=== PATIENT | male | born 1970 | race Caucasian/White ===

== ENCOUNTER 2019-09-26 14:00 | Emergency (ER) | payer SELFPAY ==
[2019-09-26] MEDS ORDERED: TORAdol 30 mg Injection IM ONE (14:16)
[2019-09-26 14:18] VITALS: O2SAT 96
--- NOTE | 2019-09-26 14:19 | ERPHSYRPT ---
- History of Present Illness Time Seen by Provider: 09/26/19 14:10 Source: patient Exam Limitations: no limitations Patient Subjective Stated Complaint: pt reports right elbow pain for 1 1/2 months. pt denies any type of injury or accident. 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 Triage Nursing Assessment: pt is aox3, pupils perrl, afebrile, resps easy and non labored, cap refill < 3 seconds, radial pulses strong an equal, ROM, sensation intact. skin is intact, no obvious injury or defomity. Physician History: Patient has had painful right posterior elbow pain for the past 6 weeks. 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 Occurred: other (6 weeks ago) Method of Injury: unknown Quality: constant Severity of Pain-Max: severe Severity of Pain-Current: severe Extremities Pain Location: elbow: right (posterior), forearm: right (proximal posterior) Modifying Factors: Worsens With: movement (particularly lifting) Associated Symptoms: No back pain, No chills, No chest discomfort, No chest pain , No dyspnea, No fever, No jaw pain, No nausea, No neck pain, No sweating, No short of breath, No vomiting Allergies/Adverse Reactions: No Known Drug Allergies Allergy (Verified 09/26/19 14:18) Hx Tetanus, Diphtheria Vaccination/Date Given: (unk) Hx Influenza Vaccination/Date Given: Yes Hx Pneumococcal Vaccination/Date Given: No Immunizations Up to Date: Yes - Review of Systems Constitutional: No Fever, No Chills Eyes: No Symptoms, No Eye Pain Ears, Nose, & Throat: No Symptoms, No Mouth Swelling, No Painful Swallowing Respiratory: No Cough, No Dyspnea Cardiac: No Chest Pain, No Edema, No Syncope Abdominal/Gastrointestinal: No Abdominal Pain, No Nausea, No Vomiting, No Diarrhea Genitourinary Symptoms: No Dysuria, No Hematuria Musculoskeletal: No Arthralgias, No Back Pain, No Neck Pain, No Fall, No Joint Redness, No Joint Pain Skin: No Rash Neurological: No Dizziness, No Focal Weakness, No Sensory Changes Psychological: No Symptoms Endocrine: No Symptoms, No Polyuria Hematologic/Lymphatic: No Easy Bleeding, No Easy Bruising All Other Systems: Reviewed and Negative - Past Medical History Pertinent Past Medical History: No Endocrine Medical History: Diabetes Type II Other Medical History: hx of kidney stones - Past Surgical History Past Surgical History: Yes Neuro Surgical History: No Pertinent History Cardiac: No Pertinent History Respiratory: No Pertinent History Gastrointestinal: No Pertinent History Genitourinary: No Pertinent History Musculoskeletal: Orthopedic Surgery Male Surgical History: No Pertinent History Other Surgical History: LEFT ELBOW SURGERYx3. neck surgery - Social History Smoking Status: Never smoker Exposure to second hand smoke: No Drug Use: none Patient Lives Alone: Yes - Nursing Vital Signs Nursing Vital Signs: Initial Vital Signs Temperature 98.0 F 09/26/19 14:06 Pulse Rate 95 H 09/26/19 14:06 Respiratory Rate 20 09/26/19 14:06 Blood Pressure 108/81 09/26/19 14:06 O2 Sat by Pulse Oximetry 96 09/26/19 14:06 Pain Scale Pain Intensity 2 - Physical Exam General Appearance: no apparent distress, alert Eyes, Ears, Nose, Throat Exam: moist mucous membranes, No pharynx normal Neck Exam: non-tender, supple, No limited range of motion, No lymphadenopathy (R ), No lymphadenopathy (L), No tenderness midline Cardiovascular/Respiratory Exam: chest non-tender, normal breath sounds, regular rate/rhythm, heart sounds normal, no JVD, no respiratory distress, normal peripheral pulses Abdominal Exam: non-tender, soft, No guarding Back Exam: normal inspection, No CVA tenderness, No vertebral tenderness Shoulder Exam: normal inspection, non-tender, no evidence of injury, normal ROM , No limited ROM Elbow/Forearm Exam: normal inspection, no evidence of injury, normal ROM, bone tenderness (posterior proximal olecranon), pain (posterior aspect of the olecranon only; no pain at the elbow joint, or insertion of the extensor tendons), No asymmetry, No deformity, No ecchymosis, No limited ROM, No soft tissue tenderness, No swelling Wrist Exam: normal inspection, non-tender, no evidence of injury, normal ROM, No ecchymosis Hand Exam: normal inspection, non-tender, no evidence of injury, normal ROM, No deformity DTR - Upper Extremity Exam: bicep (R): 2+, bicep (L): 2+, tricep (R): 2+, tricep (L): 2+ Neuro/Tendon Exam: normal sensation, normal motor functions, normal tendon functions Mental Status Exam: alert, oriented x 3, cooperative Skin Exam: normal color, warm, dry, No rash, No petechiae, No jaundice, No abrasion, No cyanosis, No diaphoresis, No ecchymosis SpO2 Interpretation: normal SpO2: 96 O2 Delivery: Room Air - Course Nursing assessment & vital signs reviewed: Yes - Radiology Exams Right Elbow X-ray Interpretation: Interpreted by me, Reviewed by me, No Fracture, Nml Alignment, Nml Soft Tissues Ordered Tests: Active Orders 24 hr Category Date Time Status ELBOW (MINIMUM 3 VIEWS) Stat Exams 09/26/19 14:17 Taken Medication Summary Discontinued Medications Generic Name Dose Route Start Last Admin Trade Name Juma PRN Reason Stop Dose Admin Ketorolac Tromethamine 60 mg 09/26/19 14:16 09/26/19 14:34 Toradol 30 Mg Injection IM 09/26/19 14:17 60 mg STAT ONE Administration Ketorolac Tromethamine Confirm 09/26/19 14:33 Toradol 30 Mg Injection Administered 09/26/19 14:34 Dose 60 mg .ROUTE .[employer] ONE - Progress Progress: improved Progress Note: 09/26/19 15:00 Pain improving. No neurologic or vascular deficits distal to the area of pain. 09/26/19 15:06 the patient has had right posterior elbow pain for the past 6 weeks. 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 Patient had negative x-rays at today's examination and had no appreciable neurovascular deficits or any signs or symptoms consistent with tennis or golfer's elbow at this examination of the tendon insertions in the elbow. My concern is that the pain was do to repetitive pressure to the area from his position on how he drives to location and about any other known mechanism of injury hernia the repetitive strain injury to the right elbow joint. Patient was treated with Toradol which help with some of his discomfort. Patient will be given instructions on how to ice the area and followup with either his primary care provider or orthopedic clinic in 2 days to determine the need for further evaluation such as MRI, it infrastructure specialist referral, or referral to physical therapy/occupational therapy. I reviewed with patient in detail with signs and symptoms to come back to emergency room as patient does not require any media production support manager evaluation or referral to any other tertiary care center or inpatient evaluation today. Counseled pt/family regarding: diagnosis, need for follow-up, rad results - Departure Departure Disposition: Home Clinical Impression: Right elbow pain Condition: Good Critical Care Time: No Referrals: BERNA PARRISH [Primary Care Provider] - [facility]-Ortho M-F [id number] Instructions: Contusion (DC), Elbow Sprain (DC), Overuse Injuries Additional Instructions: Your x-rays were interpreted as negative for any fractures or dislocations at this time explaining her pain. Follow up with your primary care provider or the orthopedic walk-in clinic in 2 days to continue evaluation of her pain. Do your best to try to take the stress off of that area of your elbow including watching how your shifting away when you or driving. Return immediately back return if any worsening discoloration to her hand, weakness her hand, loss of sensation to her forearm or hand, worsening pain, or any other concerning signs or symptoms that were not present at today's emergency room visit for immediate reevaluation in the emergency department. Prescriptions: Etodolac 400 mg [Lodine 400 mg] 400 mg PO BID PRN PRN #20 tablet PRN Reason: Pain
[2019-09-26] MEDS ORDERED: TORAdol 30 mg Injection ONE (14:33)
[2019-09-26 14:55] VITALS: BP 118/82; PULSE 96
--- NOTE | 2019-09-26 20:56 | XRAY ---
Indication: Posterior elbow pain 6 months. Comparison: None 3 views of the right elbow obtained. No bony, articular, or soft tissue abnormalities.
== END 2019-09-26 15:11 | disposition home or self-care (01) ==
LOC: ED 14:00
DX: M25.521 Pain in right elbow (principal); E11.9 Type 2 diabetes mellitus without complications
CPT/HCPCS: 73080; 96372; 99284; J1885

== ENCOUNTER 2024-04-17 23:02 | Emergency (ER) | payer OTHER ==
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
[2024-04-17 23:40] VITALS: TEMP 97.6
[2024-04-18 00:10] LABS: Absolute Neutrophil Ct (ANC) 5.45 x10^3/uL (1.78-5.38); BASOPHIL % 0.7 % (0.2-1.2); Basophil (Absolute #) 0.05 x10^3/uL (0.01-0.08); Eosinophil % 0.7 % (0.8-7.0); Eosinophil (Absolute #) 0.05 x10^3/uL (0.04-0.54); Hematocrit 43.8 % (40.1-51.0); Hemoglobin 15.3 g/dL (13.7-17.5); IMMATURE GRAN # 0.03 x10^3u/L (0.001-0.031); IMMATURE GRAN % 0.4 % (0.001-0.429); Lymphocyte (Absolute #) 1.09 x10^3/uL (1.32-3.57); Lymphocytes % 15.1 % (21.8-53.1); Mean Cell Volume 84.1 fL (79.0-92.2); Mean Corpuscular Hemoglobin 29.4 pg (25.7-32.2); Mean Corpuscular Hgb Concent. 34.9 g/dL (32.3-36.5); Mean Platelet Volume 11.3 fL (9.4-12.4); Monocyte (Absolute #) 0.53 x10^3/uL (0.30-0.82); Monocytes % 7.4 % (5.3-12.2); Neutrophil % 75.7 % (34.0-67.9); Platelet Count 149 x10^3/uL (163-337); Red Blood Count 5.21 x10^6/uL (4.63-6.08); Red Cell Distribution Width 12.5 % (11.6-14.4); White Blood Count 7.2 x10^3/uL (4.23-9.07)
[2024-04-18 00:23] LABS: ANION GAP 18.3 MEQ/L (5-15); Calcium 9.8 mg/dL (8.4-10.2); Creatinine 1 0.74 mg/dL (0.66-1.25); EST GLOMERULAR FILTRATION RATE 108.3 ML/MIN; Potassium 4.3 mmol/L (3.5-5.1)
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
[2024-04-18 02:05] VITALS: BP 108/81; PULSE 78; RESP 17; O2SAT 97
[2024-04-18] MEDS ORDERED: PERCOCET TABLET 5/325MG ONE (02:06)
[2024-04-18] MEDS: PERCOCET TABLET 5/325MG PO STA ×2 (02:07→02:09)
== END 2024-04-18 02:19 | disposition home or self-care (01) ==
LOC: ED 23:02
DX: Z04.1 Encounter for examination and observation following transport accident (principal); S22.42XA Multiple fractures of ribs, left side, initial encounter for closed fracture; S32.030A Wedge compression fracture of third lumbar vertebra, initial encounter for closed fracture; S32.018A Other fracture of first lumbar vertebra, initial encounter for closed fracture; S32.028A Other fracture of second lumbar vertebra, initial encounter for closed fracture; S32.038A Other fracture of third lumbar vertebra, initial encounter for closed fracture; S02.2XXA Fracture of nasal bones, initial encounter for closed fracture; S02.401A Maxillary fracture, unspecified side, initial encounter for closed fracture; V89.2XXA Person injured in unspecified motor-vehicle accident, traffic, initial encounter; M54.2 Cervicalgia; E11.9 Type 2 diabetes mellitus without complications; E78.5 Hyperlipidemia, unspecified; Z79.4 Long term (current) use of insulin; Z79.891 Long term (current) use of opiate analgesic; Z79.899 Other long term (current) drug therapy
CPT/HCPCS: 36415; 70450; 71250; 72125; 74176; 76376; 80048; 84484; 85025; 93005; 99285; A9270-GY

== ENCOUNTER 2025-06-05 10:39 | Inpatient (IN) | payer OTHER ==
[2025-06-05] MEDS ORDERED: PIPERACILLIN/TAZOBACTAM IV ONE ×3 (11:11→23:35)
--- NOTE | 2025-06-05 11:14 | ERPHSYRPT ---
- History of Present Illness Time Seen by Provider: 06/05/25 10:44 Source: patient Exam Limitations: no limitations Patient Subjective Stated Complaint: pt has severe blisters on his left and right toes and left ankle for 3 days Triage Nursing Assessment: Pt brought to the ER by his girlfriend, marcela finch, rates pain as 2/10 at this time, pulses normal, skin n/w/d, left foot has blisters covering the top surface of every toe except for the large toe which has a blister about the 1/3 of a size of the surface and also has a blister on the lateral ankle, the top of the foot is red and swollen, the right foot has a blister on the medial side of the large toe covering the entire side, does not have any other blisters on him, pt is a diabetic, denies any injuries, doesn't appear to be in any distress Physician History: 55-year-old male presents to the emergency room with bilateral lower extremity blistering for the past 3 days patient reports he is insulin-dependent diabetic denies any fevers or chills denies any sick contacts patient is ambulatory denies any recent known exposure to lakes or areas of water denies any medications patient is now in ED for further eval Occurred: days ago (3) Quality: constant Severity of Pain-Max: moderate Severity of Pain-Current: moderate Lower Extremities Pain: 1st toe: bilateral, 2nd toe: left, 3rd toe: left, 4th toe: left Modifying Factors: Improves With: nothing Allergies/Adverse Reactions: No Known Drug Allergies Allergy (Verified 06/05/25 10:57) Home Medications: Insulin Glargine [Lantus Insulin] 20 unit SQ DAILY 06/05/25 [History] Insulin Lispro [Humalog] 0 unit SQ .SLIDING SCALE 06/05/25 [History] Hx Tetanus, Diphtheria Vaccination/Date Given: (unk) Hx Influenza Vaccination/Date Given: Yes Hx Pneumococcal Vaccination/Date Given: No Travel Risk - International Travel Have you traveled outside of the country in past 3 weeks: No - Emerging Infectious Disease Are you exhibiting symptoms associated with any current EIDs: No - Review of Systems Constitutional: No Fever, No Chills Eyes: No Symptoms Ears, Nose, & Throat: No Symptoms Respiratory: No Cough, No Dyspnea Cardiac: No Chest Pain, No Edema, No Syncope Abdominal/Gastrointestinal: No Abdominal Pain, No Nausea, No Vomiting, No Diarrhea Genitourinary Symptoms: No Dysuria Musculoskeletal: Joint Redness, Joint Swelling, No Back Pain, No Neck Pain Skin: Cellulitis, Induration, No Rash Neurological: No Dizziness, No Focal Weakness, No Sensory Changes Psychological: No Symptoms Endocrine: No Symptoms All Other Systems: Reviewed and Negative - Past Medical History Pertinent Past Medical History: No Neurological History: No Pertinent History ENT History: No Pertinent History Respiratory History: No Pertinent History Endocrine Medical History: Diabetes Type II Musculoskeletal History: No Pertinent History GI Medical History: No Pertinent History History: No Pertinent History Psycho-Social History: No Pertinent History Male Reproductive Disorders: No Pertinent History Other Medical History: hx of kidney stones - Past Surgical History Past Surgical History: Yes Neuro Surgical History: No Pertinent History Cardiac: No Pertinent History Respiratory: No Pertinent History Gastrointestinal: No Pertinent History Genitourinary: No Pertinent History Musculoskeletal: Orthopedic Surgery Male Surgical History: No Pertinent History Other Surgical History: LEFT ELBOW SURGERYx3. neck surgery - Social History Smoking Status: Never smoker Exposure to second hand smoke: Yes Drug Use: none - Social Determinants of Health Will the patient participate in the screening: Yes Do you worry about a steady place to live?: No Do you have any problems with any of the following?: No known problems In the past 12 months,have you had to go without utilities?: No Transportation Issues: No Has anyone in your support network made you feel unsafe?: No Have you or anyone in your house had to go w/o enough food: No - Nursing Vital Signs Nursing Vital Signs: Initial Vital Signs Temperature 97.1 F 06/05/25 10:48 Pulse Rate 88 06/05/25 10:48 Blood Pressure 132/74 06/05/25 10:48 O2 Sat by Pulse Oximetry 97 06/05/25 10:48 Pain Scale Pain Intensity 2 - Physical Exam General Appearance: alert Eyes, Ears, Nose, Throat Exam: moist mucous membranes Neck Exam: non-tender, supple Cardiovascular/Respiratory Exam: chest non-tender, normal breath sounds, regular rate/rhythm, no respiratory distress Gastrointestinal/Abdominal Exam: non-tender, guarding Back Exam: normal inspection, No vertebral tenderness Foot Exam: left foot: pain, soft tissue tenderness, swelling, bilateral foot: other (Patient has a diabetic foot ulcer with some gangrenous changes to the left foot patient does have palpable pulses) Neuro/Tendon Exam: normal sensation, normal motor functions Mental Status Exam: alert, oriented x 3, cooperative Skin Exam: normal color, warm, dry SpO2: 98 Ordered Tests: Active Orders 24 hr Category Date Time Status Bedrest ROUTINE Activity 06/05/25 14:38 Ordered Admit as Inpatient ROUTINE Care 06/05/25 14:35 Ordered Call Admit Doctor for Orders ON ADMISSION Care 06/05/25 14:35 Ordered Fryer Line Helper ROUTINE Care 06/05/25 14:38 Ordered Fryer Line Helper STAT Care 06/05/25 10:51 Active Fryer Line Helper STAT Care 06/05/25 10:52 Active Code Status Order ROUTINE Care 06/05/25 14:35 Ordered IV Insertion STAT Care 06/05/25 10:51 Active POCT Glucose Check ONCE Care 06/05/25 14:35 Ordered POCT Glucose Check STAT Care 06/05/25 12:24 Active Pulse Oximetry (ED) STAT Care 06/05/25 10:51 Active Telemetry q6h Care 06/05/25 14:35 Ordered Telemetry q6h Care 06/05/25 14:38 Ordered NPO Diet 06/05/25 14:38 Ordered LOWER EXTREMITY WO CONTRAST [CT] Stat Exams 06/05/25 10:57 Completed LOWER EXTREMITY WO CONTRAST [CT] Stat Exams 06/05/25 10:58 Completed BLOOD CULTURE Stat Lab 06/05/25 11:10 Received BLOOD CULTURE Stat Lab 06/05/25 11:29 Received CBC W DIFF Stat Lab 06/05/25 11:29 Completed CMP Stat Lab 06/05/25 11:29 Completed CULTURE,URINE Stat Lab 06/05/25 11:26 Received CULTURE,WOUND Stat Lab 06/05/25 11:10 Received CULTURE,WOUND Stat Lab 06/05/25 11:26 Received Glucose,Critical Care Stat Lab 06/05/25 10:51 Completed Lactic Acid Stat Lab 06/05/25 10:51 Completed MAGNESIUM Stat Lab 06/05/25 12:24 Completed POCT GLUCOSE Stat Lab 06/05/25 13:54 Completed PROCALCITONIN Stat Lab 06/05/25 11:29 Completed PROTIME WITH INR Stat Lab 06/05/25 11:00 Completed PTT Stat Lab 06/05/25 11:00 Completed SED RATE [Erythrocyte Sedimentation Rate] Stat Lab 06/05/25 11:00 Completed UA W/RFX UR CULTURE Stat Lab 06/05/25 11:26 Completed Pulse Oximetry CONTINUOUS RT 06/05/25 14:38 Ordered Medication Summary Generic Name Dose Route Start Last Admin Trade Name Juma PRN Reason Stop Dose Admin Vancomycin HCl 1.25 gm in 250 mls @ 150 mls/hr 06/05/25 11:15 06/05/25 14:01 Vancomycin 1.25 Gm/250 Ml Bag IV 06/08/25 11:14 Infused Q12H OFELIA Infusion Discontinued Medications Generic Name Dose Route Start Last Admin Trade Name uJma PRN Reason Stop Dose Admin Sodium Chloride 1,000 mls @ 999 mls/hr 06/05/25 10:51 06/05/25 12:10 Sodium Chloride 0.9% 1000 Ml IV 06/05/25 11:51 Infused .Q1H1M STA Infusion Sodium Chloride Confirm 06/05/25 11:06 Sodium Chloride 0.9% 1000 Ml Administered 06/05/25 11:07 Dose 1,000 mls @ ud .ROUTE .STK-MED ONE Piperacillin Sod/Tazobactam 100 mls @ 200 mls/hr 06/05/25 11:08 06/05/25 11:53 Sod 4.5 gm/ Sodium Chloride IV 06/05/25 11:37 Infused STAT STA Infusion Sodium Chloride Confirm 06/05/25 11:11 Sodium Chloride 0.9% Administered 06/05/25 11:12 Dose 100 mls @ ud .ROUTE .STK-MED ONE Sodium Chloride 1,000 mls @ 999 mls/hr 06/05/25 12:24 06/05/25 13:43 Sodium Chloride 0.9% 1000 Ml IV 06/05/25 13:24 Infused .Q1H1M STA Infusion Sodium Chloride Confirm 06/05/25 12:27 Sodium Chloride 0.9% 1000 Ml Administered 06/05/25 12:28 Dose 1,000 mls @ ud .ROUTE .STK-MED ONE Piperacillin Sod/Tazobactam Sod Confirm 06/05/25 11:11 Piperacillin/Tazobactam Sodium 4.5 Gm Vial Administered 06/05/25 11:12 Dose 4.5 gm IV .STK-MED ONE Lab/Rad Data: Laboratory Result Diagrams 06/05/25 11:29 06/05/25 11:29 Laboratory Results 06/05/25 06/05/25 06/05/25 Range/Units 13:54 12:24 11:29 WBC (4.23-9.07) x10^3/uL RBC (4.63-6.08) x10^6/uL Hgb (13.7-17.5) g/dL Hct (40.1-51.0) % MCV (79.0-92.2) fL MCH (25.7-32.2) pg MCHC (32.3-36.5) g/dL RDW (11.6-14.4) % Plt Count (163-337) x10^3/uL MPV (9.4-12.4) fL Gran % (34.0-67.9) % Immature Gran % (Auto) (0.001-0.429) % Nucleat RBC Rel Count (0.00-0.2) % Eos # (Auto) (0.04-0.54) x10^3/uL Immature Gran # (Auto) (0.001-0.031) x10^3u/L Absolute Lymphs (auto) (1.32-3.57) x10^3/uL Absolute Monos (auto) (0.30-0.82) x10^3/uL Absolute Nucleated RBC (0.00-0.012) x10^3u/L Lymphocytes % (21.8-53.1) % Monocytes % (5.3-12.2) % Eosinophils % (0.8-7.0) % Basophils % (0.2-1.2) % Absolute Granulocytes (1.78-5.38) x10^3/uL Basophils # (0.01-0.08) x10^3/uL ESR (0-15) mm/hr PT (9.4-12.5) SECONDS INR (0.8-3.0) APTT (25.1-36.5) SECONDS Glucose (70-110) Sodium (135-145) mmol/L Potassium (3.5-5.1) mmol/L Chloride (98-107) mmol/L Carbon Dioxide (22-30) mmol/L Anion Gap (5-15) MEQ/L BUN (9-20) mg/dL Creatinine (0.66-1.25) mg/dL Estimated GFR ML/MIN POC Glucometer 378 H (74 to 106) mg/dL Lactic Acid (0.4-2.0) Calcium (8.4-10.2) mg/dL Magnesium 2.0 (1.6-2.3) mg/dL Total Bilirubin (0.2-1.3) mg/dL AST (17-59) U/L ALT (0-50) U/L Alkaline Phosphatase (38-126) U/L Serum Total Protein (6.3-8.2) g/dL Albumin (3.5-5.0) g/dL Procalcitonin (0.030-0.080) ng/mL Urine Color (Yellow) Urine Appearance (Clear) Urine pH (4.6-8.0) Ur Specific [place] (1.005-1.030) Urine Protein (Negative) Urine Glucose (UA) (Negative) mg/dL Urine Ketones (Negative) Urine Blood (Negative) Urine Nitrite (Negative) Urine Bilirubin (Negative) Urine Urobilinogen (0.2) mg/dL Ur Leukocyte Esterase (Negative) U Hyaline Cast (Auto) (0-2) /LPF Urine Microscopic RBC (0-5) /HPF Urine Microscopic WBC (0-5) /HPF Ur Epithelial Cells (None Seen) /HPF Urine Bacteria (None Seen) /HPF Urine Culture Reflexed (NO) ABO Group A Rh Factor NEGATIVE Antibody Screen NEGATIVE (NEGATIVE) 06/05/25 06/05/25 06/05/25 Range/Units 11:29 11:29 11:29 WBC 7.0 (4.23-9.07) x10^3/uL RBC 4.61 L (4.63-6.08) x10^6/uL Hgb 12.8 L (13.7-17.5) g/dL Hct 40.9 (40.1-51.0) % MCV 88.7 (79.0-92.2) fL MCH 27.8 (25.7-32.2) pg MCHC 31.3 L (32.3-36.5) g/dL RDW 13.1 (11.6-14.4) % Plt Count 126 L (163-337) x10^3/uL MPV 11.1 (9.4-12.4) fL Gran % 72.6 H (34.0-67.9) % Immature Gran % (Auto) 0.6 H (0.001-0.429) % Nucleat RBC Rel Count 0.0 (0.00-0.2) % Eos # (Auto) 0.14 (0.04-0.54) x10^3/uL Immature Gran # (Auto) 0.04 H (0.001-0.031) x10^3u/L Absolute Lymphs (auto) 1.03 L (1.32-3.57) x10^3/uL Absolute Monos (auto) 0.63 (0.30-0.82) x10^3/uL Absolute Nucleated RBC 0.00 (0.00-0.012) x10^3u/L Lymphocytes % 14.8 L (21.8-53.1) % Monocytes % 9.1 (5.3-12.2) % Eosinophils % 2.0 (0.8-7.0) % Basophils % 0.9 (0.2-1.2) % Absolute Granulocytes 5.06 (1.78-5.38) x10^3/uL Basophils # 0.06 (0.01-0.08) x10^3/uL ESR (0-15) mm/hr PT (9.4-12.5) SECONDS INR (0.8-3.0) APTT (25.1-36.5) SECONDS Glucose 728 H* (70-110) Sodium 128 L (135-145) mmol/L Potassium 4.3 (3.5-5.1) mmol/L Chloride 94 L (98-107) mmol/L Carbon Dioxide 24 (22-30) mmol/L Anion Gap 14.2 (5-15) MEQ/L BUN 16 (9-20) mg/dL Creatinine 0.64 L (0.66-1.25) mg/dL Estimated GFR 111.8 ML/MIN POC Glucometer (74 to 106) mg/dL Lactic Acid (0.4-2.0) Calcium 8.8 (8.4-10.2) mg/dL Magnesium (1.6-2.3) mg/dL Total Bilirubin 1.10 (0.2-1.3) mg/dL AST 24 (17-59) U/L ALT 24 (0-50) U/L Alkaline Phosphatase 166 H (38-126) U/L Serum Total Protein 7.8 (6.3-8.2) g/dL Albumin 3.9 (3.5-5.0) g/dL Procalcitonin 0.183 H (0.030-0.080) ng/mL Urine Color (Yellow) Urine Appearance (Clear) Urine pH (4.6-8.0) Ur Specific [place] (1.005-1.030) Urine Protein (Negative) Urine Glucose (UA) (Negative) mg/dL Urine Ketones (Negative) Urine Blood (Negative) Urine Nitrite (Negative) Urine Bilirubin (Negative) Urine Urobilinogen (0.2) mg/dL Ur Leukocyte Esterase (Negative) U Hyaline Cast (Auto) (0-2) /LPF Urine Microscopic RBC (0-5) /HPF Urine Microscopic WBC (0-5) /HPF Ur Epithelial Cells (None Seen) /HPF Urine Bacteria (None Seen) /HPF Urine Culture Reflexed (NO) ABO Group Rh Factor Antibody Screen (NEGATIVE) 06/05/25 06/05/25 06/05/25 Range/Units 11:26 11:00 11:00 WBC (4.23-9.07) x10^3/uL RBC (4.63-6.08) x10^6/uL Hgb (13.7-17.5) g/dL Hct (40.1-51.0) % MCV (79.0-92.2) fL MCH (25.7-32.2) pg MCHC (32.3-36.5) g/dL RDW (11.6-14.4) % Plt Count (163-337) x10^3/uL MPV (9.4-12.4) fL Gran % (34.0-67.9) % Immature Gran % (Auto) (0.001-0.429) % Nucleat RBC Rel Count (0.00-0.2) % Eos # (Auto) (0.04-0.54) x10^3/uL Immature Gran # (Auto) (0.001-0.031) x10^3u/L Absolute Lymphs (auto) (1.32-3.57) x10^3/uL Absolute Monos (auto) (0.30-0.82) x10^3/uL Absolute Nucleated RBC (0.00-0.012) x10^3u/L Lymphocytes % (21.8-53.1) % Monocytes % (5.3-12.2) % Eosinophils % (0.8-7.0) % Basophils % (0.2-1.2) % Absolute Granulocytes (1.78-5.38) x10^3/uL Basophils # (0.01-0.08) x10^3/uL ESR 75 H (0-15) mm/hr PT 10.6 (9.4-12.5) SECONDS INR 0.94 (0.8-3.0) APTT 25.8 (25.1-36.5) SECONDS Glucose (70-110) Sodium (135-145) mmol/L Potassium (3.5-5.1) mmol/L Chloride (98-107) mmol/L Carbon Dioxide (22-30) mmol/L Anion Gap (5-15) MEQ/L BUN (9-20) mg/dL Creatinine (0.66-1.25) mg/dL Estimated GFR ML/MIN POC Glucometer (74 to 106) mg/dL Lactic Acid (0.4-2.0) Calcium (8.4-10.2) mg/dL Magnesium (1.6-2.3) mg/dL Total Bilirubin (0.2-1.3) mg/dL AST (17-59) U/L ALT (0-50) U/L Alkaline Phosphatase (38-126) U/L Serum Total Protein (6.3-8.2) g/dL Albumin (3.5-5.0) g/dL Procalcitonin (0.030-0.080) ng/mL Urine Color Yellow (Yellow) Urine Appearance Clear (Clear) Urine pH 6.0 (4.6-8.0) Ur Specific [place] >=1.030 A (1.005-1.030) Urine Protein Negative (Negative) Urine Glucose (UA) >=1000 A (Negative) mg/dL Urine Ketones Trace A (Negative) Urine Blood Negative (Negative) Urine Nitrite Negative (Negative) Urine Bilirubin Negative (Negative) Urine Urobilinogen 1.0 A (0.2) mg/dL Ur Leukocyte Esterase Trace A (Negative) U Hyaline Cast (Auto) NONE SEEN (0-2) /LPF Urine Microscopic RBC 0-2 (0-5) /HPF Urine Microscopic WBC 21-50 A (0-5) /HPF Ur Epithelial Cells None Seen (None Seen) /HPF Urine Bacteria Many A (None Seen) /HPF Urine Culture Reflexed YES (NO) ABO Group Rh Factor Antibody Screen (NEGATIVE) 06/05/25 Range/Units 10:51 WBC (4.23-9.07) x10^3/uL RBC (4.63-6.08) x10^6/uL Hgb (13.7-17.5) g/dL Hct (40.1-51.0) % MCV (79.0-92.2) fL MCH (25.7-32.2) pg MCHC (32.3-36.5) g/dL RDW (11.6-14.4) % Plt Count (163-337) x10^3/uL MPV (9.4-12.4) fL Gran % (34.0-67.9) % Immature Gran % (Auto) (0.001-0.429) % Nucleat RBC Rel Count (0.00-0.2) % Eos # (Auto) (0.04-0.54) x10^3/uL Immature Gran # (Auto) (0.001-0.031) x10^3u/L Absolute Lymphs (auto) (1.32-3.57) x10^3/uL Absolute Monos (auto) (0.30-0.82) x10^3/uL Absolute Nucleated RBC (0.00-0.012) x10^3u/L Lymphocytes % (21.8-53.1) % Monocytes % (5.3-12.2) % Eosinophils % (0.8-7.0) % Basophils % (0.2-1.2) % Absolute Granulocytes (1.78-5.38) x10^3/uL Basophils # (0.01-0.08) x10^3/uL ESR (0-15) mm/hr PT (9.4-12.5) SECONDS INR (0.8-3.0) APTT (25.1-36.5) SECONDS Glucose 685 H* (70-110) Sodium (135-145) mmol/L Potassium (3.5-5.1) mmol/L Chloride (98-107) mmol/L Carbon Dioxide (22-30) mmol/L Anion Gap (5-15) MEQ/L BUN (9-20) mg/dL Creatinine (0.66-1.25) mg/dL Estimated GFR ML/MIN POC Glucometer (74 to 106) mg/dL Lactic Acid 1.8 (0.4-2.0) Calcium (8.4-10.2) mg/dL Magnesium (1.6-2.3) mg/dL Total Bilirubin (0.2-1.3) mg/dL AST (17-59) U/L ALT (0-50) U/L Alkaline Phosphatase (38-126) U/L Serum Total Protein (6.3-8.2) g/dL Albumin (3.5-5.0) g/dL Procalcitonin (0.030-0.080) ng/mL Urine Color (Yellow) Urine Appearance (Clear) Urine pH (4.6-8.0) Ur Specific [place] (1.005-1.030) Urine Protein (Negative) Urine Glucose (UA) (Negative) mg/dL Urine Ketones (Negative) Urine Blood (Negative) Urine Nitrite (Negative) Urine Bilirubin (Negative) Urine Urobilinogen (0.2) mg/dL Ur Leukocyte Esterase (Negative) U Hyaline Cast (Auto) (0-2) /LPF Urine Microscopic RBC (0-5) /HPF Urine Microscopic WBC (0-5) /HPF Ur Epithelial Cells (None Seen) /HPF Urine Bacteria (None Seen) /HPF Urine Culture Reflexed (NO) ABO Group Rh Factor Antibody Screen (NEGATIVE) - Progress Progress Note: 06/05/25 11:13 Discussed the case with Dr. Haynes the [employer] sales consultant who recommends IV antibiotics and admission for potential washout we will obtain CT imaging patient does have an elevated blood sugar however her pH is within normal limits unlikely DKA but hyperglycemia due to infection patient has diabetic foot ulcer with gangrenous changes started on IV Vanco and Zosyn with fluids will need admission awaiting lab results and admission to the hospital 06/05/25 14:23 Ligaments and Tendons: Unremarkable major foot ligaments and tendons, including the Achilles tendon, plantar fascia, and other tendons around the foot. IMPRESSION: 1. Degenerative changes. Calcaneal spur noted. 2. No lytic or sclerotic lesions. 3. Subcutaneous edema seen around the foot. 4. Soft tissue swelling around the right fifth metatarsophalangeal joint. 5. MRI study is advised to rule out bone marrow edema. 06/05/25 14:23 None. TECHNIQUE: Contiguous axial CT images of the left foot were obtained without intravenous contrast. Sagittal and coronal multiplanar reformats were acquired. One of the following dose reduction techniques was utilized for this exam: Automated exposure control, adjustment of the mA and/or kV according to patient size, and use of iterative reconstruction. FINDINGS: Bones: Normal alignment of the tarsal, metatarsal, and phalangeal bones. No fractures or dislocations. No lytic or sclerotic lesions. calcaneal spur. Distal Achilles tendon calcifications. Joints: Normal appearance of the ankle, subtalar, midtarsal, and metatarsophalangeal joints. No joint effusions or significant degenerative changes. Normal articular surfaces without erosions or osteophyte formation. Soft Tissues: Subcutaneous edema seen around the foot. Soft tissue swelling around the left metatarsophalangeal joint, with joint effusion. No evidence of tendinopathy or ligamentous injury. Muscles: Normal appearance of the surrounding musculature. No muscle atrophy or abnormal density changes. Ligaments and Tendons: Intact and normal appearance of the major foot ligaments and tendons, including the Achilles tendon, plantar fascia, and other tendons around the foot. IMPRESSION: 1. Degenerative changes. Calcaneal spur noted. 2. No lytic or sclerotic lesions. 3. Subcutaneous edema seen around the foot. 4. Soft tissue swelling around the left metatarsophalangeal joint, with joint effusion. 5. MRI study is advised to rule out bone marrow edema. 06/05/25 14:38 Discussed case with podiatry Dr. Haynes who would be happy to consult for potential washout patient was started on IV Vanco and Zosyn patient will be admitted to the hospitalist service discussed with Dr. Reyna. Admited to medicine service - Departure Departure Disposition: In-patient Admission Clinical Impression: Hyperglycemia, Hyperosmolar hyperglycemic state (HHS), Pseudohyponatremia Diabetic foot ulcer Qualifiers: Diabetic foot ulcer location: unspecified part of foot Diabetes mellitus type: other specified (including JUANCHO) Laterality: unspecified laterality Non-pressure ulcer stage: unspecified non-pressure ulcer stage Qualified Code(s): E13.621 - Other specified diabetes mellitus with foot ulcer UTI (urinary tract infection) Qualifiers: Urinary tract infection type: site unspecified Hematuria presence: without hematuria Qualified Code(s): N39.0 - Urinary tract infection, site not specified Condition: Serious Critical Care Time: No Referrals: CAREN GARZA NP [Primary Care Provider, [facility]] - Follow up/PCP as directed
[2025-06-05 11:15] LABS: Glucose,Critical Care 685.0 (70-110)
[2025-06-05 11:45] LABS: BASOPHIL % 0.9 % (0.2-1.2); Basophil (Absolute #) 0.06 x10^3/uL (0.01-0.08); Eosinophil (Absolute #) 0.14 x10^3/uL (0.04-0.54); Hematocrit 40.9 % (40.1-51.0); Hemoglobin 12.8 g/dL (13.7-17.5); IMMATURE GRAN # 0.04 x10^3u/L (0.001-0.031); IMMATURE GRAN % 0.6 % (0.001-0.429); Lymphocyte (Absolute #) 1.03 x10^3/uL (1.32-3.57); Mean Corpuscular Hemoglobin 27.8 pg (25.7-32.2); Mean Corpuscular Hgb Concent. 31.3 g/dL (32.3-36.5); Monocyte (Absolute #) 0.63 x10^3/uL (0.30-0.82); NUCLEATED RBC # 0.00 x10^3u/L (0.00-0.012); NUCLEATED RBC % 0.0 % (0.00-0.2); Platelet Count 126 x10^3/uL (163-337); Red Blood Count 4.61 x10^6/uL (4.63-6.08); White Blood Count 7.0 x10^3/uL (4.23-9.07)
[2025-06-05 12:05] LABS: Calcium 8.8 mg/dL (8.4-10.2); Carbon Dioxide 24.0 mmol/L (22-30); Creatinine 1 0.64 mg/dL (0.66-1.25); EST GLOMERULAR FILTRATION RATE 111.8 ML/MIN; Potassium 4.3 mmol/L (3.5-5.1); SGOT/AST 24.0 U/L (17-59); SGPT/ALT 24.0 U/L (0-50); Total Protein 7.8 g/dL (6.3-8.2)
[2025-06-05] MEDS: VANCOMYCIN 1.25 GM/250 ML BAG 1.25 GM/250 ML PIGGYBACK IV SCH (12:05)
[2025-06-05 12:07] LABS: INR 0.94 (0.8-3.0); PROTIME 10.6 SECONDS (9.4-12.5); PTT 25.8 SECONDS (25.1-36.5)
[2025-06-05 12:20] LABS: Glucose 728.0 mg/dL (74-106)
[2025-06-05 12:25] LABS: Glucose, Urine >=1000 mg/dL (Negative); Protein,Urine Dip Negative (Negative); RBC 0-2 /HPF (0-5); WBC 21-50 /HPF (0-5)
[2025-06-05 13:57] LABS: ABO TYPING A; RH TYPING NEGATIVE
--- NOTE | 2025-06-05 13:59 | XRAY ---
CLINICAL HISTORY: infection r/o osteo COMPARISON: None. TECHNIQUE: Contiguous axial CT images of the right foot were obtained without intravenous contrast. Sagittal and coronal multiplanar reformats were acquired. One of the following dose reduction techniques were utilized for this exam: Automated exposure control, adjustment of the mA and/or kV according to patient size, use of iterative reconstruction. DLP: 1997 mGy-cm, CTDI: 62 mGy FINDINGS: Movement artifacts degrade image quality. Bones: Normal alignment of the tarsal, metatarsal, and phalangeal bones. No fractures or dislocations. No lytic or sclerotic lesions. Calcaneal spur noted. Achillis tendon enthesophyte. Distal tibial osteophytes. Joints: Soft tissue swelling around the right fifth metatarsophalangeal joint. Normal appearance of the ankle, subtalar, midtarsal, and other metatarsophalangeal joints. No joint effusions. Mild degenerative changes. Soft Tissues: Vascular calcifications. Subcutaneous edema seen around the foot. No evidence of tendinopathy or ligamentous injury. Muscles: Normal appearance of the surrounding musculature. No muscle atrophy or abnormal density changes. Ligaments and Tendons: Unremarkable major foot ligaments and tendons, including the Achilles tendon, plantar fascia, and other tendons around the foot. IMPRESSION: 1. Degenerative changes. Calcaneal spur noted. 2. No lytic or sclerotic lesions. 3. Subcutaneous edema seen around the foot. 4. Soft tissue swelling around the right fifth metatarsophalangeal joint. 5. MRI study is advised to rule out bone marrow edema. Electronically Signed by: Luis Manuel Guadalupe MD. (06/05/2025 13:57:33 EST)
--- NOTE | 2025-06-05 14:01 | XRAY ---
CLINICAL HISTORY: imnfection r/o osteomyelitis COMPARISON: None. TECHNIQUE: Contiguous axial CT images of the left foot were obtained without intravenous contrast. Sagittal and coronal multiplanar reformats were acquired. One of the following dose reduction techniques was utilized for this exam: Automated exposure control, adjustment of the mA and/or kV according to patient size, and use of iterative reconstruction. FINDINGS: Bones: Normal alignment of the tarsal, metatarsal, and phalangeal bones. No fractures or dislocations. No lytic or sclerotic lesions. calcaneal spur. Distal Achilles tendon calcifications. Joints: Normal appearance of the ankle, subtalar, midtarsal, and metatarsophalangeal joints. No joint effusions or significant degenerative changes. Normal articular surfaces without erosions or osteophyte formation. Soft Tissues: Subcutaneous edema seen around the foot. Soft tissue swelling around the left metatarsophalangeal joint, with joint effusion. No evidence of tendinopathy or ligamentous injury. Muscles: Normal appearance of the surrounding musculature. No muscle atrophy or abnormal density changes. Ligaments and Tendons: Intact and normal appearance of the major foot ligaments and tendons, including the Achilles tendon, plantar fascia, and other tendons around the foot. IMPRESSION: 1. Degenerative changes. Calcaneal spur noted. 2. No lytic or sclerotic lesions. 3. Subcutaneous edema seen around the foot. 4. Soft tissue swelling around the left metatarsophalangeal joint, with joint effusion. 5. MRI study is advised to rule out bone marrow edema. Electronically Signed by: Luis Manuel Guadalupe MD. (06/05/2025 14:01:17 EST)
--- NOTE | 2025-06-05 15:40 | PCM.HP ---
<DIDI TROTTER - Last Filed: 06/05/25 15:35> History of Present Illness - Chief Complaint Chief Complaint: Diabetic foot ulcer with gangrenous changes Date: 06/05/25 History of Present Illness: Mr.SOWDERS ARORA is a 55 year old male with a pmhx of insulin-dependent type 2 diabetes and hyperlipidemia who presented on 06-05-25 for evaluation of rapidly progressive bilateral foot blistering and erythema. He reports waking up with severe blister formation involving all toes of the left foot, accompanied by erythema extending to the midfoot and an additional blister at the left ankle. He notes a smaller blister on the right great toe along the medial aspect. He denies any recent trauma, new footwear, chemical exposures, mora, or systemic symptoms such as fever or chills. Pain is described as a constant sharp sensation, minimal at rest but escalating to severe intensity with weight- bearing. He reports no numbness or new sensory deficit. Examination demonstrated intact distal pulses, normal strength, and preserved sensation bilaterally, with left-sided erythema more prominent than the right. Denies fever,cough, sob, cp, abdominal pain, DIAZ, dizziness, N/V/D. Vital signs were stable on arrival. Lab findings remarkable for normocytic anemia with hemoglobin 12.8, marked hyperglycemia with glucose 728 improving to 378 following fluids, and pseudohyponatremia with sodium 128 in the setting of severe hyperglycemia. No acidosis was present; carbon dioxide, anion gap, and lactic acid were all within normal limits. Inflammatory markers were notable for elevated ESR 75 and procalcitonin 0.183. Alk phos was elevated at 166. Urinalysis demonstrated heavy glucosuria greater than 1000, trace leukocyte esterase, 2150 WBCs, and bacteria on microscopy. CT imaging of the right lower extremity showed degenerative changes with a calcaneal spur, soft tissue edema around the foot, and swelling involving the right fifth metatarsophalangeal joint without lytic or sclerotic lesions. CT of the left lower extremity demonstrated similar degenerative changes and calcaneal spur, with more significant soft tissue edema, swelling involving the left metatarsophalangeal joint, and associated joint effusion. Findings raised concern for deep soft-tissue infection; MRI was recommended but is unavailable at this facility over the weekend. Dr. Haynes (Podiatry) reviewed the case and is evaluating for possible operative washout . Empiric treatment with vancomycin and piperacillin-tazobactam has been initiated. - Review of Systems Constitutional: No Symptoms Eyes: No Symptoms Ears, Nose, & Throat: No Symptoms Respiratory: No Symptoms Cardiac: No Symptoms Abdominal/Gastrointestinal: No Symptoms Genitourinary Symptoms: No Symptoms Musculoskeletal: No Symptoms Skin: Skin Lesions, Other Neurological: No Symptoms Psychological: No Symptoms Endocrine: No Symptoms Hematologic/Lymphatic: No Symptoms Immunological/Allergic: No Symptoms Medications & Allergies Home Medications: Home Medication List Insulin Glargine [Lantus Insulin] 25 unit SQ BID 06/05/25 [History Confirmed 06/05/25] Insulin Lispro [Humalog] 0 unit SQ .SLIDING SCALE 06/05/25 [History Confirmed 06/05/25] Allergies/Adverse Reactions: Allergies Allergy/AdvReac Type Severity Reaction Status Date / Time No Known Drug Allergies Allergy Verified 06/05/25 10:57 - Past Medical History Past Medical History: No Neurological History: No Pertinent History ENT History: No Pertinent History Cardiac History: High Cholesterol Respiratory History: No Pertinent History Endocrine Medical History: Diabetes Type II Musculoskelatal History: No Pertinent History GI Medical History: No Pertinent History History: Other Pyscho-Social History: No Pertinent History Male Reproductive Disorders: No Pertinent History Comment: hx of kidney stones - Past Surgical History Past Surgical History: Yes Neuro Surgical History: No Pertinent History Cardiac History: No Pertinent History Respiratory Surgery: No Pertinent History GI Surgical History: No Pertinent History Genitourinary Surgical Hx: No Pertinent History Musculskeletal Surgical Hx: Orthopedic Surgery Male Surgical History: No Pertinent History Other Surgical History: LEFT ELBOW SURGERYx3. neck surgery Significant Family History: heart disease, diabetes - Social History Smoking Status: Never smoker Exposure to second hand smoke: Yes Alcohol: Rarely Drug Use: none - Social Determinants of Health Will the patient participate in the screening: Yes Do you worry about a steady place to live?: No Do you have any problems with any of the following?: No known problems In the past 12 months,have you had to go without utilities?: No Have you or anyone in your house had to go without enough: No Transportation Issues: No Has anyone in your support network made you feel unsafe?: No - Physical Exam Vital Signs: Vital Signs - 24 hr Temp Pulse Resp BP BP Pulse Ox 06/05/25 14:57 97 F 70 17 124/79 95 06/05/25 14:39 98 06/05/25 14:00 113/65 98 06/05/25 13:54 97 06/05/25 13:40 95 06/05/25 13:33 96 06/05/25 13:01 117/86 95 06/05/25 12:01 82 14 96/61 95 06/05/25 11:31 83 27 H 111/63 96 06/05/25 11:01 98 06/05/25 11:00 94 H 14 128/82 95 06/05/25 10:48 97.1 F 88 132/74 97 General Appearance: no apparent distress Neurologic Exam: alert, oriented x 3, cooperative Eye Exam: PERRL/EOMI Ears, Nose, Throat Exam: normal ENT inspection Neck Exam: normal inspection Respiratory Exam: normal breath sounds, lungs clear Cardiovascular Exam: regular rate/rhythm, normal heart sounds, normal peripheral pulses (Peripheral pulses intact bilaterally, including DP/PT pulses in both fe et.) Gastrointestinal/Abdomen Exam: soft, normal bowel sounds Rectal Exam: deferred Back Exam: normal inspection Extremity Exam: normal inspection, normal range of motion, inflammation Skin Exam: other (Left foot: Multiplebullae involving all toes; erythema extending to midfoot. Additional blister at the left ankle. Warm to touch. No crepitus. Intact sensation and 5/5 motor strength. Cap refill brisk.Right foot: Isolated blister on the medial right great toe Mild erythema surrounding area.) Results - Labs Lab/Micro Results: Lab Results-Last 24 Hours 06/05/25 06/05/25 06/05/25 Range/Units 10:51 11:00 11:00 WBC (4.23-9.07) x10^3/uL RBC (4.63-6.08) x10^6/uL Hgb (13.7-17.5) g/dL Hct (40.1-51.0) % MCV (79.0-92.2) fL MCH (25.7-32.2) pg MCHC (32.3-36.5) g/dL RDW (11.6-14.4) % Plt Count (163-337) x10^3/uL MPV (9.4-12.4) fL Gran % (34.0-67.9) % Immature Gran % (Auto) (0.001-0.429) % Nucleat RBC Rel Count (0.00-0.2) % Eos # (Auto) (0.04-0.54) x10^3/uL Immature Gran # (Auto) (0.001-0.031) x10^3u/L Absolute Lymphs (auto) (1.32-3.57) x10^3/uL Absolute Monos (auto) (0.30-0.82) x10^3/uL Absolute Nucleated RBC (0.00-0.012) x10^3u/L Lymphocytes % (21.8-53.1) % Monocytes % (5.3-12.2) % Eosinophils % (0.8-7.0) % Basophils % (0.2-1.2) % Absolute Granulocytes (1.78-5.38) x10^3/uL Basophils # (0.01-0.08) x10^3/uL ESR 75 H (0-15) mm/hr PT 10.6 (9.4-12.5) SECONDS INR 0.94 (0.8-3.0) APTT 25.8 (25.1-36.5) SECONDS Glucose 685 H* (70-110) Sodium (135-145) mmol/L Potassium (3.5-5.1) mmol/L Chloride (98-107) mmol/L Carbon Dioxide (22-30) mmol/L Anion Gap (5-15) MEQ/L BUN (9-20) mg/dL Creatinine (0.66-1.25) mg/dL Estimated GFR ML/MIN POC Glucometer (74 to 106) mg/dL Lactic Acid 1.8 (0.4-2.0) Calcium (8.4-10.2) mg/dL Magnesium (1.6-2.3) mg/dL Total Bilirubin (0.2-1.3) mg/dL AST (17-59) U/L ALT (0-50) U/L Alkaline Phosphatase (38-126) U/L Serum Total Protein (6.3-8.2) g/dL Albumin (3.5-5.0) g/dL Procalcitonin (0.030-0.080) ng/mL Urine Color (Yellow) Urine Appearance (Clear) Urine pH (4.6-8.0) Ur Specific Benton (1.005-1.030) Urine Protein (Negative) Urine Glucose (UA) (Negative) mg/dL Urine Ketones (Negative) Urine Blood (Negative) Urine Nitrite (Negative) Urine Bilirubin (Negative) Urine Urobilinogen (0.2) mg/dL Ur Leukocyte Esterase (Negative) U Hyaline Cast (Auto) (0-2) /LPF Urine Microscopic RBC (0-5) /HPF Urine Microscopic WBC (0-5) /HPF Ur Epithelial Cells (None Seen) /HPF Urine Bacteria (None Seen) /HPF Urine Culture Reflexed (NO) ABO Group Rh Factor Antibody Screen (NEGATIVE) 06/05/25 06/05/25 06/05/25 Range/Units 11:26 11:29 11:29 WBC 7.0 (4.23-9.07) x10^3/uL RBC 4.61 L (4.63-6.08) x10^6/uL Hgb 12.8 L (13.7-17.5) g/dL Hct 40.9 (40.1-51.0) % MCV 88.7 (79.0-92.2) fL MCH 27.8 (25.7-32.2) pg MCHC 31.3 L (32.3-36.5) g/dL RDW 13.1 (11.6-14.4) % Plt Count 126 L (163-337) x10^3/uL MPV 11.1 (9.4-12.4) fL Gran % 72.6 H (34.0-67.9) % Immature Gran % (Auto) 0.6 H (0.001-0.429) % Nucleat RBC Rel Count 0.0 (0.00-0.2) % Eos # (Auto) 0.14 (0.04-0.54) x10^3/uL Immature Gran # (Auto) 0.04 H (0.001-0.031) x10^3u/L Absolute Lymphs (auto) 1.03 L (1.32-3.57) x10^3/uL Absolute Monos (auto) 0.63 (0.30-0.82) x10^3/uL Absolute Nucleated RBC 0.00 (0.00-0.012) x10^3u/L Lymphocytes % 14.8 L (21.8-53.1) % Monocytes % 9.1 (5.3-12.2) % Eosinophils % 2.0 (0.8-7.0) % Basophils % 0.9 (0.2-1.2) % Absolute Granulocytes 5.06 (1.78-5.38) x10^3/uL Basophils # 0.06 (0.01-0.08) x10^3/uL ESR (0-15) mm/hr PT (9.4-12.5) SECONDS INR (0.8-3.0) APTT (25.1-36.5) SECONDS Glucose 728 H* (70-110) Sodium 128 L (135-145) mmol/L Potassium 4.3 (3.5-5.1) mmol/L Chloride 94 L (98-107) mmol/L Carbon Dioxide 24 (22-30) mmol/L Anion Gap 14.2 (5-15) MEQ/L BUN 16 (9-20) mg/dL Creatinine 0.64 L (0.66-1.25) mg/dL Estimated GFR 111.8 ML/MIN POC Glucometer (74 to 106) mg/dL Lactic Acid (0.4-2.0) Calcium 8.8 (8.4-10.2) mg/dL Magnesium (1.6-2.3) mg/dL Total Bilirubin 1.10 (0.2-1.3) mg/dL AST 24 (17-59) U/L ALT 24 (0-50) U/L Alkaline Phosphatase 166 H (38-126) U/L Serum Total Protein 7.8 (6.3-8.2) g/dL Albumin 3.9 (3.5-5.0) g/dL Procalcitonin (0.030-0.080) ng/mL Urine Color Yellow (Yellow) Urine Appearance Clear (Clear) Urine pH 6.0 (4.6-8.0) Ur Specific Benton >=1.030 A (1.005-1.030) Urine Protein Negative (Negative) Urine Glucose (UA) >=1000 A (Negative) mg/dL Urine Ketones Trace A (Negative) Urine Blood Negative (Negative) Urine Nitrite Negative (Negative) Urine Bilirubin Negative (Negative) Urine Urobilinogen 1.0 A (0.2) mg/dL Ur Leukocyte Esterase Trace A (Negative) U Hyaline Cast (Auto) NONE SEEN (0-2) /LPF Urine Microscopic RBC 0-2 (0-5) /HPF Urine Microscopic WBC 21-50 A (0-5) /HPF Ur Epithelial Cells None Seen (None Seen) /HPF Urine Bacteria Many A (None Seen) /HPF Urine Culture Reflexed YES (NO) ABO Group Rh Factor Antibody Screen (NEGATIVE) 06/05/25 06/05/25 06/05/25 Range/Units 11:29 11:29 12:24 WBC (4.23-9.07) x10^3/uL RBC (4.63-6.08) x10^6/uL Hgb (13.7-17.5) g/dL Hct (40.1-51.0) % MCV (79.0-92.2) fL MCH (25.7-32.2) pg MCHC (32.3-36.5) g/dL RDW (11.6-14.4) % Plt Count (163-337) x10^3/uL MPV (9.4-12.4) fL Gran % (34.0-67.9) % Immature Gran % (Auto) (0.001-0.429) % Nucleat RBC Rel Count (0.00-0.2) % Eos # (Auto) (0.04-0.54) x10^3/uL Immature Gran # (Auto) (0.001-0.031) x10^3u/L Absolute Lymphs (auto) (1.32-3.57) x10^3/uL Absolute Monos (auto) (0.30-0.82) x10^3/uL Absolute Nucleated RBC (0.00-0.012) x10^3u/L Lymphocytes % (21.8-53.1) % Monocytes % (5.3-12.2) % Eosinophils % (0.8-7.0) % Basophils % (0.2-1.2) % Absolute Granulocytes (1.78-5.38) x10^3/uL Basophils # (0.01-0.08) x10^3/uL ESR (0-15) mm/hr PT (9.4-12.5) SECONDS INR (0.8-3.0) APTT (25.1-36.5) SECONDS Glucose (70-110) Sodium (135-145) mmol/L Potassium (3.5-5.1) mmol/L Chloride (98-107) mmol/L Carbon Dioxide (22-30) mmol/L Anion Gap (5-15) MEQ/L BUN (9-20) mg/dL Creatinine (0.66-1.25) mg/dL Estimated GFR ML/MIN POC Glucometer (74 to 106) mg/dL Lactic Acid (0.4-2.0) Calcium (8.4-10.2) mg/dL Magnesium 2.0 (1.6-2.3) mg/dL Total Bilirubin (0.2-1.3) mg/dL AST (17-59) U/L ALT (0-50) U/L Alkaline Phosphatase (38-126) U/L Serum Total Protein (6.3-8.2) g/dL Albumin (3.5-5.0) g/dL Procalcitonin 0.183 H (0.030-0.080) ng/mL Urine Color (Yellow) Urine Appearance (Clear) Urine pH (4.6-8.0) Ur Specific Benton (1.005-1.030) Urine Protein (Negative) Urine Glucose (UA) (Negative) mg/dL Urine Ketones (Negative) Urine Blood (Negative) Urine Nitrite (Negative) Urine Bilirubin (Negative) Urine Urobilinogen (0.2) mg/dL Ur Leukocyte Esterase (Negative) U Hyaline Cast (Auto) (0-2) /LPF Urine Microscopic RBC (0-5) /HPF Urine Microscopic WBC (0-5) /HPF Ur Epithelial Cells (None Seen) /HPF Urine Bacteria (None Seen) /HPF Urine Culture Reflexed (NO) ABO Group A Rh Factor NEGATIVE Antibody Screen NEGATIVE (NEGATIVE) 06/05/25 Range/Units 13:54 WBC (4.23-9.07) x10^3/uL RBC (4.63-6.08) x10^6/uL Hgb (13.7-17.5) g/dL Hct (40.1-51.0) % MCV (79.0-92.2) fL MCH (25.7-32.2) pg MCHC (32.3-36.5) g/dL RDW (11.6-14.4) % Plt Count (163-337) x10^3/uL MPV (9.4-12.4) fL Gran % (34.0-67.9) % Immature Gran % (Auto) (0.001-0.429) % Nucleat RBC Rel Count (0.00-0.2) % Eos # (Auto) (0.04-0.54) x10^3/uL Immature Gran # (Auto) (0.001-0.031) x10^3u/L Absolute Lymphs (auto) (1.32-3.57) x10^3/uL Absolute Monos (auto) (0.30-0.82) x10^3/uL Absolute Nucleated RBC (0.00-0.012) x10^3u/L Lymphocytes % (21.8-53.1) % Monocytes % (5.3-12.2) % Eosinophils % (0.8-7.0) % Basophils % (0.2-1.2) % Absolute Granulocytes (1.78-5.38) x10^3/uL Basophils # (0.01-0.08) x10^3/uL ESR (0-15) mm/hr PT (9.4-12.5) SECONDS INR (0.8-3.0) APTT (25.1-36.5) SECONDS Glucose (70-110) Sodium (135-145) mmol/L Potassium (3.5-5.1) mmol/L Chloride (98-107) mmol/L Carbon Dioxide (22-30) mmol/L Anion Gap (5-15) MEQ/L BUN (9-20) mg/dL Creatinine (0.66-1.25) mg/dL Estimated GFR ML/MIN POC Glucometer 378 H (74 to 106) mg/dL Lactic Acid (0.4-2.0) Calcium (8.4-10.2) mg/dL Magnesium (1.6-2.3) mg/dL Total Bilirubin (0.2-1.3) mg/dL AST (17-59) U/L ALT (0-50) U/L Alkaline Phosphatase (38-126) U/L Serum Total Protein (6.3-8.2) g/dL Albumin (3.5-5.0) g/dL Procalcitonin (0.030-0.080) ng/mL Urine Color (Yellow) Urine Appearance (Clear) Urine pH (4.6-8.0) Ur Specific Benton (1.005-1.030) Urine Protein (Negative) Urine Glucose (UA) (Negative) mg/dL Urine Ketones (Negative) Urine Blood (Negative) Urine Nitrite (Negative) Urine Bilirubin (Negative) Urine Urobilinogen (0.2) mg/dL Ur Leukocyte Esterase (Negative) U Hyaline Cast (Auto) (0-2) /LPF Urine Microscopic RBC (0-5) /HPF Urine Microscopic WBC (0-5) /HPF Ur Epithelial Cells (None Seen) /HPF Urine Bacteria (None Seen) /HPF Urine Culture Reflexed (NO) ABO Group Rh Factor Antibody Screen (NEGATIVE) - Radiology Impressions Radiology Exams & Impressions: Radiology Procedures Category Date Time Status LOWER EXTREMITY WO CONTRAST [CT] Stat Exams 06/05/25 10:57 Completed LOWER EXTREMITY WO CONTRAST [CT] Stat Exams 06/05/25 10:58 Completed Assessment/Plan (1) Diabetic foot ulcer Current Visit: Yes Status: Acute Qualifiers: Diabetic foot ulcer location: unspecified part of foot Diabetes mellitus type: other specified (including JUANCHO) Laterality: unspecified laterality Non-pressure ulcer stage: unspecified non-pressure ulcer stage Qualified Code(s): E13.621 - Other specified diabetes mellitus with foot ulcer; L97.509 - Non-pressure chronic ulcer of other part of unspecified foot with unspecified severity Assessment & Plan: -Rapid onset blistering involving all left toes with erythema to midfoot and additional ankle blister; right great toe blister medially. -CT bilateral LEs demonstrating subcutaneous edema; left with MTP joint effusion suggesting deeper involvement. -Elevated ESR and procalcitonin ; WBC WNL -vancomycin + Zosyn started in ED, continue -Podiatry consulted; surgical washout under consideration. -Strict [id number]-mbkegsc on the left, limited weight-bearing right as tolerated pending podiatry eval -obtain MRI when available and venous/arterial US -Monitor for compartment syndrome, necrotizing infection, or progression of erythema. -Wound, blood cultures pending -Stefan borders of erythema and monitor progression. -Pain control Code(s): E11.621 - TYPE 2 DIABETES MELLITUS WITH FOOT ULCER; L97.509 - NON- PRESSURE CHRONIC ULCER OTH PRT UNSP FOOT W UNSP SEVERITY (2) UTI (urinary tract infection) Current Visit: Yes Status: Acute Assessment & Plan: -UA suspicious for UTI, culture pending - will follow - continue vanc/zosyn as above Code(s): N39.0 - URINARY TRACT INFECTION, SITE NOT SPECIFIED (3) HLD (hyperlipidemia) Current Visit: Yes Status: Acute Assessment & Plan: -Per patient no longer on statin therapy Code(s): E78.5 - HYPERLIPIDEMIA, UNSPECIFIED (4) Normocytic anemia Current Visit: Yes Status: Acute Assessment & Plan: -Hgb stable at 12.8- add iron studies-trend Code(s): D64.9 - ANEMIA, UNSPECIFIED (5) Pseudohyponatremia Current Visit: Yes Status: Acute Assessment & Plan: -Sodium level 128 in the setting of hyperglycemia -Corrects toward normal as glucose treated. -Continue IV fluids -Treat underlying hyperglycemia as primary driver material handler. -Repeat BMP after glucose < 250 to reassess true sodium level. Code(s): R79.89 - OTHER SPECIFIED ABNORMAL FINDINGS OF BLOOD CHEMISTRY (6) Diabetes mellitus with hyperglycemia Current Visit: Yes Status: Acute Assessment & Plan: -ADA diet - On arrival glucose 728, improved to 378 with fluids. -No acidosis; normal AG, lactate, and CO2. -Contributing to pseudohyponatremia and increased skin-infection risk. -Continue IVF -Start basal-bolus insulin regimen with correction scale. -Last A1c 9.98 in December -Obtain A1c- counseled on good glycemic control for wound healing VTE: SCD for now due to surgical intervention PPI: Protonix Dispo: 2-3 days Code status: Full code Plan of care time spent > 45 mins Code(s): E11.65 - TYPE 2 DIABETES MELLITUS WITH HYPERGLYCEMIA Telemedicine Encounter - Telemedicine Encounter Telemedicine Encounter: "The entirety of this encounter was performed via Telemedicine" This visit was performed using real-time audio and video connection between my location and thepatients locationwith the assistance of a surrogateat the patients location. Written or verbal consent was obtained from the patient/guardian to perform this [facility]. Any patient questions regarding the telemedicine interaction were answered. <ALLEN WEBER - Last Filed: 06/06/25 08:47> History of Present Illness - Chief Complaint History of Present Illness: Mr.SOWDERS ARORA is a 55 year old male. - Physical Exam Vital Signs: Vital Signs - 24 hr Temp Pulse Resp BP BP Pulse Ox 06/06/25 07:00 97.8 F 75 18 85/50 97 06/06/25 03:00 98.1 F 78 18 100/58 95 06/05/25 23:00 97.3 F 71 18 107/67 98 06/05/25 19:00 97.3 F 78 20 116/70 98 06/05/25 15:54 97 F 70 16 124/79 95 06/05/25 14:57 97 F 70 17 124/79 95 06/05/25 14:39 98 06/05/25 14:00 113/65 98 06/05/25 13:54 97 06/05/25 13:40 95 06/05/25 13:33 96 06/05/25 13:01 117/86 95 06/05/25 12:01 82 14 96/61 95 06/05/25 11:31 83 27 H 111/63 96 06/05/25 11:01 98 06/05/25 11:00 94 H 14 128/82 95 06/05/25 10:48 97.1 F 88 132/74 97 Wound Assessment: Skin/Wound Assessment Wound/Incision Assessment Start: 06/05/25 16:30 Text: Status: Active Freq: Q6H Protocol: Document 06/06/25 02:00 MP (Rec: 06/06/25 02:09 MP [id number]) Wound/Incision Assessment Left Foot Wound Assessment Shift Assessment Primary Dressing mepilex Secondary Dressing Gauze Roll/Wrap Comment unable to assess due to dressing in place. Dressing C/ D/I Wound Photo Photo Taken No Results - Labs Lab/Micro Results: Lab Results-Last 24 Hours 06/05/25 06/05/25 06/05/25 Range/Units 10:51 11:00 11:00 WBC (4.23-9.07) x10^3/uL RBC (4.63-6.08) x10^6/uL Hgb (13.7-17.5) g/dL Hct (40.1-51.0) % MCV (79.0-92.2) fL MCH (25.7-32.2) pg MCHC (32.3-36.5) g/dL RDW (11.6-14.4) % Plt Count (163-337) x10^3/uL MPV (9.4-12.4) fL Gran % (34.0-67.9) % Immature Gran % (Auto) (0.001-0.429) % Nucleat RBC Rel Count (0.00-0.2) % Eos # (Auto) (0.04-0.54) x10^3/uL Immature Gran # (Auto) (0.001-0.031) x10^3u/L Absolute Lymphs (auto) (1.32-3.57) x10^3/uL Absolute Monos (auto) (0.30-0.82) x10^3/uL Absolute Nucleated RBC (0.00-0.012) x10^3u/L Lymphocytes % (21.8-53.1) % Monocytes % (5.3-12.2) % Eosinophils % (0.8-7.0) % Basophils % (0.2-1.2) % Absolute Granulocytes (1.78-5.38) x10^3/uL Basophils # (0.01-0.08) x10^3/uL ESR 75 H (0-15) mm/hr PT 10.6 (9.4-12.5) SECONDS INR 0.94 (0.8-3.0) APTT 25.8 (25.1-36.5) SECONDS Glucose 685 H* (70-110) Sodium (135-145) mmol/L Potassium (3.5-5.1) mmol/L Chloride (98-107) mmol/L Carbon Dioxide (22-30) mmol/L Anion Gap (5-15) MEQ/L BUN (9-20) mg/dL Creatinine (0.66-1.25) mg/dL Estimated GFR ML/MIN POC Glucometer (74 to 106) mg/dL Hemoglobin A1c (4.5-6.0) % Lactic Acid 1.8 (0.4-2.0) Calcium (8.4-10.2) mg/dL Magnesium (1.6-2.3) mg/dL Iron (49-181) ug/dL TIBC (261-497) ug/dL Iron Saturation (20-39) % Ferritin (17.9-464) ng/mL Total Bilirubin (0.2-1.3) mg/dL AST (17-59) U/L ALT (0-50) U/L Alkaline Phosphatase (38-126) U/L Serum Total Protein (6.3-8.2) g/dL Albumin (3.5-5.0) g/dL Prealbumin (17.6-36.0) mg/dL Vitamin B12 (239-931) pg/mL Folic Acid (2.76 - >20) ng/mL Procalcitonin (0.030-0.080) ng/mL Urine Color (Yellow) Urine Appearance (Clear) Urine pH (4.6-8.0) Ur Specific Benton (1.005-1.030) Urine Protein (Negative) Urine Glucose (UA) (Negative) mg/dL Urine Ketones (Negative) Urine Blood (Negative) Urine Nitrite (Negative) Urine Bilirubin (Negative) Urine Urobilinogen (0.2) mg/dL Ur Leukocyte Esterase (Negative) U Hyaline Cast (Auto) (0-2) /LPF Urine Microscopic RBC (0-5) /HPF Urine Microscopic WBC (0-5) /HPF Ur Epithelial Cells (None Seen) /HPF Urine Bacteria (None Seen) /HPF Urine Culture Reflexed (NO) Slides for Path Review ABO Group Rh Factor Antibody Screen (NEGATIVE) 06/05/25 06/05/25 06/05/25 Range/Units 11:26 11:29 11:29 WBC 7.0 (4.23-9.07) x10^3/uL RBC 4.61 L (4.63-6.08) x10^6/uL Hgb 12.8 L (13.7-17.5) g/dL Hct 40.9 (40.1-51.0) % MCV 88.7 (79.0-92.2) fL MCH 27.8 (25.7-32.2) pg MCHC 31.3 L (32.3-36.5) g/dL RDW 13.1 (11.6-14.4) % Plt Count 126 L (163-337) x10^3/uL MPV 11.1 (9.4-12.4) fL Gran % 72.6 H (34.0-67.9) % Immature Gran % (Auto) 0.6 H (0.001-0.429) % Nucleat RBC Rel Count 0.0 (0.00-0.2) % Eos # (Auto) 0.14 (0.04-0.54) x10^3/uL Immature Gran # (Auto) 0.04 H (0.001-0.031) x10^3u/L Absolute Lymphs (auto) 1.03 L (1.32-3.57) x10^3/uL Absolute Monos (auto) 0.63 (0.30-0.82) x10^3/uL Absolute Nucleated RBC 0.00 (0.00-0.012) x10^3u/L Lymphocytes % 14.8 L (21.8-53.1) % Monocytes % 9.1 (5.3-12.2) % Eosinophils % 2.0 (0.8-7.0) % Basophils % 0.9 (0.2-1.2) % Absolute Granulocytes 5.06 (1.78-5.38) x10^3/uL Basophils # 0.06 (0.01-0.08) x10^3/uL ESR (0-15) mm/hr PT (9.4-12.5) SECONDS INR (0.8-3.0) APTT (25.1-36.5) SECONDS Glucose 728 H* (70-110) Sodium 128 L (135-145) mmol/L Potassium 4.3 (3.5-5.1) mmol/L Chloride 94 L (98-107) mmol/L Carbon Dioxide 24 (22-30) mmol/L Anion Gap 14.2 (5-15) MEQ/L BUN 16 (9-20) mg/dL Creatinine 0.64 L (0.66-1.25) mg/dL Estimated GFR 111.8 ML/MIN POC Glucometer (74 to 106) mg/dL Hemoglobin A1c (4.5-6.0) % Lactic Acid (0.4-2.0) Calcium 8.8 (8.4-10.2) mg/dL Magnesium (1.6-2.3) mg/dL Iron (49-181) ug/dL TIBC (261-497) ug/dL Iron Saturation (20-39) % Ferritin (17.9-464) ng/mL Total Bilirubin 1.10 (0.2-1.3) mg/dL AST 24 (17-59) U/L ALT 24 (0-50) U/L Alkaline Phosphatase 166 H (38-126) U/L Serum Total Protein 7.8 (6.3-8.2) g/dL Albumin 3.9 (3.5-5.0) g/dL Prealbumin (17.6-36.0) mg/dL Vitamin B12 (239-931) pg/mL Folic Acid (2.76 - >20) ng/mL Procalcitonin (0.030-0.080) ng/mL Urine Color Yellow (Yellow) Urine Appearance Clear (Clear) Urine pH 6.0 (4.6-8.0) Ur Specific [place] >=1.030 A (1.005-1.030) Urine Protein Negative (Negative) Urine Glucose (UA) >=1000 A (Negative) mg/dL Urine Ketones Trace A (Negative) Urine Blood Negative (Negative) Urine Nitrite Negative (Negative) Urine Bilirubin Negative (Negative) Urine Urobilinogen 1.0 A (0.2) mg/dL Ur Leukocyte Esterase Trace A (Negative) U Hyaline Cast (Auto) NONE SEEN (0-2) /LPF Urine Microscopic RBC 0-2 (0-5) /HPF Urine Microscopic WBC 21-50 A (0-5) /HPF Ur Epithelial Cells None Seen (None Seen) /HPF Urine Bacteria Many A (None Seen) /HPF Urine Culture Reflexed YES (NO) Slides for Path Review YES ABO Group Rh Factor Antibody Screen (NEGATIVE) 06/05/25 06/05/25 06/05/25 Range/Units 11:29 11:29 11:29 WBC (4.23-9.07) x10^3/uL RBC (4.63-6.08) x10^6/uL Hgb (13.7-17.5) g/dL Hct (40.1-51.0) % MCV (79.0-92.2) fL MCH (25.7-32.2) pg MCHC (32.3-36.5) g/dL RDW (11.6-14.4) % Plt Count (163-337) x10^3/uL MPV (9.4-12.4) fL Gran % (34.0-67.9) % Immature Gran % (Auto) (0.001-0.429) % Nucleat RBC Rel Count (0.00-0.2) % Eos # (Auto) (0.04-0.54) x10^3/uL Immature Gran # (Auto) (0.001-0.031) x10^3u/L Absolute Lymphs (auto) (1.32-3.57) x10^3/uL Absolute Monos (auto) (0.30-0.82) x10^3/uL Absolute Nucleated RBC (0.00-0.012) x10^3u/L Lymphocytes % (21.8-53.1) % Monocytes % (5.3-12.2) % Eosinophils % (0.8-7.0) % Basophils % (0.2-1.2) % Absolute Granulocytes (1.78-5.38) x10^3/uL Basophils # (0.01-0.08) x10^3/uL ESR (0-15) mm/hr PT (9.4-12.5) SECONDS INR (0.8-3.0) APTT (25.1-36.5) SECONDS Glucose (70-110) Sodium (135-145) mmol/L Potassium (3.5-5.1) mmol/L Chloride (98-107) mmol/L Carbon Dioxide (22-30) mmol/L Anion Gap (5-15) MEQ/L BUN (9-20) mg/dL Creatinine (0.66-1.25) mg/dL Estimated GFR ML/MIN POC Glucometer (74 to 106) mg/dL Hemoglobin A1c (4.5-6.0) % Lactic Acid (0.4-2.0) Calcium (8.4-10.2) mg/dL Magnesium (1.6-2.3) mg/dL Iron (49-181) ug/dL TIBC (261-497) ug/dL Iron Saturation (20-39) % Ferritin 657 H (17.9-464) ng/mL Total Bilirubin (0.2-1.3) mg/dL AST (17-59) U/L ALT (0-50) U/L Alkaline Phosphatase (38-126) U/L Serum Total Protein (6.3-8.2) g/dL Albumin (3.5-5.0) g/dL Prealbumin (17.6-36.0) mg/dL Vitamin B12 778 (239-931) pg/mL Folic Acid 9.25 (2.76 - >20) ng/mL Procalcitonin 0.183 H (0.030-0.080) ng/mL Urine Color (Yellow) Urine Appearance (Clear) Urine pH (4.6-8.0) Ur Specific Benton (1.005-1.030) Urine Protein (Negative) Urine Glucose (UA) (Negative) mg/dL Urine Ketones (Negative) Urine Blood (Negative) Urine Nitrite (Negative) Urine Bilirubin (Negative) Urine Urobilinogen (0.2) mg/dL Ur Leukocyte Esterase (Negative) U Hyaline Cast (Auto) (0-2) /LPF Urine Microscopic RBC (0-5) /HPF Urine Microscopic WBC (0-5) /HPF Ur Epithelial Cells (None Seen) /HPF Urine Bacteria (None Seen) /HPF Urine Culture Reflexed (NO) Slides for Path Review ABO Group A Rh Factor NEGATIVE Antibody Screen NEGATIVE (NEGATIVE) 06/05/25 06/05/25 06/05/25 Range/Units 11:29 11:29 12:24 WBC (4.23-9.07) x10^3/uL RBC (4.63-6.08) x10^6/uL Hgb (13.7-17.5) g/dL Hct (40.1-51.0) % MCV (79.0-92.2) fL MCH (25.7-32.2) pg MCHC (32.3-36.5) g/dL RDW (11.6-14.4) % Plt Count (163-337) x10^3/uL MPV (9.4-12.4) fL Gran % (34.0-67.9) % Immature Gran % (Auto) (0.001-0.429) % Nucleat RBC Rel Count (0.00-0.2) % Eos # (Auto) (0.04-0.54) x10^3/uL Immature Gran # (Auto) (0.001-0.031) x10^3u/L Absolute Lymphs (auto) (1.32-3.57) x10^3/uL Absolute Monos (auto) (0.30-0.82) x10^3/uL Absolute Nucleated RBC (0.00-0.012) x10^3u/L Lymphocytes % (21.8-53.1) % Monocytes % (5.3-12.2) % Eosinophils % (0.8-7.0) % Basophils % (0.2-1.2) % Absolute Granulocytes (1.78-5.38) x10^3/uL Basophils # (0.01-0.08) x10^3/uL ESR (0-15) mm/hr PT (9.4-12.5) SECONDS INR (0.8-3.0) APTT (25.1-36.5) SECONDS Glucose (70-110) Sodium (135-145) mmol/L Potassium (3.5-5.1) mmol/L Chloride (98-107) mmol/L Carbon Dioxide (22-30) mmol/L Anion Gap (5-15) MEQ/L BUN (9-20) mg/dL Creatinine (0.66-1.25) mg/dL Estimated GFR ML/MIN POC Glucometer (74 to 106) mg/dL Hemoglobin A1c 12.39 H (4.5-6.0) % Lactic Acid (0.4-2.0) Calcium (8.4-10.2) mg/dL Magnesium 2.0 (1.6-2.3) mg/dL Iron 56 (49-181) ug/dL TIBC 212 L (261-497) ug/dL Iron Saturation 26 (20-39) % Ferritin (17.9-464) ng/mL Total Bilirubin (0.2-1.3) mg/dL AST (17-59) U/L ALT (0-50) U/L Alkaline Phosphatase (38-126) U/L Serum Total Protein (6.3-8.2) g/dL Albumin (3.5-5.0) g/dL Prealbumin (17.6-36.0) mg/dL Vitamin B12 (239-931) pg/mL Folic Acid (2.76 - >20) ng/mL Procalcitonin (0.030-0.080) ng/mL Urine Color (Yellow) Urine Appearance (Clear) Urine pH (4.6-8.0) Ur Specific Benton (1.005-1.030) Urine Protein (Negative) Urine Glucose (UA) (Negative) mg/dL Urine Ketones (Negative) Urine Blood (Negative) Urine Nitrite (Negative) Urine Bilirubin (Negative) Urine Urobilinogen (0.2) mg/dL Ur Leukocyte Esterase (Negative) U Hyaline Cast (Auto) (0-2) /LPF Urine Microscopic RBC (0-5) /HPF Urine Microscopic WBC (0-5) /HPF Ur Epithelial Cells (None Seen) /HPF Urine Bacteria (None Seen) /HPF Urine Culture Reflexed (NO) Slides for Path Review ABO Group Rh Factor Antibody Screen (NEGATIVE) 06/05/25 06/05/25 06/05/25 Range/Units 13:54 16:30 16:50 WBC (4.23-9.07) x10^3/uL RBC (4.63-6.08) x10^6/uL Hgb (13.7-17.5) g/dL Hct (40.1-51.0) % MCV (79.0-92.2) fL MCH (25.7-32.2) pg MCHC (32.3-36.5) g/dL RDW (11.6-14.4) % Plt Count (163-337) x10^3/uL MPV (9.4-12.4) fL Gran % (34.0-67.9) % Immature Gran % (Auto) (0.001-0.429) % Nucleat RBC Rel Count (0.00-0.2) % Eos # (Auto) (0.04-0.54) x10^3/uL Immature Gran # (Auto) (0.001-0.031) x10^3u/L Absolute Lymphs (auto) (1.32-3.57) x10^3/uL Absolute Monos (auto) (0.30-0.82) x10^3/uL Absolute Nucleated RBC (0.00-0.012) x10^3u/L Lymphocytes % (21.8-53.1) % Monocytes % (5.3-12.2) % Eosinophils % (0.8-7.0) % Basophils % (0.2-1.2) % Absolute Granulocytes (1.78-5.38) x10^3/uL Basophils # (0.01-0.08) x10^3/uL ESR (0-15) mm/hr PT (9.4-12.5) SECONDS INR (0.8-3.0) APTT (25.1-36.5) SECONDS Glucose (70-110) Sodium (135-145) mmol/L Potassium (3.5-5.1) mmol/L Chloride (98-107) mmol/L Carbon Dioxide (22-30) mmol/L Anion Gap (5-15) MEQ/L BUN (9-20) mg/dL Creatinine (0.66-1.25) mg/dL Estimated GFR ML/MIN POC Glucometer 378 H 348 H (74 to 106) mg/dL Hemoglobin A1c (4.5-6.0) % Lactic Acid (0.4-2.0) Calcium (8.4-10.2) mg/dL Magnesium (1.6-2.3) mg/dL Iron (49-181) ug/dL TIBC (261-497) ug/dL Iron Saturation (20-39) % Ferritin (17.9-464) ng/mL Total Bilirubin (0.2-1.3) mg/dL AST (17-59) U/L ALT (0-50) U/L Alkaline Phosphatase (38-126) U/L Serum Total Protein (6.3-8.2) g/dL Albumin (3.5-5.0) g/dL Prealbumin 10.30 L (17.6-36.0) mg/dL Vitamin B12 (239-931) pg/mL Folic Acid (2.76 - >20) ng/mL Procalcitonin (0.030-0.080) ng/mL Urine Color (Yellow) Urine Appearance (Clear) Urine pH (4.6-8.0) Ur Specific Benton (1.005-1.030) Urine Protein (Negative) Urine Glucose (UA) (Negative) mg/dL Urine Ketones (Negative) Urine Blood (Negative) Urine Nitrite (Negative) Urine Bilirubin (Negative) Urine Urobilinogen (0.2) mg/dL Ur Leukocyte Esterase (Negative) U Hyaline Cast (Auto) (0-2) /LPF Urine Microscopic RBC (0-5) /HPF Urine Microscopic WBC (0-5) /HPF Ur Epithelial Cells (None Seen) /HPF Urine Bacteria (None Seen) /HPF Urine Culture Reflexed (NO) Slides for Path Review ABO Group Rh Factor Antibody Screen (NEGATIVE) 06/05/25 06/06/25 06/06/25 Range/Units 21:20 05:25 05:25 WBC 6.9 (4.23-9.07) x10^3/uL RBC 4.02 L (4.63-6.08) x10^6/uL Hgb 11.5 L (13.7-17.5) g/dL Hct 34.6 L (40.1-51.0) % MCV 86.1 (79.0-92.2) fL MCH 28.6 (25.7-32.2) pg MCHC 33.2 (32.3-36.5) g/dL RDW 13.0 (11.6-14.4) % Plt Count 146 L (163-337) x10^3/uL MPV 10.5 (9.4-12.4) fL Gran % 64.5 (34.0-67.9) % Immature Gran % (Auto) 0.6 H (0.001-0.429) % Nucleat RBC Rel Count 0.0 (0.00-0.2) % Eos # (Auto) 0.26 (0.04-0.54) x10^3/uL Immature Gran # (Auto) 0.04 H (0.001-0.031) x10^3u/L Absolute Lymphs (auto) 1.51 (1.32-3.57) x10^3/uL Absolute Monos (auto) 0.57 (0.30-0.82) x10^3/uL Absolute Nucleated RBC 0.00 (0.00-0.012) x10^3u/L Lymphocytes % 21.9 (21.8-53.1) % Monocytes % 8.3 (5.3-12.2) % Eosinophils % 3.8 (0.8-7.0) % Basophils % 0.9 (0.2-1.2) % Absolute Granulocytes 4.46 (1.78-5.38) x10^3/uL Basophils # 0.06 (0.01-0.08) x10^3/uL ESR (0-15) mm/hr PT (9.4-12.5) SECONDS INR (0.8-3.0) APTT (25.1-36.5) SECONDS Glucose 240 H (70-110) Sodium 133 L (135-145) mmol/L Potassium 3.7 (3.5-5.1) mmol/L Chloride 103 (98-107) mmol/L Carbon Dioxide 25 (22-30) mmol/L Anion Gap 8.0 (5-15) MEQ/L BUN 13 (9-20) mg/dL Creatinine 0.63 L (0.66-1.25) mg/dL Estimated GFR 112.3 ML/MIN POC Glucometer 197 H (74 to 106) mg/dL Hemoglobin A1c (4.5-6.0) % Lactic Acid (0.4-2.0) Calcium 8.0 L (8.4-10.2) mg/dL Magnesium (1.6-2.3) mg/dL Iron (49-181) ug/dL TIBC (261-497) ug/dL Iron Saturation (20-39) % Ferritin (17.9-464) ng/mL Total Bilirubin 0.50 (0.2-1.3) mg/dL AST 23 (17-59) U/L ALT 17 (0-50) U/L Alkaline Phosphatase 116 (38-126) U/L Serum Total Protein 6.6 (6.3-8.2) g/dL Albumin 3.1 L (3.5-5.0) g/dL Prealbumin (17.6-36.0) mg/dL Vitamin B12 (239-931) pg/mL Folic Acid (2.76 - >20) ng/mL Procalcitonin (0.030-0.080) ng/mL Urine Color (Yellow) Urine Appearance (Clear) Urine pH (4.6-8.0) Ur Specific B[place] (1.005-1.030) Urine Protein (Negative) Urine Glucose (UA) (Negative) mg/dL Urine Ketones (Negative) Urine Blood (Negative) Urine Nitrite (Negative) Urine Bilirubin (Negative) Urine Urobilinogen (0.2) mg/dL Ur Leukocyte Esterase (Negative) U Hyaline Cast (Auto) (0-2) /LPF Urine Microscopic RBC (0-5) /HPF Urine Microscopic WBC (0-5) /HPF Ur Epithelial Cells (None Seen) /HPF Urine Bacteria (None Seen) /HPF Urine Culture Reflexed (NO) Slides for Path Review ABO Group Rh Factor Antibody Screen (NEGATIVE) 06/06/25 Range/Units 07:04 WBC (4.23-9.07) x10^3/uL RBC (4.63-6.08) x10^6/uL Hgb (13.7-17.5) g/dL Hct (40.1-51.0) % MCV (79.0-92.2) fL MCH (25.7-32.2) pg MCHC (32.3-36.5) g/dL RDW (11.6-14.4) % Plt Count (163-337) x10^3/uL MPV (9.4-12.4) fL Gran % (34.0-67.9) % Immature Gran % (Auto) (0.001-0.429) % Nucleat RBC Rel Count (0.00-0.2) % Eos # (Auto) (0.04-0.54) x10^3/uL Immature Gran # (Auto) (0.001-0.031) x10^3u/L Absolute Lymphs (auto) (1.32-3.57) x10^3/uL Absolute Monos (auto) (0.30-0.82) x10^3/uL Absolute Nucleated RBC (0.00-0.012) x10^3u/L Lymphocytes % (21.8-53.1) % Monocytes % (5.3-12.2) % Eosinophils % (0.8-7.0) % Basophils % (0.2-1.2) % Absolute Granulocytes (1.78-5.38) x10^3/uL Basophils # (0.01-0.08) x10^3/uL ESR (0-15) mm/hr PT (9.4-12.5) SECONDS INR (0.8-3.0) APTT (25.1-36.5) SECONDS Glucose (70-110) Sodium (135-145) mmol/L Potassium (3.5-5.1) mmol/L Chloride (98-107) mmol/L Carbon Dioxide (22-30) mmol/L Anion Gap (5-15) MEQ/L BUN (9-20) mg/dL Creatinine (0.66-1.25) mg/dL Estimated GFR ML/MIN POC Glucometer 270 H (74 to 106) mg/dL Hemoglobin A1c (4.5-6.0) % Lactic Acid (0.4-2.0) Calcium (8.4-10.2) mg/dL Magnesium (1.6-2.3) mg/dL Iron (49-181) ug/dL TIBC (261-497) ug/dL Iron Saturation (20-39) % Ferritin (17.9-464) ng/mL Total Bilirubin (0.2-1.3) mg/dL AST (17-59) U/L ALT (0-50) U/L Alkaline Phosphatase (38-126) U/L Serum Total Protein (6.3-8.2) g/dL Albumin (3.5-5.0) g/dL Prealbumin (17.6-36.0) mg/dL Vitamin B12 (239-931) pg/mL Folic Acid (2.76 - >20) ng/mL Procalcitonin (0.030-0.080) ng/mL Urine Color (Yellow) Urine Appearance (Clear) Urine pH (4.6-8.0) Ur Specific [place] (1.005-1.030) Urine Protein (Negative) Urine Glucose (UA) (Negative) mg/dL Urine Ketones (Negative) Urine Blood (Negative) Urine Nitrite (Negative) Urine Bilirubin (Negative) Urine Urobilinogen (0.2) mg/dL Ur Leukocyte Esterase (Negative) U Hyaline Cast (Auto) (0-2) /LPF Urine Microscopic RBC (0-5) /HPF Urine Microscopic WBC (0-5) /HPF Ur Epithelial Cells (None Seen) /HPF Urine Bacteria (None Seen) /HPF Urine Culture Reflexed (NO) Slides for Path Review ABO Group Rh Factor Antibody Screen (NEGATIVE) Accuchecks Date 06/06/25 Date 06/05/25 Time 17:20 - Radiology Impressions Radiology Exams & Impressions: Radiology Procedures Category Date Time Status LOWER EXTREMITY WO CONTRAST [CT] Stat Exams 06/05/25 10:57 Completed LOWER EXTREMITY WO CONTRAST [CT] Stat Exams 06/05/25 10:58 Completed Telemedicine Encounter - Telemedicine Encounter Telemedicine Encounter: "The entirety of this encounter was performed via Telemedicine" This visit was performed using real-time audio and video connection between my location and thepatients locationwith the assistance of a surrogateat the patients location. Written or verbal consent was obtained from the patient/guardian to perform this visit using[employer] technology. Any patient questions regarding the telemedicine interaction were answered. DENAE Encounter - EDNAE Encounter Attestation DENAE Encounter Attestation: "IhManuel ARORA,[address] on 06/05/2025 andhavediscussed pertinent aspects of their care with Didi Leslie agree with the history, physical exam (any modifications based on my personal exam will be noted below), assessment, and plan as outlined in original note. Please see immediately below for my summary of findings and additional assessment and plan along with any meaningful corrections/explanations to the Subjective/Objec tive portions of the DENAE note will be noted." My portion of the encounter took place via telemedicine. -Patient with history of poorly controlled diabetes on insulin, presenting with acute onset bilateral lower extremity blisters. He denies any triggers such as trauma, topical agents etc. 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 Appreciate podiatry's assistance in management. Continue broad spectrum antibiotics until cultures result and osteomyelitis is ruled out by MRI.
[2025-06-05] MEDS ORDERED: TYLENOL 325 MG PO PRN (15:58)
[2025-06-05] MEDS ORDERED: NORCO 5/325 MG PO PRN (15:58)
[2025-06-05] MEDS ORDERED: Zofran 4 MG/2 ML VIAL IV PRN (15:58)
[2025-06-05] MEDS ORDERED: Hydromorphone 1 mg/ml Injection IV PRN (15:58)
[2025-06-05] MEDS ORDERED: PHARMACY DOSING REQUIRED: VANCOMYCIN IV SCH (16:00)
[2025-06-05 16:38] LABS: Iron 56 ug/dL (49-181); TIBC 212 ug/dL (261-497)
[2025-06-05] MEDS: Lantus Insulin SQ ONE (16:56)
[2025-06-05] MEDS: HUMALOG SQ PRN (17:16)
[2025-06-05 17:26] LABS: Slide Review 1 YES
[2025-06-05 17:36] LABS: Ferritin 657.0 ng/mL (17.9-464)
--- NOTE | 2025-06-05 20:38 | PCM.CONS ---
Podiatry HPI - Consult Date of Consultation Date: 06/05/25 Reason for Consult: diabetic foot ulcers to bilateral feet. Acute. Consulting Provider: JEANE ANDRES DPM - [facility] History of Present Illness: Mr. Shahzad Jackson, 55-year-old male with insulin-dependent type 2 diabetes and hyperlipidemia, presented with sudden-onset, rapidly progressive blistering and erythema of both feet noted on the morning of 06/02/25. The left foot shows extensive blistering across all toes with erythema tracking to the midfoot and an additional blister at the left ankle. A smaller blister is present on the medial right hallux. No trauma, new footwear, chemical exposure, or mora. No fever, chills, or systemic complaints. Pain is sharp, constant, mild at rest, but severe with weight-bearing. No new numbness or sensory loss. Exam shows int act pulses, normal strength, preserved sensation, and more pronounced erythema on the left. Labs notable for severe hyperglycemia (728 ? 378 after fluids), pseudohyponatremia (Na 128), ESR 75, procalcitonin 0.183, alk phos 166, and glucosuria with WBCs and bacteria. CT of both lower extremities shows degenerative changes, soft-tissue edema, left MTP joint effusion, and concern for deep soft-tissue infection. MRI recommended but unavailable until after the weekend. Medications & Allergies Home Medications: Home Medication List Insulin Glargine [Lantus Insulin] 25 unit SQ BID 06/05/25 [History Confirmed 06/05/25] Insulin Lispro [Humalog] 0 unit SQ .SLIDING SCALE 06/05/25 [History Confirmed 06/05/25] Allergies/Adverse Reactions: Allergies Allergy/AdvReac Type Severity Reaction Status Date / Time No Known Drug Allergies Allergy Verified 06/05/25 10:57 - Past Medical History Past Medical History: No Neurological History: No Pertinent History ENT History: No Pertinent History Cardiac History: High Cholesterol Respiratory History: No Pertinent History Endocrine Medical History: Diabetes Type II Musculoskelatal History: No Pertinent History GI Medical History: No Pertinent History History: Other Pyscho-Social History: No Pertinent History Male Reproductive Disorders: No Pertinent History Comment: hx of kidney stones - Past Surgical History Past Surgical History: Yes Neuro Surgical History: No Pertinent History Cardiac History: No Pertinent History Respiratory Surgery: No Pertinent History GI Surgical History: No Pertinent History Genitourinary Surgical Hx: No Pertinent History Musculskeletal Surgical Hx: Orthopedic Surgery Male Surgical History: No Pertinent History Other Surgical History: LEFT ELBOW SURGERYx3. neck surgery Significant Family History: heart disease, diabetes - Social History Smoking Status: Never smoker Exposure to second hand smoke: Yes Alcohol: Rarely Drug Use: none - Social Determinants of Health Will the patient participate in the screening: Yes Do you worry about a steady place to live?: No Do you have any problems with any of the following?: No known problems In the past 12 months,have you had to go without utilities?: No Have you or anyone in your house had to go without enough: No Transportation Issues: No Has anyone in your support network made you feel unsafe?: No Does the patient want assistance with any of the above?: No Physical Exam - Narrative Narrative Physical Exam: Podiatry Physical Exam Results - Labs Lab/Micro Results: Lab Results-Last 24 Hours 06/05/25 06/05/25 06/05/25 Range/Units 10:51 11:00 11:00 WBC (4.23-9.07) x10^3/uL RBC (4.63-6.08) x10^6/uL Hgb (13.7-17.5) g/dL Hct (40.1-51.0) % MCV (79.0-92.2) fL MCH (25.7-32.2) pg MCHC (32.3-36.5) g/dL RDW (11.6-14.4) % Plt Count (163-337) x10^3/uL MPV (9.4-12.4) fL Gran % (34.0-67.9) % Immature Gran % (Auto) (0.001-0.429) % Nucleat RBC Rel Count (0.00-0.2) % Eos # (Auto) (0.04-0.54) x10^3/uL Immature Gran # (Auto) (0.001-0.031) x10^3u/L Absolute Lymphs (auto) (1.32-3.57) x10^3/uL Absolute Monos (auto) (0.30-0.82) x10^3/uL Absolute Nucleated RBC (0.00-0.012) x10^3u/L Lymphocytes % (21.8-53.1) % Monocytes % (5.3-12.2) % Eosinophils % (0.8-7.0) % Basophils % (0.2-1.2) % Absolute Granulocytes (1.78-5.38) x10^3/uL Basophils # (0.01-0.08) x10^3/uL ESR 75 H (0-15) mm/hr PT 10.6 (9.4-12.5) SECONDS INR 0.94 (0.8-3.0) APTT 25.8 (25.1-36.5) SECONDS Glucose 685 H* (70-110) Sodium (135-145) mmol/L Potassium (3.5-5.1) mmol/L Chloride (98-107) mmol/L Carbon Dioxide (22-30) mmol/L Anion Gap (5-15) MEQ/L BUN (9-20) mg/dL Creatinine (0.66-1.25) mg/dL Estimated GFR ML/MIN POC Glucometer (74 to 106) mg/dL Hemoglobin A1c (4.5-6.0) % Lactic Acid 1.8 (0.4-2.0) Calcium (8.4-10.2) mg/dL Magnesium (1.6-2.3) mg/dL Iron (49-181) ug/dL TIBC (261-497) ug/dL Iron Saturation (20-39) % Ferritin (17.9-464) ng/mL Total Bilirubin (0.2-1.3) mg/dL AST (17-59) U/L ALT (0-50) U/L Alkaline Phosphatase (38-126) U/L Serum Total Protein (6.3-8.2) g/dL Albumin (3.5-5.0) g/dL Prealbumin (17.6-36.0) mg/dL Vitamin B12 (239-931) pg/mL Folic Acid (2.76 - >20) ng/mL Procalcitonin (0.030-0.080) ng/mL Urine Color (Yellow) Urine Appearance (Clear) Urine pH (4.6-8.0) Ur Specific [place] (1.005-1.030) Urine Protein (Negative) Urine Glucose (UA) (Negative) mg/dL Urine Ketones (Negative) Urine Blood (Negative) Urine Nitrite (Negative) Urine Bilirubin (Negative) Urine Urobilinogen (0.2) mg/dL Ur Leukocyte Esterase (Negative) U Hyaline Cast (Auto) (0-2) /LPF Urine Microscopic RBC (0-5) /HPF Urine Microscopic WBC (0-5) /HPF Ur Epithelial Cells (None Seen) /HPF Urine Bacteria (None Seen) /HPF Urine Culture Reflexed (NO) Slides for Path Review ABO Group Rh Factor Antibody Screen (NEGATIVE) 06/05/25 06/05/25 06/05/25 Range/Units 11:26 11:29 11:29 WBC 7.0 (4.23-9.07) x10^3/uL RBC 4.61 L (4.63-6.08) x10^6/uL Hgb 12.8 L (13.7-17.5) g/dL Hct 40.9 (40.1-51.0) % MCV 88.7 (79.0-92.2) fL MCH 27.8 (25.7-32.2) pg MCHC 31.3 L (32.3-36.5) g/dL RDW 13.1 (11.6-14.4) % Plt Count 126 L (163-337) x10^3/uL MPV 11.1 (9.4-12.4) fL Gran % 72.6 H (34.0-67.9) % Immature Gran % (Auto) 0.6 H (0.001-0.429) % Nucleat RBC Rel Count 0.0 (0.00-0.2) % Eos # (Auto) 0.14 (0.04-0.54) x10^3/uL Immature Gran # (Auto) 0.04 H (0.001-0.031) x10^3u/L Absolute Lymphs (auto) 1.03 L (1.32-3.57) x10^3/uL Absolute Monos (auto) 0.63 (0.30-0.82) x10^3/uL Absolute Nucleated RBC 0.00 (0.00-0.012) x10^3u/L Lymphocytes % 14.8 L (21.8-53.1) % Monocytes % 9.1 (5.3-12.2) % Eosinophils % 2.0 (0.8-7.0) % Basophils % 0.9 (0.2-1.2) % Absolute Granulocytes 5.06 (1.78-5.38) x10^3/uL Basophils # 0.06 (0.01-0.08) x10^3/uL ESR (0-15) mm/hr PT (9.4-12.5) SECONDS INR (0.8-3.0) APTT (25.1-36.5) SECONDS Glucose 728 H* (70-110) Sodium 128 L (135-145) mmol/L Potassium 4.3 (3.5-5.1) mmol/L Chloride 94 L (98-107) mmol/L Carbon Dioxide 24 (22-30) mmol/L Anion Gap 14.2 (5-15) MEQ/L BUN 16 (9-20) mg/dL Creatinine 0.64 L (0.66-1.25) mg/dL Estimated GFR 111.8 ML/MIN POC Glucometer (74 to 106) mg/dL Hemoglobin A1c (4.5-6.0) % Lactic Acid (0.4-2.0) Calcium 8.8 (8.4-10.2) mg/dL Magnesium (1.6-2.3) mg/dL Iron (49-181) ug/dL TIBC (261-497) ug/dL Iron Saturation (20-39) % Ferritin (17.9-464) ng/mL Total Bilirubin 1.10 (0.2-1.3) mg/dL AST 24 (17-59) U/L ALT 24 (0-50) U/L Alkaline Phosphatase 166 H (38-126) U/L Serum Total Protein 7.8 (6.3-8.2) g/dL Albumin 3.9 (3.5-5.0) g/dL Prealbumin (17.6-36.0) mg/dL Vitamin B12 (239-931) pg/mL Folic Acid (2.76 - >20) ng/mL Procalcitonin (0.030-0.080) ng/mL Urine Color Yellow (Yellow) Urine Appearance Clear (Clear) Urine pH 6.0 (4.6-8.0) Ur Specific [place] >=1.030 A (1.005-1.030) Urine Protein Negative (Negative) Urine Glucose (UA) >=1000 A (Negative) mg/dL Urine Ketones Trace A (Negative) Urine Blood Negative (Negative) Urine Nitrite Negative (Negative) Urine Bilirubin Negative (Negative) Urine Urobilinogen 1.0 A (0.2) mg/dL Ur Leukocyte Esterase Trace A (Negative) U Hyaline Cast (Auto) NONE SEEN (0-2) /LPF Urine Microscopic RBC 0-2 (0-5) /HPF Urine Microscopic WBC 21-50 A (0-5) /HPF Ur Epithelial Cells None Seen (None Seen) /HPF Urine Bacteria Many A (None Seen) /HPF Urine Culture Reflexed YES (NO) Slides for Path Review YES ABO Group Rh Factor Antibody Screen (NEGATIVE) 06/05/25 06/05/25 06/05/25 Range/Units 11:29 11:29 11:29 WBC (4.23-9.07) x10^3/uL RBC (4.63-6.08) x10^6/uL Hgb (13.7-17.5) g/dL Hct (40.1-51.0) % MCV (79.0-92.2) fL MCH (25.7-32.2) pg MCHC (32.3-36.5) g/dL RDW (11.6-14.4) % Plt Count (163-337) x10^3/uL MPV (9.4-12.4) fL Gran % (34.0-67.9) % Immature Gran % (Auto) (0.001-0.429) % Nucleat RBC Rel Count (0.00-0.2) % Eos # (Auto) (0.04-0.54) x10^3/uL Immature Gran # (Auto) (0.001-0.031) x10^3u/L Absolute Lymphs (auto) (1.32-3.57) x10^3/uL Absolute Monos (auto) (0.30-0.82) x10^3/uL Absolute Nucleated RBC (0.00-0.012) x10^3u/L Lymphocytes % (21.8-53.1) % Monocytes % (5.3-12.2) % Eosinophils % (0.8-7.0) % Basophils % (0.2-1.2) % Absolute Granulocytes (1.78-5.38) x10^3/uL Basophils # (0.01-0.08) x10^3/uL ESR (0-15) mm/hr PT (9.4-12.5) SECONDS INR (0.8-3.0) APTT (25.1-36.5) SECONDS Glucose (70-110) Sodium (135-145) mmol/L Potassium (3.5-5.1) mmol/L Chloride (98-107) mmol/L Carbon Dioxide (22-30) mmol/L Anion Gap (5-15) MEQ/L BUN (9-20) mg/dL Creatinine (0.66-1.25) mg/dL Estimated GFR ML/MIN POC Glucometer (74 to 106) mg/dL Hemoglobin A1c (4.5-6.0) % Lactic Acid (0.4-2.0) Calcium (8.4-10.2) mg/dL Magnesium (1.6-2.3) mg/dL Iron (49-181) ug/dL TIBC (261-497) ug/dL Iron Saturation (20-39) % Ferritin 657 H (17.9-464) ng/mL Total Bilirubin (0.2-1.3) mg/dL AST (17-59) U/L ALT (0-50) U/L Alkaline Phosphatase (38-126) U/L Serum Total Protein (6.3-8.2) g/dL Albumin (3.5-5.0) g/dL Prealbumin (17.6-36.0) mg/dL Vitamin B12 778 (239-931) pg/mL Folic Acid 9.25 (2.76 - >20) ng/mL Procalcitonin 0.183 H (0.030-0.080) ng/mL Urine Color (Yellow) Urine Appearance (Clear) Urine pH (4.6-8.0) Ur Specific [place] (1.005-1.030) Urine Protein (Negative) Urine Glucose (UA) (Negative) mg/dL Urine Ketones (Negative) Urine Blood (Negative) Urine Nitrite (Negative) Urine Bilirubin (Negative) Urine Urobilinogen (0.2) mg/dL Ur Leukocyte Esterase (Negative) U Hyaline Cast (Auto) (0-2) /LPF Urine Microscopic RBC (0-5) /HPF Urine Microscopic WBC (0-5) /HPF Ur Epithelial Cells (None Seen) /HPF Urine Bacteria (None Seen) /HPF Urine Culture Reflexed (NO) Slides for Path Review ABO Group A Rh Factor NEGATIVE Antibody Screen NEGATIVE (NEGATIVE) 06/05/25 06/05/25 06/05/25 Range/Units 11:29 11:29 12:24 WBC (4.23-9.07) x10^3/uL RBC (4.63-6.08) x10^6/uL Hgb (13.7-17.5) g/dL Hct (40.1-51.0) % MCV (79.0-92.2) fL MCH (25.7-32.2) pg MCHC (32.3-36.5) g/dL RDW (11.6-14.4) % Plt Count (163-337) x10^3/uL MPV (9.4-12.4) fL Gran % (34.0-67.9) % Immature Gran % (Auto) (0.001-0.429) % Nucleat RBC Rel Count (0.00-0.2) % Eos # (Auto) (0.04-0.54) x10^3/uL Immature Gran # (Auto) (0.001-0.031) x10^3u/L Absolute Lymphs (auto) (1.32-3.57) x10^3/uL Absolute Monos (auto) (0.30-0.82) x10^3/uL Absolute Nucleated RBC (0.00-0.012) x10^3u/L Lymphocytes % (21.8-53.1) % Monocytes % (5.3-12.2) % Eosinophils % (0.8-7.0) % Basophils % (0.2-1.2) % Absolute Granulocytes (1.78-5.38) x10^3/uL Basophils # (0.01-0.08) x10^3/uL ESR (0-15) mm/hr PT (9.4-12.5) SECONDS INR (0.8-3.0) APTT (25.1-36.5) SECONDS Glucose (70-110) Sodium (135-145) mmol/L Potassium (3.5-5.1) mmol/L Chloride (98-107) mmol/L Carbon Dioxide (22-30) mmol/L Anion Gap (5-15) MEQ/L BUN (9-20) mg/dL Creatinine (0.66-1.25) mg/dL Estimated GFR ML/MIN POC Glucometer (74 to 106) mg/dL Hemoglobin A1c 12.39 H (4.5-6.0) % Lactic Acid (0.4-2.0) Calcium (8.4-10.2) mg/dL Magnesium 2.0 (1.6-2.3) mg/dL Iron 56 (49-181) ug/dL TIBC 212 L (261-497) ug/dL Iron Saturation 26 (20-39) % Ferritin (17.9-464) ng/mL Total Bilirubin (0.2-1.3) mg/dL AST (17-59) U/L ALT (0-50) U/L Alkaline Phosphatase (38-126) U/L Serum Total Protein (6.3-8.2) g/dL Albumin (3.5-5.0) g/dL Prealbumin (17.6-36.0) mg/dL Vitamin B12 (239-931) pg/mL Folic Acid (2.76 - >20) ng/mL Procalcitonin (0.030-0.080) ng/mL Urine Color (Yellow) Urine Appearance (Clear) Urine pH (4.6-8.0) Ur Specific [place] (1.005-1.030) Urine Protein (Negative) Urine Glucose (UA) (Negative) mg/dL Urine Ketones (Negative) Urine Blood (Negative) Urine Nitrite (Negative) Urine Bilirubin (Negative) Urine Urobilinogen (0.2) mg/dL Ur Leukocyte Esterase (Negative) U Hyaline Cast (Auto) (0-2) /LPF Urine Microscopic RBC (0-5) /HPF Urine Microscopic WBC (0-5) /HPF Ur Epithelial Cells (None Seen) /HPF Urine Bacteria (None Seen) /HPF Urine Culture Reflexed (NO) Slides for Path Review ABO Group Rh Factor Antibody Screen (NEGATIVE) 06/05/25 06/05/25 06/05/25 Range/Units 13:54 16:30 16:50 WBC (4.23-9.07) x10^3/uL RBC (4.63-6.08) x10^6/uL Hgb (13.7-17.5) g/dL Hct (40.1-51.0) % MCV (79.0-92.2) fL MCH (25.7-32.2) pg MCHC (32.3-36.5) g/dL RDW (11.6-14.4) % Plt Count (163-337) x10^3/uL MPV (9.4-12.4) fL Gran % (34.0-67.9) % Immature Gran % (Auto) (0.001-0.429) % Nucleat RBC Rel Count (0.00-0.2) % Eos # (Auto) (0.04-0.54) x10^3/uL Immature Gran # (Auto) (0.001-0.031) x10^3u/L Absolute Lymphs (auto) (1.32-3.57) x10^3/uL Absolute Monos (auto) (0.30-0.82) x10^3/uL Absolute Nucleated RBC (0.00-0.012) x10^3u/L Lymphocytes % (21.8-53.1) % Monocytes % (5.3-12.2) % Eosinophils % (0.8-7.0) % Basophils % (0.2-1.2) % Absolute Granulocytes (1.78-5.38) x10^3/uL Basophils # (0.01-0.08) x10^3/uL ESR (0-15) mm/hr PT (9.4-12.5) SECONDS INR (0.8-3.0) APTT (25.1-36.5) SECONDS Glucose (70-110) Sodium (135-145) mmol/L Potassium (3.5-5.1) mmol/L Chloride (98-107) mmol/L Carbon Dioxide (22-30) mmol/L Anion Gap (5-15) MEQ/L BUN (9-20) mg/dL Creatinine (0.66-1.25) mg/dL Estimated GFR ML/MIN POC Glucometer 378 H 348 H (74 to 106) mg/dL Hemoglobin A1c (4.5-6.0) % Lactic Acid (0.4-2.0) Calcium (8.4-10.2) mg/dL Magnesium (1.6-2.3) mg/dL Iron (49-181) ug/dL TIBC (261-497) ug/dL Iron Saturation (20-39) % Ferritin (17.9-464) ng/mL Total Bilirubin (0.2-1.3) mg/dL AST (17-59) U/L ALT (0-50) U/L Alkaline Phosphatase (38-126) U/L Serum Total Protein (6.3-8.2) g/dL Albumin (3.5-5.0) g/dL Prealbumin 10.30 L (17.6-36.0) mg/dL Vitamin B12 (239-931) pg/mL Folic Acid (2.76 - >20) ng/mL Procalcitonin (0.030-0.080) ng/mL Urine Color (Yellow) Urine Appearance (Clear) Urine pH (4.6-8.0) Ur Specific [place] (1.005-1.030) Urine Protein (Negative) Urine Glucose (UA) (Negative) mg/dL Urine Ketones (Negative) Urine Blood (Negative) Urine Nitrite (Negative) Urine Bilirubin (Negative) Urine Urobilinogen (0.2) mg/dL Ur Leukocyte Esterase (Negative) U Hyaline Cast (Auto) (0-2) /LPF Urine Microscopic RBC (0-5) /HPF Urine Microscopic WBC (0-5) /HPF Ur Epithelial Cells (None Seen) /HPF Urine Bacteria (None Seen) /HPF Urine Culture Reflexed (NO) Slides for Path Review ABO Group Rh Factor Antibody Screen (NEGATIVE) Accuchecks Date 06/05/25 Time 17:20 - Radiology Impressions Radiology Exams & Impressions: Radiology Procedures Category Date Time Status LOWER EXTREMITY WO CONTRAST [CT] Stat Exams 06/05/25 10:57 Completed LOWER EXTREMITY WO CONTRAST [CT] Stat Exams 06/05/25 10:58 Completed Assessment/Plan (1) Cellulitis and abscess Current Visit: No Status: Acute Assessment & Plan: Initial patient examination and evaluation Radiographs/CT scan reviewed demonstrating no soft tissue emphysema. mild soft tissue swelling appreciated. Bedside debridment preformed today with measurements as follows Left foot: 2nd toe: 4.9 1.3 x 0.1 cm 3rd toe: 3.0 1.5 x 0.1 cm 4th toe: 2.5 1.4 x 0.1 cm 5th toe: 3.3 2.9 0.1 cm 1st toe: 1.5 1.0 x 0.1 cm Right foot: Right great toe: 5.2 2.4 0.1 cm Dressing on presentation was iodine and mepilex however nurse called concerned with strikethrough and removed saturated dressing and replaces with iodine adaptic 4x4 ABD kerlix and MICA. Will Continue broad-spectrum IV antibiotics (vancomycin + piperacillin- tazobactam). Monitor for progression of blistering, erythema, crepitus, or systemic signs. Maintain strict glycemic control; continue IV fluids as needed. Proceed with MRI when available for further evaluation of deep soft-tissue or osseous involvement. Possible operative washout depending on clinical course. Elevation, offloading, and wound protection of affected areas. Thank you for the consult. Will follow with you. Code(s): L03.90 - CELLULITIS, UNSPECIFIED; L02.91 - CUTANEOUS ABSCESS, UNSPECIFIED (2) Diabetic foot ulcer Current Visit: Yes Status: Acute Qualifiers: Diabetic foot ulcer location: unspecified part of foot Diabetes mellitus type: other specified (including [place]) Laterality: unspecified laterality Non-pressure ulcer stage: unspecified non-pressure ulcer stage Qualified Code(s): E13.621 - Other specified diabetes mellitus with foot ulcer; L97.509 - Non-pressure chronic ulcer of other part of unspecified foot with unspecified severity Code(s): E11.621 - TYPE 2 DIABETES MELLITUS WITH FOOT ULCER; L97.509 - NON- PRESSURE CHRONIC ULCER OTH PRT UNSP FOOT W UNSP SEVERITY (3) Pseudohyponatremia Current Visit: Yes Status: Acute Code(s): R79.89 - OTHER SPECIFIED ABNORMAL FINDINGS OF BLOOD CHEMISTRY
[2025-06-05] MEDS: Lantus Insulin SQ SCH (21:33)
[2025-06-06] MEDS ORDERED: PIPERACILLIN/TAZOBACTAM IV ONE (05:14)
[2025-06-06 05:54] LABS: BASOPHIL % 0.9 % (0.2-1.2); Basophil (Absolute #) 0.06 x10^3/uL (0.01-0.08); Eosinophil (Absolute #) 0.26 x10^3/uL (0.04-0.54); Hematocrit 34.6 % (40.1-51.0); Hemoglobin 11.5 g/dL (13.7-17.5); IMMATURE GRAN # 0.04 x10^3u/L (0.001-0.031); IMMATURE GRAN % 0.6 % (0.001-0.429); Lymphocyte (Absolute #) 1.51 x10^3/uL (1.32-3.57); Mean Corpuscular Hemoglobin 28.6 pg (25.7-32.2); Mean Corpuscular Hgb Concent. 33.2 g/dL (32.3-36.5); Monocyte (Absolute #) 0.57 x10^3/uL (0.30-0.82); NUCLEATED RBC # 0.00 x10^3u/L (0.00-0.012); NUCLEATED RBC % 0.0 % (0.00-0.2); Platelet Count 146 x10^3/uL (163-337); Red Blood Count 4.02 x10^6/uL (4.63-6.08); White Blood Count 6.9 x10^3/uL (4.23-9.07)
[2025-06-06 06:16] LABS: Calcium 8.0 mg/dL (8.4-10.2); Carbon Dioxide 25.0 mmol/L (22-30); Creatinine 1 0.63 mg/dL (0.66-1.25); EST GLOMERULAR FILTRATION RATE 112.3 ML/MIN; Glucose 240.0 mg/dL (74-106); Potassium 3.7 mmol/L (3.5-5.1); SGOT/AST 23.0 U/L (17-59); SGPT/ALT 17.0 U/L (0-50); Total Protein 6.6 g/dL (6.3-8.2)
--- NOTE | 2025-06-06 07:33 | PCM.NOTE ---
Date and Time: 06/06/25 0731 Subjective Assessment: Mr.SOWDERS ARORA is a 55 year old male with a pmhx of insulin-dependent type 2 diabetes and hyperlipidemia who presented on 06-05-25 for evaluation of rapidly progressive bilateral foot blistering and erythema. He reports waking up with severe blister formation involving all toes of the left foot, accompanied by erythema extending to the midfoot and an additional blister at the left ankle. He notes a smaller blister on the right great toe along the medial aspect. He denies any recent trauma, new footwear, chemical exposures, mora, or systemic symptoms such as fever or chills. Pain is described as a constant sharp sensation, minimal at rest but escalating to severe intensity with weight- bearing. He reports no numbness or new sensory deficit. Examination demonstrated intact distal pulses, normal strength, and preserved sensation bilaterally, with left-sided erythema more prominent than the right. Denies fever,cough, sob, cp, abdominal pain, DIAZ, dizziness, N/V/D. Vital signs were stable on arrival. Lab findings remarkable for normocytic anemia with hemoglobin 12.8, marked hyperglycemia with glucose 728 improving to 378 following fluids, and pseudohyponatremia with sodium 128 in the setting of severe hyperglycemia. No acidosis was present; carbon dioxide, anion gap, and lactic acid were all within normal limits. Inflammatory markers were notable for elevated ESR 75 and procalcitonin 0.183. Alk phos was elevated at 166. Urinalysis demonstrated heavy glucosuria greater than 1000, trace leukocyte esterase, 2150 WBCs, and bacteria on microscopy.CT imaging of the right lower extremity showed degenerative changes with a calcaneal spur, soft tissue edema around the foot, and swelling involving the right fifth metatarsophalangeal joint without lytic or sclerotic lesions. CT of the left lower extremity demonstrated similar degenerative changes and calcaneal spur, with more significant soft tissue edema, swelling involving the left metatarsophalangeal joint, and associated joint effusion. Findings raised concern for deep soft- tissue infection; MRI was recommended but is unavailable at this facility over the weekend. Dr. Haynes (Podiatry) reviewed the case and is evaluating for possible operative washout . Empiric treatment with vancomycin and Zosyn has been initiated. Podiatry performed bedside debridement with recommendations for continued monitoring for progression of blistering, erythema, crepitus, or systemic signs. Maintain strict glycemic control; continue IV fluids as needed. Proceed with MRI when available for further evaluation of deep soft-tissue or osseous involvement. Possible operative washout depending on clinical course. Elevation, offloading, and wound protection of affected areas. 06/06: Met with patient bedside. He endorses persistent but improved bilateral foot pain, now rating it 2/10 with current therapy. He denies fever, chills, nausea, vomiting, chest pain, shortness of breath, dizziness, or new sensory changes. He is aware of and agrees with the plan to continue IV antibiotics and proceed with MRI on Saturday when available. He mentions mild fatigue but has no other new complaints. He was informed of his low blood pressure this morning but reports no lightheadedness or symptoms associated with it. - Review of Systems Constitutional: Weakness Eyes: No Symptoms Ears, Nose, & Throat: No Symptoms Respiratory: No Symptoms Cardiac: Edema (BLE trace ) Abdominal/Gastrointestinal: No Symptoms Genitourinary Symptoms: No Symptoms Musculoskeletal: No Symptoms Skin: Cellulitis (Left foot covered in surgical dressing CDI Right great toe Isolated blister on the medial right great toe Mild erythema surrounding area) Neurological: No Symptoms Psychological: No Symptoms Endocrine: No Symptoms Hematologic/Lymphatic: No Symptoms Immunological/Allergic: No Symptoms Objective Exam General Appearance: no apparent distress (Left foot covered in surgical dressing CDI Right great toe Isolated blister on the medial right great toe Mild erythema surrounding area) Neurologic Exam: alert, oriented x 3, cooperative Skin Exam: other Wound Assessment: Skin/Wound Assessment Wound/Incision Assessment Start: 06/05/25 16:30 Text: Status: Active Freq: Q6H Protocol: Document 06/06/25 02:00 MP (Rec: 06/06/25 02:09 MP [id number]) Wound/Incision Assessment Left Foot Wound Assessment Shift Assessment Primary Dressing mepilex Secondary Dressing Gauze Roll/Wrap Comment unable to assess due to dressing in place. Dressing C/ D/I Wound Photo Photo Taken No Eye Exam: PERRL Ears, Nose, Throat Exam: normal ENT inspection Neck Exam: normal inspection Respiratory Exam: normal breath sounds, lungs clear Cardiovascular Exam: regular rate/rhythm, normal heart sounds Gastrointestinal/Abdomen Exam: soft, normal bowel sounds Extremity Exam: other (Left foot covered in surgical dressing CDI Right great toe Isolated blister on the medial right great toe Mild erythema surrounding area) Back Exam: normal inspection Male Genitalia Exam: deferred Rectal Exam: deferred Objective Data Vital Signs: Vital Signs - 24 hr Temp Pulse Resp BP BP Pulse Ox 06/06/25 07:00 97.8 F 75 18 85/50 97 06/06/25 03:00 98.1 F 78 18 100/58 95 06/05/25 23:00 97.3 F 71 18 107/67 98 06/05/25 19:00 97.3 F 78 20 116/70 98 06/05/25 15:54 97 F 70 16 124/79 95 06/05/25 14:57 97 F 70 17 124/79 95 06/05/25 14:39 98 06/05/25 14:00 113/65 98 06/05/25 13:54 97 06/05/25 13:40 95 06/05/25 13:33 96 06/05/25 13:01 117/86 95 06/05/25 12:01 82 14 96/61 95 06/05/25 11:31 83 27 H 111/63 96 06/05/25 11:01 98 06/05/25 11:00 94 H 14 128/82 95 06/05/25 10:48 97.1 F 88 132/74 97 Pain Assessment - Last Documented Pain Intensity 2 Intake and Output: Intake & Output 06/03/25 06/04/25 06/05/25 06/06/25 11:59 11:59 11:59 11:59 Intake Total 2096 Balance 2096 Weight 84.822 kg 85 kg Lab Results: Lab Results-Last 24 Hours 06/05/25 06/05/25 06/05/25 Range/Units 10:51 11:00 11:00 WBC (4.23-9.07) x10^3/uL RBC (4.63-6.08) x10^6/uL Hgb (13.7-17.5) g/dL Hct (40.1-51.0) % MCV (79.0-92.2) fL MCH (25.7-32.2) pg MCHC (32.3-36.5) g/dL RDW (11.6-14.4) % Plt Count (163-337) x10^3/uL MPV (9.4-12.4) fL Gran % (34.0-67.9) % Immature Gran % (Auto) (0.001-0.429) % Nucleat RBC Rel Count (0.00-0.2) % Eos # (Auto) (0.04-0.54) x10^3/uL Immature Gran # (Auto) (0.001-0.031) x10^3u/L Absolute Lymphs (auto) (1.32-3.57) x10^3/uL Absolute Monos (auto) (0.30-0.82) x10^3/uL Absolute Nucleated RBC (0.00-0.012) x10^3u/L Lymphocytes % (21.8-53.1) % Monocytes % (5.3-12.2) % Eosinophils % (0.8-7.0) % Basophils % (0.2-1.2) % Absolute Granulocytes (1.78-5.38) x10^3/uL Basophils # (0.01-0.08) x10^3/uL ESR 75 H (0-15) mm/hr PT 10.6 (9.4-12.5) SECONDS INR 0.94 (0.8-3.0) APTT 25.8 (25.1-36.5) SECONDS Glucose 685 H* (70-110) Sodium (135-145) mmol/L Potassium (3.5-5.1) mmol/L Chloride (98-107) mmol/L Carbon Dioxide (22-30) mmol/L Anion Gap (5-15) MEQ/L BUN (9-20) mg/dL Creatinine (0.66-1.25) mg/dL Estimated GFR ML/MIN POC Glucometer (74 to 106) mg/dL Hemoglobin A1c (4.5-6.0) % Lactic Acid 1.8 (0.4-2.0) Calcium (8.4-10.2) mg/dL Magnesium (1.6-2.3) mg/dL Iron (49-181) ug/dL TIBC (261-497) ug/dL Iron Saturation (20-39) % Ferritin (17.9-464) ng/mL Total Bilirubin (0.2-1.3) mg/dL AST (17-59) U/L ALT (0-50) U/L Alkaline Phosphatase (38-126) U/L Serum Total Protein (6.3-8.2) g/dL Albumin (3.5-5.0) g/dL Prealbumin (17.6-36.0) mg/dL Vitamin B12 (239-931) pg/mL Folic Acid (2.76 - >20) ng/mL Procalcitonin (0.030-0.080) ng/mL Urine Color (Yellow) Urine Appearance (Clear) Urine pH (4.6-8.0) Ur Specific Howe (1.005-1.030) Urine Protein (Negative) Urine Glucose (UA) (Negative) mg/dL Urine Ketones (Negative) Urine Blood (Negative) Urine Nitrite (Negative) Urine Bilirubin (Negative) Urine Urobilinogen (0.2) mg/dL Ur Leukocyte Esterase (Negative) U Hyaline Cast (Auto) (0-2) /LPF Urine Microscopic RBC (0-5) /HPF Urine Microscopic WBC (0-5) /HPF Ur Epithelial Cells (None Seen) /HPF Urine Bacteria (None Seen) /HPF Urine Culture Reflexed (NO) Slides for Path Review ABO Group Rh Factor Antibody Screen (NEGATIVE) 06/05/25 06/05/25 06/05/25 Range/Units 11:26 11:29 11:29 WBC 7.0 (4.23-9.07) x10^3/uL RBC 4.61 L (4.63-6.08) x10^6/uL Hgb 12.8 L (13.7-17.5) g/dL Hct 40.9 (40.1-51.0) % MCV 88.7 (79.0-92.2) fL MCH 27.8 (25.7-32.2) pg MCHC 31.3 L (32.3-36.5) g/dL RDW 13.1 (11.6-14.4) % Plt Count 126 L (163-337) x10^3/uL MPV 11.1 (9.4-12.4) fL Gran % 72.6 H (34.0-67.9) % Immature Gran % (Auto) 0.6 H (0.001-0.429) % Nucleat RBC Rel Count 0.0 (0.00-0.2) % Eos # (Auto) 0.14 (0.04-0.54) x10^3/uL Immature Gran # (Auto) 0.04 H (0.001-0.031) x10^3u/L Absolute Lymphs (auto) 1.03 L (1.32-3.57) x10^3/uL Absolute Monos (auto) 0.63 (0.30-0.82) x10^3/uL Absolute Nucleated RBC 0.00 (0.00-0.012) x10^3u/L Lymphocytes % 14.8 L (21.8-53.1) % Monocytes % 9.1 (5.3-12.2) % Eosinophils % 2.0 (0.8-7.0) % Basophils % 0.9 (0.2-1.2) % Absolute Granulocytes 5.06 (1.78-5.38) x10^3/uL Basophils # 0.06 (0.01-0.08) x10^3/uL ESR (0-15) mm/hr PT (9.4-12.5) SECONDS INR (0.8-3.0) APTT (25.1-36.5) SECONDS Glucose 728 H* (70-110) Sodium 128 L (135-145) mmol/L Potassium 4.3 (3.5-5.1) mmol/L Chloride 94 L (98-107) mmol/L Carbon Dioxide 24 (22-30) mmol/L Anion Gap 14.2 (5-15) MEQ/L BUN 16 (9-20) mg/dL Creatinine 0.64 L (0.66-1.25) mg/dL Estimated GFR 111.8 ML/MIN POC Glucometer (74 to 106) mg/dL Hemoglobin A1c (4.5-6.0) % Lactic Acid (0.4-2.0) Calcium 8.8 (8.4-10.2) mg/dL Magnesium (1.6-2.3) mg/dL Iron (49-181) ug/dL TIBC (261-497) ug/dL Iron Saturation (20-39) % Ferritin (17.9-464) ng/mL Total Bilirubin 1.10 (0.2-1.3) mg/dL AST 24 (17-59) U/L ALT 24 (0-50) U/L Alkaline Phosphatase 166 H (38-126) U/L Serum Total Protein 7.8 (6.3-8.2) g/dL Albumin 3.9 (3.5-5.0) g/dL Prealbumin (17.6-36.0) mg/dL Vitamin B12 (239-931) pg/mL Folic Acid (2.76 - >20) ng/mL Procalcitonin (0.030-0.080) ng/mL Urine Color Yellow (Yellow) Urine Appearance Clear (Clear) Urine pH 6.0 (4.6-8.0) Ur Specific Howe >=1.030 A (1.005-1.030) Urine Protein Negative (Negative) Urine Glucose (UA) >=1000 A (Negative) mg/dL Urine Ketones Trace A (Negative) Urine Blood Negative (Negative) Urine Nitrite Negative (Negative) Urine Bilirubin Negative (Negative) Urine Urobilinogen 1.0 A (0.2) mg/dL Ur Leukocyte Esterase Trace A (Negative) U Hyaline Cast (Auto) NONE SEEN (0-2) /LPF Urine Microscopic RBC 0-2 (0-5) /HPF Urine Microscopic WBC 21-50 A (0-5) /HPF Ur Epithelial Cells None Seen (None Seen) /HPF Urine Bacteria Many A (None Seen) /HPF Urine Culture Reflexed YES (NO) Slides for Path Review YES ABO Group Rh Factor Antibody Screen (NEGATIVE) 06/05/25 06/05/25 06/05/25 Range/Units 11:29 11:29 11:29 WBC (4.23-9.07) x10^3/uL RBC (4.63-6.08) x10^6/uL Hgb (13.7-17.5) g/dL Hct (40.1-51.0) % MCV (79.0-92.2) fL MCH (25.7-32.2) pg MCHC (32.3-36.5) g/dL RDW (11.6-14.4) % Plt Count (163-337) x10^3/uL MPV (9.4-12.4) fL Gran % (34.0-67.9) % Immature Gran % (Auto) (0.001-0.429) % Nucleat RBC Rel Count (0.00-0.2) % Eos # (Auto) (0.04-0.54) x10^3/uL Immature Gran # (Auto) (0.001-0.031) x10^3u/L Absolute Lymphs (auto) (1.32-3.57) x10^3/uL Absolute Monos (auto) (0.30-0.82) x10^3/uL Absolute Nucleated RBC (0.00-0.012) x10^3u/L Lymphocytes % (21.8-53.1) % Monocytes % (5.3-12.2) % Eosinophils % (0.8-7.0) % Basophils % (0.2-1.2) % Absolute Granulocytes (1.78-5.38) x10^3/uL Basophils # (0.01-0.08) x10^3/uL ESR (0-15) mm/hr PT (9.4-12.5) SECONDS INR (0.8-3.0) APTT (25.1-36.5) SECONDS Glucose (70-110) Sodium (135-145) mmol/L Potassium (3.5-5.1) mmol/L Chloride (98-107) mmol/L Carbon Dioxide (22-30) mmol/L Anion Gap (5-15) MEQ/L BUN (9-20) mg/dL Creatinine (0.66-1.25) mg/dL Estimated GFR ML/MIN POC Glucometer (74 to 106) mg/dL Hemoglobin A1c (4.5-6.0) % Lactic Acid (0.4-2.0) Calcium (8.4-10.2) mg/dL Magnesium (1.6-2.3) mg/dL Iron (49-181) ug/dL TIBC (261-497) ug/dL Iron Saturation (20-39) % Ferritin 657 H (17.9-464) ng/mL Total Bilirubin (0.2-1.3) mg/dL AST (17-59) U/L ALT (0-50) U/L Alkaline Phosphatase (38-126) U/L Serum Total Protein (6.3-8.2) g/dL Albumin (3.5-5.0) g/dL Prealbumin (17.6-36.0) mg/dL Vitamin B12 778 (239-931) pg/mL Folic Acid 9.25 (2.76 - >20) ng/mL Procalcitonin 0.183 H (0.030-0.080) ng/mL Urine Color (Yellow) Urine Appearance (Clear) Urine pH (4.6-8.0) Ur Specific Howe (1.005-1.030) Urine Protein (Negative) Urine Glucose (UA) (Negative) mg/dL Urine Ketones (Negative) Urine Blood (Negative) Urine Nitrite (Negative) Urine Bilirubin (Negative) Urine Urobilinogen (0.2) mg/dL Ur Leukocyte Esterase (Negative) U Hyaline Cast (Auto) (0-2) /LPF Urine Microscopic RBC (0-5) /HPF Urine Microscopic WBC (0-5) /HPF Ur Epithelial Cells (None Seen) /HPF Urine Bacteria (None Seen) /HPF Urine Culture Reflexed (NO) Slides for Path Review ABO Group A Rh Factor NEGATIVE Antibody Screen NEGATIVE (NEGATIVE) 06/05/25 06/05/25 06/05/25 Range/Units 11:29 11:29 12:24 WBC (4.23-9.07) x10^3/uL RBC (4.63-6.08) x10^6/uL Hgb (13.7-17.5) g/dL Hct (40.1-51.0) % MCV (79.0-92.2) fL MCH (25.7-32.2) pg MCHC (32.3-36.5) g/dL RDW (11.6-14.4) % Plt Count (163-337) x10^3/uL MPV (9.4-12.4) fL Gran % (34.0-67.9) % Immature Gran % (Auto) (0.001-0.429) % Nucleat RBC Rel Count (0.00-0.2) % Eos # (Auto) (0.04-0.54) x10^3/uL Immature Gran # (Auto) (0.001-0.031) x10^3u/L Absolute Lymphs (auto) (1.32-3.57) x10^3/uL Absolute Monos (auto) (0.30-0.82) x10^3/uL Absolute Nucleated RBC (0.00-0.012) x10^3u/L Lymphocytes % (21.8-53.1) % Monocytes % (5.3-12.2) % Eosinophils % (0.8-7.0) % Basophils % (0.2-1.2) % Absolute Granulocytes (1.78-5.38) x10^3/uL Basophils # (0.01-0.08) x10^3/uL ESR (0-15) mm/hr PT (9.4-12.5) SECONDS INR (0.8-3.0) APTT (25.1-36.5) SECONDS Glucose (70-110) Sodium (135-145) mmol/L Potassium (3.5-5.1) mmol/L Chloride (98-107) mmol/L Carbon Dioxide (22-30) mmol/L Anion Gap (5-15) MEQ/L BUN (9-20) mg/dL Creatinine (0.66-1.25) mg/dL Estimated GFR ML/MIN POC Glucometer (74 to 106) mg/dL Hemoglobin A1c 12.39 H (4.5-6.0) % Lactic Acid (0.4-2.0) Calcium (8.4-10.2) mg/dL Magnesium 2.0 (1.6-2.3) mg/dL Iron 56 (49-181) ug/dL TIBC 212 L (261-497) ug/dL Iron Saturation 26 (20-39) % Ferritin (17.9-464) ng/mL Total Bilirubin (0.2-1.3) mg/dL AST (17-59) U/L ALT (0-50) U/L Alkaline Phosphatase (38-126) U/L Serum Total Protein (6.3-8.2) g/dL Albumin (3.5-5.0) g/dL Prealbumin (17.6-36.0) mg/dL Vitamin B12 (239-931) pg/mL Folic Acid (2.76 - >20) ng/mL Procalcitonin (0.030-0.080) ng/mL Urine Color (Yellow) Urine Appearance (Clear) Urine pH (4.6-8.0) Ur Specific Howe (1.005-1.030) Urine Protein (Negative) Urine Glucose (UA) (Negative) mg/dL Urine Ketones (Negative) Urine Blood (Negative) Urine Nitrite (Negative) Urine Bilirubin (Negative) Urine Urobilinogen (0.2) mg/dL Ur Leukocyte Esterase (Negative) U Hyaline Cast (Auto) (0-2) /LPF Urine Microscopic RBC (0-5) /HPF Urine Microscopic WBC (0-5) /HPF Ur Epithelial Cells (None Seen) /HPF Urine Bacteria (None Seen) /HPF Urine Culture Reflexed (NO) Slides for Path Review ABO Group Rh Factor Antibody Screen (NEGATIVE) 06/05/25 06/05/25 06/05/25 Range/Units 13:54 16:30 16:50 WBC (4.23-9.07) x10^3/uL RBC (4.63-6.08) x10^6/uL Hgb (13.7-17.5) g/dL Hct (40.1-51.0) % MCV (79.0-92.2) fL MCH (25.7-32.2) pg MCHC (32.3-36.5) g/dL RDW (11.6-14.4) % Plt Count (163-337) x10^3/uL MPV (9.4-12.4) fL Gran % (34.0-67.9) % Immature Gran % (Auto) (0.001-0.429) % Nucleat RBC Rel Count (0.00-0.2) % Eos # (Auto) (0.04-0.54) x10^3/uL Immature Gran # (Auto) (0.001-0.031) x10^3u/L Absolute Lymphs (auto) (1.32-3.57) x10^3/uL Absolute Monos (auto) (0.30-0.82) x10^3/uL Absolute Nucleated RBC (0.00-0.012) x10^3u/L Lymphocytes % (21.8-53.1) % Monocytes % (5.3-12.2) % Eosinophils % (0.8-7.0) % Basophils % (0.2-1.2) % Absolute Granulocytes (1.78-5.38) x10^3/uL Basophils # (0.01-0.08) x10^3/uL ESR (0-15) mm/hr PT (9.4-12.5) SECONDS INR (0.8-3.0) APTT (25.1-36.5) SECONDS Glucose (70-110) Sodium (135-145) mmol/L Potassium (3.5-5.1) mmol/L Chloride (98-107) mmol/L Carbon Dioxide (22-30) mmol/L Anion Gap (5-15) MEQ/L BUN (9-20) mg/dL Creatinine (0.66-1.25) mg/dL Estimated GFR ML/MIN POC Glucometer 378 H 348 H (74 to 106) mg/dL Hemoglobin A1c (4.5-6.0) % Lactic Acid (0.4-2.0) Calcium (8.4-10.2) mg/dL Magnesium (1.6-2.3) mg/dL Iron (49-181) ug/dL TIBC (261-497) ug/dL Iron Saturation (20-39) % Ferritin (17.9-464) ng/mL Total Bilirubin (0.2-1.3) mg/dL AST (17-59) U/L ALT (0-50) U/L Alkaline Phosphatase (38-126) U/L Serum Total Protein (6.3-8.2) g/dL Albumin (3.5-5.0) g/dL Prealbumin 10.30 L (17.6-36.0) mg/dL Vitamin B12 (239-931) pg/mL Folic Acid (2.76 - >20) ng/mL Procalcitonin (0.030-0.080) ng/mL Urine Color (Yellow) Urine Appearance (Clear) Urine pH (4.6-8.0) Ur Specific Howe (1.005-1.030) Urine Protein (Negative) Urine Glucose (UA) (Negative) mg/dL Urine Ketones (Negative) Urine Blood (Negative) Urine Nitrite (Negative) Urine Bilirubin (Negative) Urine Urobilinogen (0.2) mg/dL Ur Leukocyte Esterase (Negative) U Hyaline Cast (Auto) (0-2) /LPF Urine Microscopic RBC (0-5) /HPF Urine Microscopic WBC (0-5) /HPF Ur Epithelial Cells (None Seen) /HPF Urine Bacteria (None Seen) /HPF Urine Culture Reflexed (NO) Slides for Path Review ABO Group Rh Factor Antibody Screen (NEGATIVE) 06/05/25 06/06/25 06/06/25 Range/Units 21:20 05:25 05:25 WBC 6.9 (4.23-9.07) x10^3/uL RBC 4.02 L (4.63-6.08) x10^6/uL Hgb 11.5 L (13.7-17.5) g/dL Hct 34.6 L (40.1-51.0) % MCV 86.1 (79.0-92.2) fL MCH 28.6 (25.7-32.2) pg MCHC 33.2 (32.3-36.5) g/dL RDW 13.0 (11.6-14.4) % Plt Count 146 L (163-337) x10^3/uL MPV 10.5 (9.4-12.4) fL Gran % 64.5 (34.0-67.9) % Immature Gran % (Auto) 0.6 H (0.001-0.429) % Nucleat RBC Rel Count 0.0 (0.00-0.2) % Eos # (Auto) 0.26 (0.04-0.54) x10^3/uL Immature Gran # (Auto) 0.04 H (0.001-0.031) x10^3u/L Absolute Lymphs (auto) 1.51 (1.32-3.57) x10^3/uL Absolute Monos (auto) 0.57 (0.30-0.82) x10^3/uL Absolute Nucleated RBC 0.00 (0.00-0.012) x10^3u/L Lymphocytes % 21.9 (21.8-53.1) % Monocytes % 8.3 (5.3-12.2) % Eosinophils % 3.8 (0.8-7.0) % Basophils % 0.9 (0.2-1.2) % Absolute Granulocytes 4.46 (1.78-5.38) x10^3/uL Basophils # 0.06 (0.01-0.08) x10^3/uL ESR (0-15) mm/hr PT (9.4-12.5) SECONDS INR (0.8-3.0) APTT (25.1-36.5) SECONDS Glucose 240 H (70-110) Sodium 133 L (135-145) mmol/L Potassium 3.7 (3.5-5.1) mmol/L Chloride 103 (98-107) mmol/L Carbon Dioxide 25 (22-30) mmol/L Anion Gap 8.0 (5-15) MEQ/L BUN 13 (9-20) mg/dL Creatinine 0.63 L (0.66-1.25) mg/dL Estimated GFR 112.3 ML/MIN POC Glucometer 197 H (74 to 106) mg/dL Hemoglobin A1c (4.5-6.0) % Lactic Acid (0.4-2.0) Calcium 8.0 L (8.4-10.2) mg/dL Magnesium (1.6-2.3) mg/dL Iron (49-181) ug/dL TIBC (261-497) ug/dL Iron Saturation (20-39) % Ferritin (17.9-464) ng/mL Total Bilirubin 0.50 (0.2-1.3) mg/dL AST 23 (17-59) U/L ALT 17 (0-50) U/L Alkaline Phosphatase 116 (38-126) U/L Serum Total Protein 6.6 (6.3-8.2) g/dL Albumin 3.1 L (3.5-5.0) g/dL Prealbumin (17.6-36.0) mg/dL Vitamin B12 (239-931) pg/mL Folic Acid (2.76 - >20) ng/mL Procalcitonin (0.030-0.080) ng/mL Urine Color (Yellow) Urine Appearance (Clear) Urine pH (4.6-8.0) Ur Specific Howe (1.005-1.030) Urine Protein (Negative) Urine Glucose (UA) (Negative) mg/dL Urine Ketones (Negative) Urine Blood (Negative) Urine Nitrite (Negative) Urine Bilirubin (Negative) Urine Urobilinogen (0.2) mg/dL Ur Leukocyte Esterase (Negative) U Hyaline Cast (Auto) (0-2) /LPF Urine Microscopic RBC (0-5) /HPF Urine Microscopic WBC (0-5) /HPF Ur Epithelial Cells (None Seen) /HPF Urine Bacteria (None Seen) /HPF Urine Culture Reflexed (NO) Slides for Path Review ABO Group Rh Factor Antibody Screen (NEGATIVE) 06/06/25 Range/Units 07:04 WBC (4.23-9.07) x10^3/uL RBC (4.63-6.08) x10^6/uL Hgb (13.7-17.5) g/dL Hct (40.1-51.0) % MCV (79.0-92.2) fL MCH (25.7-32.2) pg MCHC (32.3-36.5) g/dL RDW (11.6-14.4) % Plt Count (163-337) x10^3/uL MPV (9.4-12.4) fL Gran % (34.0-67.9) % Immature Gran % (Auto) (0.001-0.429) % Nucleat RBC Rel Count (0.00-0.2) % Eos # (Auto) (0.04-0.54) x10^3/uL Immature Gran # (Auto) (0.001-0.031) x10^3u/L Absolute Lymphs (auto) (1.32-3.57) x10^3/uL Absolute Monos (auto) (0.30-0.82) x10^3/uL Absolute Nucleated RBC (0.00-0.012) x10^3u/L Lymphocytes % (21.8-53.1) % Monocytes % (5.3-12.2) % Eosinophils % (0.8-7.0) % Basophils % (0.2-1.2) % Absolute Granulocytes (1.78-5.38) x10^3/uL Basophils # (0.01-0.08) x10^3/uL ESR (0-15) mm/hr PT (9.4-12.5) SECONDS INR (0.8-3.0) APTT (25.1-36.5) SECONDS Glucose (70-110) Sodium (135-145) mmol/L Potassium (3.5-5.1) mmol/L Chloride (98-107) mmol/L Carbon Dioxide (22-30) mmol/L Anion Gap (5-15) MEQ/L BUN (9-20) mg/dL Creatinine (0.66-1.25) mg/dL Estimated GFR ML/MIN POC Glucometer 270 H (74 to 106) mg/dL Hemoglobin A1c (4.5-6.0) % Lactic Acid (0.4-2.0) Calcium (8.4-10.2) mg/dL Magnesium (1.6-2.3) mg/dL Iron (49-181) ug/dL TIBC (261-497) ug/dL Iron Saturation (20-39) % Ferritin (17.9-464) ng/mL Total Bilirubin (0.2-1.3) mg/dL AST (17-59) U/L ALT (0-50) U/L Alkaline Phosphatase (38-126) U/L Serum Total Protein (6.3-8.2) g/dL Albumin (3.5-5.0) g/dL Prealbumin (17.6-36.0) mg/dL Vitamin B12 (239-931) pg/mL Folic Acid (2.76 - >20) ng/mL Procalcitonin (0.030-0.080) ng/mL Urine Color (Yellow) Urine Appearance (Clear) Urine pH (4.6-8.0) Ur Specific Howe (1.005-1.030) Urine Protein (Negative) Urine Glucose (UA) (Negative) mg/dL Urine Ketones (Negative) Urine Blood (Negative) Urine Nitrite (Negative) Urine Bilirubin (Negative) Urine Urobilinogen (0.2) mg/dL Ur Leukocyte Esterase (Negative) U Hyaline Cast (Auto) (0-2) /LPF Urine Microscopic RBC (0-5) /HPF Urine Microscopic WBC (0-5) /HPF Ur Epithelial Cells (None Seen) /HPF Urine Bacteria (None Seen) /HPF Urine Culture Reflexed (NO) Slides for Path Review ABO Group Rh Factor Antibody Screen (NEGATIVE) Radiology Exams: Radiology Procedures Category Date Time Status LOWER EXTREMITY WO CONTRAST [CT] Stat Exams 06/05/25 10:57 Completed LOWER EXTREMITY WO CONTRAST [CT] Stat Exams 06/05/25 10:58 Completed Medications: Medications Generic Name Dose Route Start Last Admin Trade Name Freq PRN Reason Stop Dose Admin Acetaminophen 650 mg 06/05/25 15:58 Acetaminophen 325 Mg Tablet PO 07/05/25 15:57 Q4H PRN PRN PAIN, FEVER, HEADACHE Hydrocodone Bitart/Acetaminophen 1 tab 06/05/25 15:58 Hydrocodone/Apap 5/325 1 Tab Tablet PO 06/10/25 15:57 Q4H PRN PRN PAIN Hydromorphone HCl 0.5 mg 06/05/25 15:58 Hydromorphone 1 Mg/1ml Inj IV 06/10/25 15:57 Q4H PRN PRN PAIN Sodium Chloride 1,000 mls @ 100 mls/hr 06/05/25 16:00 06/06/25 02:53 Sodium Chloride 0.9% 1000 Ml IV 07/05/25 15:59 100 mls/hr .Q10H OFELIA Administration Piperacillin Sod/Tazobactam 100 mls @ 200 mls/hr 06/05/25 18:00 06/06/25 05:16 Sod 3.375 gm/ Sodium Chloride IV 06/08/25 17:59 200 mls/hr Q6HT OFELIA Administration Insulin Glargine 25 unit 06/05/25 22:00 06/05/25 21:33 Insulin Glargine 1 Unit SQ 07/05/25 21:59 25 unit BID OFELIA Administration Insulin Glargine 25 unit 06/05/25 16:50 06/05/25 16:56 Insulin Glargine 1 Unit SQ 06/05/25 16:51 25 unit ONCE ONE Administration Insulin Human Lispro 0 unit 06/05/25 15:58 06/05/25 21:34 Insulin Lispro 1 Unit SQ 07/05/25 15:57 4 unit UD PRN Administration HYPERGLYCEMIA Non-Formulary Medication 1 each 06/05/25 16:00 Pharmacy Dose Request: Vancomycin 1 Each IV 07/05/25 [facility] 4 mg 06/05/25 15:58 Ondansetron Hcl 4 Mg/2 Ml Vial IV 07/05/25 15:57 Q6H PRN PRN NAUSEA/VOMITING Pantoprazole Sodium 40 mg 06/06/25 10:00 Protonix (Pantoprazole) 40 Mg Tablet PO 07/06/25 09:59 DAILY OFELIA Discontinued Medications Generic Name Dose Route Start Last Admin Trade Name Freq PRN Reason Stop Dose Admin Sodium Chloride 1,000 mls @ 999 mls/hr 06/05/25 10:51 06/05/25 12:10 Sodium Chloride 0.9% 1000 Ml IV 06/05/25 11:51 Infused .Q1H1M STA Infusion Sodium Chloride Confirm 06/05/25 11:06 Sodium Chloride 0.9% 1000 Ml Administered 06/05/25 11:07 Dose 1,000 mls @ ud .ROUTE .STK-MED ONE Piperacillin Sod/Tazobactam 100 mls @ 200 mls/hr 06/05/25 11:08 06/05/25 11:53 Sod 4.5 gm/ Sodium Chloride IV 06/05/25 11:37 Infused STAT STA Infusion Vancomycin HCl 1.25 gm in 250 mls @ 150 mls/hr 06/05/25 11:15 06/05/25 14:01 Vancomycin 1.25 Gm/250 Ml Bag IV 06/08/25 11:14 Infused Q12H OFELIA Infusion Sodium Chloride Confirm 06/05/25 11:11 Sodium Chloride 0.9% Administered 06/05/25 11:12 Dose 100 mls @ ud .ROUTE .STK-MED ONE Sodium Chloride 1,000 mls @ 999 mls/hr 06/05/25 12:24 06/05/25 13:43 Sodium Chloride 0.9% 1000 Ml IV 06/05/25 13:24 Infused .Q1H1M STA Infusion Sodium Chloride Confirm 06/05/25 12:27 Sodium Chloride 0.9% 1000 Ml Administered 06/05/25 12:28 Dose 1,000 mls @ ud .ROUTE .STK-MED ONE Sodium Chloride Confirm 06/05/25 17:43 Sodium Chloride 0.9% Administered 06/05/25 17:44 Dose 100 mls @ ud .ROUTE .STK-MED ONE Sodium Chloride Confirm 06/05/25 23:35 Sodium Chloride 0.9% Administered 06/05/25 23:36 Dose 100 mls @ ud .ROUTE .STK-MED ONE Sodium Chloride Confirm 06/06/25 05:14 Sodium Chloride 0.9% Administered 06/06/25 05:15 Dose 100 mls @ ud .ROUTE .STK-MED ONE Piperacillin Sod/Tazobactam Sod Confirm 06/05/25 11:11 Piperacillin/Tazobactam Sodium 4.5 Gm Vial Administered 06/05/25 11:12 Dose 4.5 gm IV .STK-MED ONE Piperacillin Sod/Tazobactam Sod Confirm 06/05/25 17:43 Piperacillin/Tazobactam Sodium 3.375 Gm Vial Administered 06/05/25 17:44 Dose 3.375 gm IV .STK-MED ONE Piperacillin Sod/Tazobactam Sod Confirm 06/05/25 23:35 Piperacillin/Tazobactam Sodium 3.375 Gm Vial Administered 06/05/25 23:36 Dose 3.375 gm IV .STK-MED ONE Piperacillin Sod/Tazobactam Sod Confirm 06/06/25 05:14 Piperacillin/Tazobactam Sodium 3.375 Gm Vial Administered 06/06/25 05:15 Dose 3.375 gm IV .STK-MED ONE Assessment/Plan (1) Diabetic foot ulcer Current Visit: Yes Status: Acute Qualifiers: Diabetic foot ulcer location: unspecified part of foot Diabetes mellitus type: other specified (including JUANCHO) Laterality: unspecified laterality Non-pressure ulcer stage: unspecified non-pressure ulcer stage Qualified Code(s): E13.621 - Other specified diabetes mellitus with foot ulcer; L97.509 - Non-pressure chronic ulcer of other part of unspecified foot with unspecified severity Assessment & Plan: -Rapid onset blistering involving all left toes with erythema to midfoot and additional ankle blister; right great toe blister medially. -CT bilateral LEs demonstrating subcutaneous edema; left with MTP joint effusion suggesting deeper involvement. -Elevated ESR and procalcitonin ; WBC WNL -vancomycin + Zosyn started in ED, continue -Podiatry consulted; surgical washout under consideration. -Strict [id number]-miyluuo on the left, limited weight-bearing right as tolerated pending podiatry eval -obtain MRI when available and venous/arterial US -Monitor for compartment syndrome, necrotizing infection, or progression of erythema. -Wound, blood cultures pending -Stefan borders of erythema and monitor progression. -Pain control 06/06: -S/P debridement day 1- patient doing well -Reviewed podiatry documentation; agree with plan -Continue IV vancomycin + piperacillin-tazobactam pending clinical course. -Monitor for progression of erythema, blistering, crepitus, systemic signs. -Maintain strict elevation, offloading, and wound protection. -Podiatry following; continue bedside wound care per recommendations. -MRI scheduled for Saturday when available to assess for deep tissue or osseous involvement possible washout pending results Code(s): E11.621 - TYPE 2 DIABETES MELLITUS WITH FOOT ULCER; L97.509 - NON- PRESSURE CHRONIC ULCER OTH PRT UNSP FOOT W UNSP SEVERITY (2) UTI (urinary tract infection) Current Visit: Yes Status: Acute Assessment & Plan: -UA suspicious for UTI, culture pending - will follow - continue vanc/zosyn as above Code(s): N39.0 - URINARY TRACT INFECTION, SITE NOT SPECIFIED (3) HLD (hyperlipidemia) Current Visit: Yes Status: Acute Assessment & Plan: -Per patient no longer on statin therapy Code(s): E78.5 - HYPERLIPIDEMIA, UNSPECIFIED (4) Normocytic anemia Current Visit: Yes Status: Acute Assessment & Plan: -Hgb stable at 12.8- add iron studies-trend Code(s): D64.9 - ANEMIA, UNSPECIFIED (5) Pseudohyponatremia Current Visit: Yes Status: Acute Assessment & Plan: -Sodium level 128 in the setting of hyperglycemia -Corrects toward normal as glucose treated. 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 -Repeat BMP after glucose < 250 to reassess true sodium level. 06/06: -Sodium reviewed and has improved to 133 -continue gentle hydration Code(s): R79.89 - OTHER SPECIFIED ABNORMAL FINDINGS OF BLOOD CHEMISTRY (6) Diabetes mellitus with hyperglycemia Current Visit: Yes Status: Acute Assessment & Plan: -ADA diet - On arrival glucose 728, improved to 378 with fluids. -No acidosis; normal AG, lactate, and CO2. -Contributing to pseudohyponatremia and increased skin-infection risk. -Continue IVF -Start basal-bolus insulin regimen with correction scale. -Last A1c 9.98 in December -Obtain A1c- counseled on good glycemic control for wound healing 06/06: -A1c at 12.39- uncontrolled -Discussed importance of glycemic control for wound healing -Add mealtime insulin 5 units with moderate SSI -continue glargine VTE: SCD for now due to surgical intervention PPI: Protonix Dispo: 2-3 days Code status: Full code Plan of care time spent > 45 mins Code(s): E11.621 - TYPE 2 DIABETES MELLITUS WITH FOOT ULCER; L97.509 - NON- PRESSURE CHRONIC ULCER OTH PRT UNSP FOOT W UNSP SEVERITY (2) UTI (urinary tract infection) Current Visit: Yes Status: Acute Code(s): N39.0 - URINARY TRACT INFECTION, SITE NOT SPECIFIED (3) HLD (hyperlipidemia) Current Visit: Yes Status: Acute Code(s): E78.5 - HYPERLIPIDEMIA, UNSPECIFIED (4) Normocytic anemia Current Visit: Yes Status: Acute Code(s): D64.9 - ANEMIA, UNSPECIFIED (5) Pseudohyponatremia Current Visit: Yes Status: Acute Code(s): R79.89 - OTHER SPECIFIED ABNORMAL FINDINGS OF BLOOD CHEMISTRY (6) Diabetes mellitus with hyperglycemia Current Visit: Yes Status: Acute Code(s): E11.65 - TYPE 2 DIABETES MELLITUS WITH HYPERGLYCEMIA
[2025-06-06] MEDS: Protonix 40MG Tablet PO SCH (08:38)
[2025-06-06] MEDS: VANCOMYCIN 1 GRAM/200 ML BAG 1 GM/200 ML PIGGYBACK IV SCH (08:57)
[2025-06-06] MEDS: HUMALOG SQ PRN ×2 (12:33→17:25)
[2025-06-06] MEDS: HUMALOG SQ SCH ×2 (12:33→17:25)
[2025-06-07 04:31] LABS: BASOPHIL % 1.2 % (0.2-1.2); Basophil (Absolute #) 0.06 x10^3/uL (0.01-0.08); Eosinophil (Absolute #) 0.30 x10^3/uL (0.04-0.54); Hematocrit 33.7 % (40.1-51.0); Hemoglobin 11.2 g/dL (13.7-17.5); IMMATURE GRAN # 0.04 x10^3u/L (0.001-0.031); IMMATURE GRAN % 0.8 % (0.001-0.429); Lymphocyte (Absolute #) 1.39 x10^3/uL (1.32-3.57); Mean Corpuscular Hemoglobin 28.4 pg (25.7-32.2); Mean Corpuscular Hgb Concent. 33.2 g/dL (32.3-36.5); Monocyte (Absolute #) 0.49 x10^3/uL (0.30-0.82); NUCLEATED RBC # 0.00 x10^3u/L (0.00-0.012); NUCLEATED RBC % 0.0 % (0.00-0.2); Platelet Count 158 x10^3/uL (163-337); Red Blood Count 3.95 x10^6/uL (4.63-6.08); White Blood Count 4.9 x10^3/uL (4.23-9.07)
[2025-06-07 04:47] LABS: Calcium 8.3 mg/dL (8.4-10.2); Carbon Dioxide 26.0 mmol/L (22-30); Creatinine 1 0.78 mg/dL (0.66-1.25); EST GLOMERULAR FILTRATION RATE 105.3 ML/MIN; Glucose 318.0 mg/dL (74-106); Potassium 4.5 mmol/L (3.5-5.1); SGOT/AST 25.0 U/L (17-59); SGPT/ALT 18.0 U/L (0-50); Total Protein 6.6 g/dL (6.3-8.2)
--- NOTE | 2025-06-07 10:50 | PCM.NOTE ---
Date and Time: 06/07/25 1040 Subjective Assessment: Mr.SOWDERS ARORA is a 55 year old male with a pmhx of insulin-dependent type 2 diabetes and hyperlipidemia who presented on 06-05-25 for evaluation of rapidly progressive bilateral foot blistering and erythema. He reports waking up with severe blister formation involving all toes of the left foot, accompanied by erythema extending to the midfoot and an additional blister at the left ankle. He notes a smaller blister on the right great toe along the medial aspect. He denies any recent trauma, new footwear, chemical exposures, mora, or systemic symptoms such as fever or chills. Pain is described as a constant sharp sensation, minimal at rest but escalating to severe intensity with weight- bearing. He reports no numbness or new sensory deficit. Examination demonstrated intact distal pulses, normal strength, and preserved sensation bilaterally, with left-sided erythema more prominent than the right. Denies fever,cough, sob, cp, abdominal pain, DIAZ, dizziness, N/V/D. Vital signs were stable on arrival. Lab findings remarkable for normocytic anemia with hemoglobin 12.8, marked hyperglycemia with glucose 728 improving to 378 following fluids, and pseudohyponatremia with sodium 128 in the setting of severe hyperglycemia. No acidosis was present; carbon dioxide, anion gap, and lactic acid were all within normal limits. Inflammatory markers were notable for elevated ESR 75 and procalcitonin 0.183. Alk phos was elevated at 166. Urinalysis demonstrated heavy glucosuria greater than 1000, trace leukocyte esterase, 2150 WBCs, and bacteria on microscopy.CT imaging of the right lower extremity showed degenerative changes with a calcaneal spur, soft tissue edema around the foot, and swelling involving the right fifth metatarsophalangeal joint without lytic or sclerotic lesions. CT of the left lower extremity demonstrated similar degenerative changes and calcaneal spur, with more significant soft tissue edema, swelling involving the left metatarsophalangeal joint, and associated joint effusion. Findings raised concern for deep soft- tissue infection; MRI was recommended but is unavailable at this facility over the weekend. Dr. Haynes (Podiatry) reviewed the case and is evaluating for possible operative washout . Empiric treatment with vancomycin and Zosyn has been initiated. Podiatry performed bedside debridement with recommendations for continued monitoring for progression of blistering, erythema, crepitus, or systemic signs. Maintain strict glycemic control; continue IV fluids as needed. Proceed with MRI when available for further evaluation of deep soft-tissue or osseous involvement. Possible operative washout depending on clinical course. Elevation, offloading, and wound protection of affected areas. 06/06: Met with patient bedside. He endorses persistent but improved bilateral foot pain, now rating it 2/10 with current therapy. He denies fever, chills, nausea, vomiting, chest pain, shortness of breath, dizziness, or new sensory changes. He is aware of and agrees with the plan to continue IV antibiotics and proceed with MRI on Saturday when available. He mentions mild fatigue but has no other new complaints. He was informed of his low blood pressure this morning but reports no lightheadedness or symptoms associated with it. 06/07/25: No overnight events. Endorses no pain to BLE. No complaints this morning. Discussed case with Dr. Haynes. Plan for MRI of the LLE today and plan pending results. Continue Vanc/Zosyn for now pending final culture results of Left foot. Ucult showing staphylococcus epidermidis and right great toe culture with enterobacter clocae complex. Denies fever,cough, sob, cp, abdominal pain, DIAZ, dizziness, N/V/D. - Review of Systems Constitutional: No Symptoms Eyes: No Symptoms Ears, Nose, & Throat: No Symptoms Respiratory: No Symptoms Cardiac: No Symptoms Abdominal/Gastrointestinal: No Symptoms Genitourinary Symptoms: No Symptoms Musculoskeletal: No Symptoms Skin: Cellulitis, Skin Lesions Neurological: No Symptoms Psychological: No Symptoms Endocrine: No Symptoms Hematologic/Lymphatic: No Symptoms Objective Exam General Appearance: no apparent distress Neurologic Exam: alert, oriented x 3, cooperative Skin Exam: other (Left foot covered in surgical dressing CDI; Right foot with bandage- shadow drainage) Wound Assessment: Skin/Wound Assessment Wound/Incision Assessment Start: 06/05/25 16:30 Text: Status: Active Freq: Q6H Protocol: Document 06/07/25 09:40 DS (Rec: 06/07/25 09:40 DS [id number]) Wound/Incision Assessment Right Medial Toe Wound Assessment Shift Assessment Wound Type blister s/p I&D Wound Stage Non Pressure Wound Dressing Status Changed Drainage Amount Minimal Drainage Description Serosanguineous Wound Bed Greatest Portion Red (Granulation) Surrounding Tissue [place] Primary Dressing mepilex border Comment dressing change Left Foot Wound Assessment Shift Assessment Wound Type blisters s/p I&D Wound Stage Non Pressure Wound Dressing Status Dry & Intact Primary Dressing mepilex Secondary Dressing Gauze Roll/Wrap Comment bulky dressing CDI - WADE wound Wound Photo Photo Taken No Eye Exam: PERRL Ears, Nose, Throat Exam: normal ENT inspection Neck Exam: normal inspection Lymphatic Exam: adenopathy Respiratory Exam: normal breath sounds, lungs clear Cardiovascular Exam: regular rate/rhythm, normal heart sounds Gastrointestinal/Abdomen Exam: soft, normal bowel sounds Extremity Exam: inflammation, swelling, tenderness Back Exam: normal inspection Male Genitalia Exam: deferred Objective Data Vital Signs: Vital Signs - 24 hr Temp Pulse Resp BP Pulse Ox 06/07/25 07:27 97.9 F 78 16 118/60 95 06/07/25 04:55 97.5 F 72 18 90/44 95 06/07/25 00:00 97.5 F 77 16 103/59 94 L 06/06/25 19:40 97.5 F 89 18 110/60 95 06/06/25 16:00 97.7 F 85 20 120/70 98 06/06/25 11:21 97.6 F 81 18 112/66 99 06/06/25 10:47 92/70 Pain Assessment - Last Documented Pain Intensity 2 Intake and Output: Intake & Output 06/04/25 06/05/25 06/06/25 06/07/25 11:59 11:59 11:59 11:59 Intake Total 2336 5816 Balance 2336 5816 Weight 84.822 kg 85 kg 85.3 kg Lab Results: Lab Results-Last 24 Hours 06/06/25 06/06/25 06/06/25 Range/Units 11:06 16:20 20:52 WBC (4.23-9.07) x10^3/uL RBC (4.63-6.08) x10^6/uL Hgb (13.7-17.5) g/dL Hct (40.1-51.0) % MCV (79.0-92.2) fL MCH (25.7-32.2) pg MCHC (32.3-36.5) g/dL RDW (11.6-14.4) % Plt Count (163-337) x10^3/uL MPV (9.4-12.4) fL Gran % (34.0-67.9) % Immature Gran % (Auto) (0.001-0.429) % Nucleat RBC Rel Count (0.00-0.2) % Eos # (Auto) (0.04-0.54) x10^3/uL Immature Gran # (Auto) (0.001-0.031) x10^3u/L Absolute Lymphs (auto) (1.32-3.57) x10^3/uL Absolute Monos (auto) (0.30-0.82) x10^3/uL Absolute Nucleated RBC (0.00-0.012) x10^3u/L Lymphocytes % (21.8-53.1) % Monocytes % (5.3-12.2) % Eosinophils % (0.8-7.0) % Basophils % (0.2-1.2) % Absolute Granulocytes (1.78-5.38) x10^3/uL Basophils # (0.01-0.08) x10^3/uL Sodium (135-145) mmol/L Potassium (3.5-5.1) mmol/L Chloride (98-107) mmol/L Carbon Dioxide (22-30) mmol/L Anion Gap (5-15) MEQ/L BUN (9-20) mg/dL Creatinine (0.66-1.25) mg/dL Estimated GFR ML/MIN Glucose (74-106) mg/dL POC Glucometer 283 H 325 H 372 H (74 to 106) mg/dL Calcium (8.4-10.2) mg/dL Total Bilirubin (0.2-1.3) mg/dL AST (17-59) U/L ALT (0-50) U/L Alkaline Phosphatase (38-126) U/L Serum Total Protein (6.3-8.2) g/dL Albumin (3.5-5.0) g/dL Vancomycin Trough (10-20) ug/mL 06/07/25 06/07/25 06/07/25 Range/Units 04:10 04:10 07:23 WBC 4.9 (4.23-9.07) x10^3/uL RBC 3.95 L (4.63-6.08) x10^6/uL Hgb 11.2 L (13.7-17.5) g/dL Hct 33.7 L (40.1-51.0) % MCV 85.3 (79.0-92.2) fL MCH 28.4 (25.7-32.2) pg MCHC 33.2 (32.3-36.5) g/dL RDW 13.2 (11.6-14.4) % Plt Count 158 L (163-337) x10^3/uL MPV 10.2 (9.4-12.4) fL Gran % 53.8 (34.0-67.9) % Immature Gran % (Auto) 0.8 H (0.001-0.429) % Nucleat RBC Rel Count 0.0 (0.00-0.2) % Eos # (Auto) 0.30 (0.04-0.54) x10^3/uL Immature Gran # (Auto) 0.04 H (0.001-0.031) x10^3u/L Absolute Lymphs (auto) 1.39 (1.32-3.57) x10^3/uL Absolute Monos (auto) 0.49 (0.30-0.82) x10^3/uL Absolute Nucleated RBC 0.00 (0.00-0.012) x10^3u/L Lymphocytes % 28.2 (21.8-53.1) % Monocytes % 9.9 (5.3-12.2) % Eosinophils % 6.1 (0.8-7.0) % Basophils % 1.2 (0.2-1.2) % Absolute Granulocytes 2.65 (1.78-5.38) x10^3/uL Basophils # 0.06 (0.01-0.08) x10^3/uL Sodium 133 L (135-145) mmol/L Potassium 4.5 D (3.5-5.1) mmol/L Chloride 102 (98-107) mmol/L Carbon Dioxide 26 (22-30) mmol/L Anion Gap 9.0 (5-15) MEQ/L BUN 10 (9-20) mg/dL Creatinine 0.78 (0.66-1.25) mg/dL Estimated GFR 105.3 ML/MIN Glucose 318 H (74-106) mg/dL POC Glucometer 262 H (74 to 106) mg/dL Calcium 8.3 L (8.4-10.2) mg/dL Total Bilirubin 0.60 (0.2-1.3) mg/dL AST 25 (17-59) U/L ALT 18 (0-50) U/L Alkaline Phosphatase 112 (38-126) U/L Serum Total Protein 6.6 (6.3-8.2) g/dL Albumin 3.1 L (3.5-5.0) g/dL Vancomycin Trough (10-20) ug/mL 06/07/25 Range/Units 07:30 WBC (4.23-9.07) x10^3/uL RBC (4.63-6.08) x10^6/uL Hgb (13.7-17.5) g/dL Hct (40.1-51.0) % MCV (79.0-92.2) fL MCH (25.7-32.2) pg MCHC (32.3-36.5) g/dL RDW (11.6-14.4) % Plt Count (163-337) x10^3/uL MPV (9.4-12.4) fL Gran % (34.0-67.9) % Immature Gran % (Auto) (0.001-0.429) % Nucleat RBC Rel Count (0.00-0.2) % Eos # (Auto) (0.04-0.54) x10^3/uL Immature Gran # (Auto) (0.001-0.031) x10^3u/L Absolute Lymphs (auto) (1.32-3.57) x10^3/uL Absolute Monos (auto) (0.30-0.82) x10^3/uL Absolute Nucleated RBC (0.00-0.012) x10^3u/L Lymphocytes % (21.8-53.1) % Monocytes % (5.3-12.2) % Eosinophils % (0.8-7.0) % Basophils % (0.2-1.2) % Absolute Granulocytes (1.78-5.38) x10^3/uL Basophils # (0.01-0.08) x10^3/uL Sodium (135-145) mmol/L Potassium (3.5-5.1) mmol/L Chloride (98-107) mmol/L Carbon Dioxide (22-30) mmol/L Anion Gap (5-15) MEQ/L BUN (9-20) mg/dL Creatinine (0.66-1.25) mg/dL Estimated GFR ML/MIN Glucose (74-106) mg/dL POC Glucometer (74 to 106) mg/dL Calcium (8.4-10.2) mg/dL Total Bilirubin (0.2-1.3) mg/dL AST (17-59) U/L ALT (0-50) U/L Alkaline Phosphatase (38-126) U/L Serum Total Protein (6.3-8.2) g/dL Albumin (3.5-5.0) g/dL Vancomycin Trough 13.37 (10-20) ug/mL Radiology Exams: Radiology Procedures Category Date Time Status LOWER EXTREMITY WO CONTRAST [CT] Stat Exams 06/05/25 10:57 Completed LOWER EXTREMITY WO CONTRAST [CT] Stat Exams 06/05/25 10:58 Completed MRI LOWER EXT W/O CONTRAST [MRI] Routine Exams 06/07/25 07:31 Ordered Medications: Medications Generic Name Dose Route Start Last Admin Trade Name Freq PRN Reason Stop Dose Admin Acetaminophen 650 mg 06/05/25 15:58 Acetaminophen 325 Mg Tablet PO 07/05/25 15:57 Q4H PRN PRN PAIN, FEVER, HEADACHE Hydrocodone Bitart/Acetaminophen 1 tab 06/05/25 15:58 Hydrocodone/Apap 5/325 1 Tab Tablet PO 06/10/25 15:57 Q4H PRN PRN PAIN Hydromorphone HCl 0.5 mg 06/05/25 15:58 Hydromorphone 1 Mg/1ml Inj IV 06/10/25 15:57 Q4H PRN PRN PAIN Sodium Chloride 1,000 mls @ 100 mls/hr 06/05/25 16:00 06/06/25 21:55 Sodium Chloride 0.9% 1000 Ml IV 07/05/25 15:59 100 mls/hr .Q10H OFELIA Administration Piperacillin Sod/Tazobactam 100 mls @ 200 mls/hr 06/05/25 18:00 06/07/25 05:02 Sod 3.375 gm/ Sodium Chloride IV 06/08/25 17:59 200 mls/hr Q6HT OFELIA Administration Vancomycin HCl 1 gm in 200 mls @ 125 mls/hr 06/06/25 08:00 06/07/25 07:15 Vancomycin 1 Gram/200 Ml Bag IV 07/06/25 07:59 125 mls/hr Q8H OFELIA Administration Insulin Glargine 25 unit 06/05/25 22:00 06/07/25 09:28 Insulin Glargine 1 Unit SQ 07/05/25 21:59 25 unit BID OFELIA Administration Insulin Human Lispro 0 unit 06/06/25 16:37 06/06/25 21:01 Insulin Lispro 1 Unit SQ 07/06/25 16:36 15 unit UD PRN Administration HYPERGLYCEMIA Insulin Human Lispro 8 unit 06/06/25 16:37 06/07/25 07:32 Insulin Lispro 1 Unit SQ 07/06/25 11:59 8 unit TIDWM OFELIA Administration Ondansetron HCl 4 mg 06/05/25 15:58 Ondansetron Hcl 4 Mg/2 Ml Vial IV 07/05/25 15:57 Q6H PRN PRN NAUSEA/VOMITING Pantoprazole Sodium 40 mg 06/06/25 10:00 06/07/25 09:29 Protonix (Pantoprazole) 40 Mg Tablet PO 07/06/25 09:59 40 mg DAILY OFELIA Administration Discontinued Medications Generic Name Dose Route Start Last Admin Trade Name Freq PRN Reason Stop Dose Admin Device 1 06/07/25 07:30 Therapuetic Drug Level Monitor Each IJ 06/07/25 07:31 1XONLY ONE Sodium Chloride 1,000 mls @ 999 mls/hr 06/05/25 10:51 06/05/25 12:10 Sodium Chloride 0.9% 1000 Ml IV 06/05/25 11:51 Infused .Q1H1M STA Infusion Sodium Chloride Confirm 06/05/25 11:06 Sodium Chloride 0.9% 1000 Ml Administered 06/05/25 11:07 Dose 1,000 mls @ ud .ROUTE .STK-MED ONE Piperacillin Sod/Tazobactam 100 mls @ 200 mls/hr 06/05/25 11:08 06/05/25 11:53 Sod 4.5 gm/ Sodium Chloride IV 06/05/25 11:37 Infused STAT STA Infusion Vancomycin HCl 1.25 gm in 250 mls @ 150 mls/hr 06/05/25 11:15 06/05/25 14:01 Vancomycin 1.25 Gm/250 Ml Bag IV 06/08/25 11:14 Infused Q12H OFELIA Infusion Sodium Chloride Confirm 06/05/25 11:11 Sodium Chloride 0.9% Administered 06/05/25 11:12 Dose 100 mls @ ud .ROUTE .STK-MED ONE Sodium Chloride 1,000 mls @ 999 mls/hr 06/05/25 12:24 06/05/25 13:43 Sodium Chloride 0.9% 1000 Ml IV 06/05/25 13:24 Infused .Q1H1M STA Infusion Sodium Chloride Confirm 06/05/25 12:27 Sodium Chloride 0.9% 1000 Ml Administered 06/05/25 12:28 Dose 1,000 mls @ ud .ROUTE .STK-MED ONE Sodium Chloride Confirm 06/05/25 17:43 Sodium Chloride 0.9% Administered 06/05/25 17:44 Dose 100 mls @ ud .ROUTE .STK-MED ONE Sodium Chloride Confirm 06/05/25 23:35 Sodium Chloride 0.9% Administered 06/05/25 23:36 Dose 100 mls @ ud .ROUTE .STK-MED ONE Sodium Chloride Confirm 06/06/25 05:14 Sodium Chloride 0.9% Administered 06/06/25 05:15 Dose 100 mls @ ud .ROUTE .STK-MED ONE Insulin Glargine 25 unit 06/05/25 16:50 06/05/25 16:56 Insulin Glargine 1 Unit SQ 06/05/25 16:51 25 unit ONCE ONE Administration Insulin Human Lispro 0 unit 06/05/25 15:58 06/06/25 08:37 Insulin Lispro 1 Unit SQ 07/05/25 15:57 10 unit UD PRN Administration HYPERGLYCEMIA Insulin Human Lispro 0 unit 06/06/25 09:04 06/06/25 12:33 Insulin Lispro 1 Unit SQ 07/06/25 09:03 7 unit UD PRN Administration HYPERGLYCEMIA Insulin Human Lispro 5 unit 06/06/25 12:00 06/06/25 12:33 Insulin Lispro 1 Unit SQ 07/06/25 11:59 5 unit TIDWM OFELIA Administration Non-Formulary Medication 1 each 06/05/25 16:00 Pharmacy Dose Request: Vancomycin 1 Each IV 07/05/25 15:59 ONCALLTOOR OFELIA Piperacillin Sod/Tazobactam Sod Confirm 06/05/25 11:11 Piperacillin/Tazobactam Sodium 4.5 Gm Vial Administered 06/05/25 11:12 Dose 4.5 gm IV .STK-MED ONE Piperacillin Sod/Tazobactam Sod Confirm 06/05/25 17:43 Piperacillin/Tazobactam Sodium 3.375 Gm Vial Administered 06/05/25 17:44 Dose 3.375 gm IV .STK-MED ONE Piperacillin Sod/Tazobactam Sod Confirm 06/05/25 23:35 Piperacillin/Tazobactam Sodium 3.375 Gm Vial Administered 06/05/25 23:36 Dose 3.375 gm IV .STK-MED ONE Piperacillin Sod/Tazobactam Sod Confirm 06/06/25 05:14 Piperacillin/Tazobactam Sodium 3.375 Gm Vial Administered 06/06/25 05:15 Dose 3.375 gm IV .STK-MED ONE Assessment/Plan (1) Diabetic foot ulcer Current Visit: Yes Status: Acute Qualifiers: Diabetic foot ulcer location: unspecified part of foot Diabetes mellitus type: other specified (including JUANCHO) Laterality: unspecified laterality Non-pressure ulcer stage: unspecified non-pressure ulcer stage Qualified Code(s): E13.621 - Other specified diabetes mellitus with foot ulcer; L97.509 - Non-pressure chronic ulcer of other part of unspecified foot with unspecified severity Assessment & Plan: -Rapid onset blistering involving all left toes with erythema to midfoot and additional ankle blister; right great toe blister medially. -CT bilateral LEs demonstrating subcutaneous edema; left with MTP joint effusion suggesting deeper involvement. -Elevated ESR and procalcitonin ; WBC WNL -vancomycin + Zosyn started in ED, continue -Podiatry consulted; surgical washout under consideration. -Strict hon-nrxylp-zizycjd on the left, limited weight-bearing right as tolerated pending podiatry eval -obtain MRI when available and venous/arterial US -Monitor for compartment syndrome, necrotizing infection, or progression of erythema. -Wound, blood cultures pending -Stefan borders of erythema and monitor progression. -Pain control 06/06: -S/P debridement day 1- patient doing well -Reviewed podiatry documentation; agree with plan -Continue IV vancomycin + piperacillin-tazobactam pending clinical course. -Monitor for progression of erythema, blistering, crepitus, systemic signs. -Maintain strict elevation, offloading, and wound protection. -Podiatry following; continue bedside wound care per recommendations. -MRI scheduled for Saturday when available to assess for deep tissue or osseous involvement possible washout pending results 06/07: -MRI pending -continue vanc/zosyn -Culture pending for Left foot -Right great toe culture with enterobacter clocae -Podiatry following Code(s): E11.621 - TYPE 2 DIABETES MELLITUS WITH FOOT ULCER; L97.509 - NON- PRESSURE CHRONIC ULCER OTH PRT UNSP FOOT W UNSP SEVERITY (2) UTI (urinary tract infection) Current Visit: Yes Status: Acute Assessment & Plan: -UA suspicious for UTI, culture pending - will follow - continue vanc/zosyn as above 06/07: -Ucult with staphylococcus epidermidis -continue vanc/zosyn for now will target when final wound culture back on left foot Code(s): N39.0 - URINARY TRACT INFECTION, SITE NOT SPECIFIED (3) HLD (hyperlipidemia) Current Visit: Yes Status: Acute Assessment & Plan: -Per patient no longer on statin therapy Code(s): E78.5 - HYPERLIPIDEMIA, UNSPECIFIED (4) Normocytic anemia Current Visit: Yes Status: Acute Assessment & Plan: -Hgb stable at 12.8- add iron studies-trend 06/07: -Hgb stable at 11.2 Code(s): D64.9 - ANEMIA, UNSPECIFIED (5) Pseudohyponatremia Current Visit: Yes Status: Acute Assessment & Plan: -Sodium level 128 in the setting of hyperglycemia -Corrects toward normal as glucose treated. 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 -Repeat BMP after glucose < 250 to reassess true sodium level. 06/06: -Sodium reviewed and has improved to 133 -continue gentle hydration 06/07: -Sodium level at 133- in the setting of hyperglycemia- adjustments made to insulin- continue to monitor -DC fluids Code(s): R79.89 - OTHER SPECIFIED ABNORMAL FINDINGS OF BLOOD CHEMISTRY (6) Diabetes mellitus with hyperglycemia Current Visit: Yes Status: Acute Assessment & Plan: -ADA diet - On arrival glucose 728, improved to 378 with fluids. -No acidosis; normal AG, lactate, and CO2. -Contributing to pseudohyponatremia and increased skin-infection risk. -Continue IVF -Start basal-bolus insulin regimen with correction scale. -Last A1c 9.98 in December -Obtain A1c- counseled on good glycemic control for wound healing 06/06: -A1c at 12.39- uncontrolled -Discussed importance of glycemic control for wound healing -Add mealtime insulin 5 units with moderate SSI -continue glargine 06/07: -increase meal time insulin to 8 units with mod dose SSI - continue glargine VTE: SCD for now due to surgical intervention PPI: Protonix Dispo: 2-3 days Code status: Full code Plan of care time spent > 45 mins Code(s): E11.621 - TYPE 2 DIABETES MELLITUS WITH FOOT ULCER; L97.509 - NON- PRESSURE CHRONIC ULCER OTH PRT UNSP FOOT W UNSP SEVERITY (2) UTI (urinary tract infection) Current Visit: Yes Status: Acute Code(s): N39.0 - URINARY TRACT INFECTION, SITE NOT SPECIFIED (3) HLD (hyperlipidemia) Current Visit: Yes Status: Acute Code(s): E78.5 - HYPERLIPIDEMIA, UNSPECIFIED (4) Normocytic anemia Current Visit: Yes Status: Acute Code(s): D64.9 - ANEMIA, UNSPECIFIED (5) Pseudohyponatremia Current Visit: Yes Status: Acute Code(s): R79.89 - OTHER SPECIFIED ABNORMAL FINDINGS OF BLOOD CHEMISTRY (6) Diabetes mellitus with hyperglycemia Current Visit: Yes Status: Acute Code(s): E11.65 - TYPE 2 DIABETES MELLITUS WITH HYPERGLYCEMIA
--- NOTE | 2025-06-07 11:59 | XRAY ---
Indication: Diabetic left foot ulcer. Sagittal, coronal, and axial MRI left mid forefoot performed without contrast using T1, T2, and STIR sequences. Comparison: None Several images/sequences degraded by motion, limiting exam especially all phalanges. Visualized left foot articulation appears anatomic. There is mild diffuse anterior subcutaneous soft tissue swelling/edema. No focal solid/cystic soft tissue mass or abnormal fluid collection. Visualized flexor/extensor mechanism grossly unremarkable. No obvious acute fracture, suspicious bony lesions, or abnormal bone marrow signal. Impression: 1. Motion artifact limits exam. 2. Nonspecific anterior soft tissue swelling/edema. 3. Remaining MRI left foot without contrast grossly negative.
[2025-06-07] MEDS: TROUGH DRUG LEVELS IJ ONE (16:53)
[2025-06-07] MEDS: HUMALOG SQ PRN (22:09)
[2025-06-08 05:01] LABS: BASOPHIL % 0.8 % (0.2-1.2); Basophil (Absolute #) 0.04 x10^3/uL (0.01-0.08); Eosinophil (Absolute #) 0.43 x10^3/uL (0.04-0.54); Hematocrit 35.5 % (40.1-51.0); Hemoglobin 11.6 g/dL (13.7-17.5); IMMATURE GRAN # 0.06 x10^3u/L (0.001-0.031); IMMATURE GRAN % 1.2 % (0.001-0.429); Lymphocyte (Absolute #) 1.33 x10^3/uL (1.32-3.57); Mean Corpuscular Hemoglobin 27.8 pg (25.7-32.2); Mean Corpuscular Hgb Concent. 32.7 g/dL (32.3-36.5); Monocyte (Absolute #) 0.52 x10^3/uL (0.30-0.82); NUCLEATED RBC # 0.00 x10^3u/L (0.00-0.012); NUCLEATED RBC % 0.0 % (0.00-0.2); Platelet Count 172 x10^3/uL (163-337); Red Blood Count 4.17 x10^6/uL (4.63-6.08); White Blood Count 5.2 x10^3/uL (4.23-9.07)
[2025-06-08 05:12] LABS: Calcium 8.8 mg/dL (8.4-10.2); Carbon Dioxide 28.0 mmol/L (22-30); Creatinine 1 0.73 mg/dL (0.66-1.25); EST GLOMERULAR FILTRATION RATE 107.5 ML/MIN; Glucose 303.0 mg/dL (74-106); Potassium 4.4 mmol/L (3.5-5.1); SGOT/AST 26.0 U/L (17-59); SGPT/ALT 19.0 U/L (0-50); Total Protein 6.7 g/dL (6.3-8.2)
[2025-06-08] MEDS: Lantus Insulin SQ SCH (08:34)
[2025-06-08] MEDS: HUMALOG SQ SCH (08:35)
--- NOTE | 2025-06-08 14:03 | PCM.NOTE ---
Date and Time: 06/08/25 5939 Subjective Assessment: 06/08/25: No overnight events. Endorses no pain to BLE. No complaints this morning. MRI of the LLE from yesterday shows soft tissue edema. Awaiting Podiatry recs today. Continue Vanc/Zosyn for now pending final culture results of Left foot. Ucult showing staphylococcus epidermidis and right great toe culture with enterobacter clocae complex. Denies fever,cough, sob, cp, abdominal pain, DIAZ, dizziness, N/V/D. Patient is requesting education for diabetes. A1c is 12.39 and discussed long-term side effects of uncontrolled diabetes. Patient states he has been a diabetic for 2 years and does not do well controlling his diabetes. He would like a referral to an window treatment installer and referral made to Dr. Munguia in [place] upon discharge. Humalog changed to 14 units with meals and Lantus changed to 30 units twice daily. Sodium has improved to 133 as it was 128 on admission. Patient complains of dysuria and will continue IV antibiotics for UTI. Wound culture and blood cultures x 2 are pending. Patient denies any further concerns at this time. - Review of Systems Constitutional: No Fever, No Chills Eyes: No Symptoms Ears, Nose, & Throat: No Symptoms Respiratory: No Cough, No Short Of Breath Cardiac: No Chest Pain, No Edema, No Syncope Abdominal/Gastrointestinal: No Abdominal Pain, No Nausea, No Vomiting, No Diarrhea Genitourinary Symptoms: Dysuria Musculoskeletal: No Back Pain, No Neck Pain Skin: Skin Lesions (LLE wrapped), No Rash Neurological: No Dizziness, No Focal Weakness, No Sensory Changes Psychological: No Symptoms Endocrine: No Symptoms Hematologic/Lymphatic: No Symptoms Immunological/Allergic: No Symptoms Objective Exam General Appearance: no apparent distress, alert Neurologic Exam: alert, oriented x 3, cooperative, normal mood/affect, nml cerebellar function, sensation nml, No motor deficits Skin Exam: normal color, warm, dry Wound Assessment: Skin/Wound Assessment Wound/Incision Assessment Start: 06/05/25 16:30 Text: Status: Active Freq: Q6H Protocol: Document 06/08/25 03:00 MP (Rec: 06/08/25 04:35 MP [id number]) Wound/Incision Assessment Right Medial Toe Wound Assessment Shift Assessment Wound Type blister s/p I&D Wound Stage Non Pressure Wound Dressing Status Changed Drainage [place] Surrounding Tissue [place] Primary Dressing mepilex border Comment dressing C/D/I Left Foot Wound Assessment Shift Assessment Wound Type blisters s/p I&D Dressing Status Dry & Intact Primary Dressing mepilex Secondary Dressing Gauze Roll/Wrap Comment bulky dressing CDI - Wound Photo Photo Taken No Eye Exam: PERRL, EOMI, eyes nml inspection Ears, Nose, Throat Exam: normal ENT inspection, pharynx normal, moist mucous membranes Neck Exam: normal inspection, non-tender, supple, full range of motion Respiratory Exam: normal breath sounds, lungs clear, No respiratory distress Cardiovascular Exam: regular rate/rhythm, normal heart sounds Gastrointestinal/Abdomen Exam: soft, No tenderness, No mass Extremity Exam: normal inspection, normal range of motion, tenderness (LLE wrapped by podiatry) Back Exam: normal inspection, normal range of motion, No CVA tenderness, No vertebral tenderness Male Genitalia Exam: deferred Rectal Exam: deferred Objective Data Vital Signs: Vital Signs - 24 hr Temp Pulse Resp BP Pulse Ox 06/08/25 11:20 97.9 F 96 H 20 88/60 98 06/08/25 07:51 97.9 F 86 18 94/65 97 06/08/25 04:00 97.2 F 81 16 92/54 96 06/08/25 00:00 96.3 F 94 H 16 122/65 97 06/07/25 20:00 96.3 F 94 H 16 122/65 97 06/07/25 15:53 98.0 F 82 16 116/71 99 Pain Assessment - Last Documented Pain Intensity 2 Intake and Output: Intake & Output 06/06/25 06/07/25 06/08/25 06/09/25 11:59 11:59 11:59 11:59 Intake Total 2336 5816 2260 Balance 2336 5816 2260 Weight 85 kg 85.3 kg 85.8 kg Lab Results: Lab Results-Last 24 Hours 06/07/25 06/07/25 06/08/25 Range/Units 16:20 21:33 04:03 WBC 5.2 (4.23-9.07) x10^3/uL RBC 4.17 L (4.63-6.08) x10^6/uL Hgb 11.6 L (13.7-17.5) g/dL Hct 35.5 L (40.1-51.0) % MCV 85.1 (79.0-92.2) fL MCH 27.8 (25.7-32.2) pg MCHC 32.7 (32.3-36.5) g/dL RDW 13.2 (11.6-14.4) % Plt Count 172 (163-337) x10^3/uL MPV 10.5 (9.4-12.4) fL Gran % 54.2 (34.0-67.9) % Immature Gran % (Auto) 1.2 H (0.001-0.429) % Nucleat RBC Rel Count 0.0 (0.00-0.2) % Eos # (Auto) 0.43 (0.04-0.54) x10^3/uL Immature Gran # (Auto) 0.06 H (0.001-0.031) x10^3u/L Absolute Lymphs (auto) 1.33 (1.32-3.57) x10^3/uL Absolute Monos (auto) 0.52 (0.30-0.82) x10^3/uL Absolute Nucleated RBC 0.00 (0.00-0.012) x10^3u/L Lymphocytes % 25.5 (21.8-53.1) % Monocytes % 10.0 (5.3-12.2) % Eosinophils % 8.3 H (0.8-7.0) % Basophils % 0.8 (0.2-1.2) % Absolute Granulocytes 2.83 (1.78-5.38) x10^3/uL Basophils # 0.04 (0.01-0.08) x10^3/uL Sodium (135-145) mmol/L Potassium (3.5-5.1) mmol/L Chloride (98-107) mmol/L Carbon Dioxide (22-30) mmol/L Anion Gap (5-15) MEQ/L BUN (9-20) mg/dL Creatinine (0.66-1.25) mg/dL Estimated GFR ML/MIN Glucose (74-106) mg/dL POC Glucometer 295 H 374 H (74 to 106) mg/dL Calcium (8.4-10.2) mg/dL Total Bilirubin (0.2-1.3) mg/dL AST (17-59) U/L ALT (0-50) U/L Alkaline Phosphatase (38-126) U/L Serum Total Protein (6.3-8.2) g/dL Albumin (3.5-5.0) g/dL 06/08/25 06/08/25 06/08/25 Range/Units 04:03 07:08 11:00 WBC (4.23-9.07) x10^3/uL RBC (4.63-6.08) x10^6/uL Hgb (13.7-17.5) g/dL Hct (40.1-51.0) % MCV (79.0-92.2) fL MCH (25.7-32.2) pg MCHC (32.3-36.5) g/dL RDW (11.6-14.4) % Plt Count (163-337) x10^3/uL MPV (9.4-12.4) fL Gran % (34.0-67.9) % Immature Gran % (Auto) (0.001-0.429) % Nucleat RBC Rel Count (0.00-0.2) % Eos # (Auto) (0.04-0.54) x10^3/uL Immature Gran # (Auto) (0.001-0.031) x10^3u/L Absolute Lymphs (auto) (1.32-3.57) x10^3/uL Absolute Monos (auto) (0.30-0.82) x10^3/uL Absolute Nucleated RBC (0.00-0.012) x10^3u/L Lymphocytes % (21.8-53.1) % Monocytes % (5.3-12.2) % Eosinophils % (0.8-7.0) % Basophils % (0.2-1.2) % Absolute Granulocytes (1.78-5.38) x10^3/uL Basophils # (0.01-0.08) x10^3/uL Sodium 133 L (135-145) mmol/L Potassium 4.4 (3.5-5.1) mmol/L Chloride 99 (98-107) mmol/L Carbon Dioxide 28 (22-30) mmol/L Anion Gap 11.0 (5-15) MEQ/L BUN 9 (9-20) mg/dL Creatinine 0.73 (0.66-1.25) mg/dL Estimated GFR 107.5 ML/MIN Glucose 303 H (74-106) mg/dL POC Glucometer 298 H 352 H (74 to 106) mg/dL Calcium 8.8 (8.4-10.2) mg/dL Total Bilirubin 0.40 (0.2-1.3) mg/dL AST 26 (17-59) U/L ALT 19 (0-50) U/L Alkaline Phosphatase 126 (38-126) U/L Serum Total Protein 6.7 (6.3-8.2) g/dL Albumin 3.2 L (3.5-5.0) g/dL Radiology Exams: Radiology Procedures Category Date Time Status MRI LOWER EXT W/O CONTRAST [MRI] Routine Exams 06/07/25 07:31 Completed Medications: Medications Generic Name Dose Route Start Last Admin Trade Name Freq PRN Reason Stop Dose Admin Acetaminophen 650 mg 06/05/25 15:58 Acetaminophen 325 Mg Tablet PO 07/05/25 15:57 Q4H PRN PRN PAIN, FEVER, HEADACHE Hydrocodone Bitart/Acetaminophen 1 tab 06/05/25 15:58 Hydrocodone/Apap 5/325 1 Tab Tablet PO 06/10/25 15:57 Q4H PRN PRN PAIN Hydromorphone HCl 0.5 mg 06/05/25 15:58 Hydromorphone 1 Mg/1ml Inj IV 06/10/25 15:57 Q4H PRN PRN PAIN Piperacillin Sod/Tazobactam 100 mls @ 200 mls/hr 06/05/25 18:00 06/08/25 12:24 Sod 3.375 gm/ Sodium Chloride IV 06/08/25 17:59 200 mls/hr Q6HT OFELIA Administration Vancomycin HCl 1 gm in 200 mls @ 125 mls/hr 06/06/25 08:00 06/08/25 08:40 Vancomycin 1 Gram/200 Ml Bag IV 07/06/25 07:59 125 mls/hr Q8H OFELIA Administration Insulin Glargine 30 unit 06/08/25 10:00 06/08/25 08:34 Insulin Glargine 1 Unit SQ 07/08/25 09:59 30 unit BID OFELIA Administration Insulin Human Lispro 0 unit 06/07/25 17:08 06/08/25 12:24 Insulin Lispro 1 Unit SQ 07/07/25 17:07 15 unit UD PRN Administration HYPERGLYCEMIA Insulin Human Lispro 14 unit 06/08/25 08:00 06/08/25 12:24 Insulin Lispro 1 Unit SQ 07/08/25 07:59 14 unit TIDWM OFELIA Administration Ondansetron HCl 4 mg 06/05/25 15:58 Ondansetron Hcl 4 Mg/2 Ml Vial IV 07/05/25 15:57 Q6H PRN PRN NAUSEA/VOMITING Pantoprazole Sodium 40 mg 06/06/25 10:00 06/08/25 08:35 Protonix (Pantoprazole) 40 Mg Tablet PO 07/06/25 09:59 40 mg DAILY OFELIA Administration Discontinued Medications Generic Name Dose Route Start Last Admin Trade Name Freq PRN Reason Stop Dose Admin Device 1 06/07/25 07:30 06/07/25 16:53 Therapuetic Drug Level Monitor Each IJ 06/07/25 07:31 1 1XONLY ONE Administration Sodium Chloride 1,000 mls @ 999 mls/hr 06/05/25 10:51 06/05/25 12:10 Sodium Chloride 0.9% 1000 Ml IV 06/05/25 11:51 Infused .Q1H1M STA Infusion Sodium Chloride Confirm 06/05/25 11:06 Sodium Chloride 0.9% 1000 Ml Administered 06/05/25 11:07 Dose 1,000 mls @ ud .ROUTE .STK-MED ONE Piperacillin Sod/Tazobactam 100 mls @ 200 mls/hr 06/05/25 11:08 06/05/25 11:53 Sod 4.5 gm/ Sodium Chloride IV 06/05/25 11:37 Infused STAT STA Infusion Vancomycin HCl 1.25 gm in 250 mls @ 150 mls/hr 06/05/25 11:15 06/05/25 14:01 Vancomycin 1.25 Gm/250 Ml Bag IV 06/08/25 11:14 Infused Q12H OFELIA Infusion Sodium Chloride Confirm 06/05/25 11:11 Sodium Chloride 0.9% Administered 06/05/25 11:12 Dose 100 mls @ ud .ROUTE .STK-MED ONE Sodium Chloride 1,000 mls @ 999 mls/hr 06/05/25 12:24 06/05/25 13:43 Sodium Chloride 0.9% 1000 Ml IV 06/05/25 13:24 Infused .Q1H1M STA Infusion Sodium Chloride Confirm 06/05/25 12:27 Sodium Chloride 0.9% 1000 Ml Administered 06/05/25 12:28 Dose 1,000 mls @ ud .ROUTE .STK-MED ONE Sodium Chloride 1,000 mls @ 100 mls/hr 06/05/25 16:00 06/06/25 21:55 Sodium Chloride 0.9% 1000 Ml IV 07/05/25 15:59 100 mls/hr .Q10H OFELIA Administration Sodium Chloride Confirm 06/05/25 17:43 Sodium Chloride 0.9% Administered 06/05/25 17:44 Dose 100 mls @ ud .ROUTE .STK-MED ONE Sodium Chloride Confirm 06/05/25 23:35 Sodium Chloride 0.9% Administered 06/05/25 23:36 Dose 100 mls @ ud .ROUTE .STK-MED ONE Sodium Chloride Confirm 06/06/25 05:14 Sodium Chloride 0.9% Administered 06/06/25 05:15 Dose 100 mls @ ud .ROUTE .STK-MED ONE Sodium Chloride Confirm 06/07/25 14:59 Sodium Chloride 0.9% 1000 Ml Administered 06/07/25 15:00 Dose 1,000 mls @ ud .ROUTE .STK-MED ONE Insulin Glargine 25 unit 06/05/25 22:00 06/07/25 22:08 Insulin Glargine 1 Unit SQ 07/05/25 21:59 25 unit BID OFELIA Administration Insulin Glargine 25 unit 06/05/25 16:50 06/05/25 16:56 Insulin Glargine 1 Unit SQ 06/05/25 16:51 25 unit ONCE ONE Administration Insulin Human Lispro 0 unit 06/05/25 15:58 06/06/25 08:37 Insulin Lispro 1 Unit SQ 07/05/25 15:57 10 unit UD PRN Administration HYPERGLYCEMIA Insulin Human Lispro 0 unit 06/06/25 09:04 06/06/25 12:33 Insulin Lispro 1 Unit SQ 07/06/25 09:03 7 unit UD PRN Administration HYPERGLYCEMIA Insulin Human Lispro 5 unit 06/06/25 12:00 06/06/25 12:33 Insulin Lispro 1 Unit SQ 07/06/25 11:59 5 unit TIDWM OFELIA Administration Insulin Human Lispro 0 unit 06/06/25 16:37 06/07/25 16:37 Insulin Lispro 1 Unit SQ 07/06/25 16:36 10 unit UD PRN Administration HYPERGLYCEMIA Insulin Human Lispro 8 unit 06/06/25 16:37 06/07/25 16:36 Insulin Lispro 1 Unit SQ 07/06/25 11:59 8 unit TIDWM OFELIA Administration Non-Formulary Medication 1 each 06/05/25 16:00 Pharmacy Dose Request: Vancomycin 1 Each IV 07/05/25 15:59 ONCALLTOOR OFELIA Piperacillin Sod/Tazobactam Sod Confirm 06/05/25 11:11 Piperacillin/Tazobactam Sodium 4.5 Gm Vial Administered 06/05/25 11:12 Dose 4.5 gm IV .STK-MED ONE Piperacillin Sod/Tazobactam Sod Confirm 06/05/25 17:43 Piperacillin/Tazobactam Sodium 3.375 Gm Vial Administered 06/05/25 17:44 Dose 3.375 gm IV .STK-MED ONE Piperacillin Sod/Tazobactam Sod Confirm 06/05/25 23:35 Piperacillin/Tazobactam Sodium 3.375 Gm Vial Administered 06/05/25 23:36 Dose 3.375 gm IV .STK-MED ONE Piperacillin Sod/Tazobactam Sod Confirm 06/06/25 05:14 Piperacillin/Tazobactam Sodium 3.375 Gm Vial Administered 06/06/25 05:15 Dose 3.375 gm IV .STK-MED ONE Multi-Disciplinary Progress Notes: Multi-Disciplinary Progress Notes 06/08/25 10:05 Case Management Note by Una Hill S/W PATIENT AND HE CONTINUES TO DENY ANY NEEDS FOR DC. STILL PLANS TO RETURN TO HIS NEICE'S HOME UPON DC AND SAYS THAT SHE CAN DO DRESSING CHANGES IF NEEDED. WILL CHECK WITH MD ABOUT DRESSING CHANGES PRIOR TO DC. Initialized on 06/08/25 10:05 - END OF NOTE Assessment/Plan (1) Diabetic foot ulcer Current Visit: Yes Status: Acute Qualifiers: Diabetic foot ulcer location: unspecified part of foot Diabetes mellitus type: other specified (including JUANCHO) Laterality: unspecified laterality Non-pressure ulcer stage: unspecified non-pressure ulcer stage Qualified Code(s): E13.621 - Other specified diabetes mellitus with foot ulcer; L97.509 - Non-pressure chronic ulcer of other part of unspecified foot with unspecified severity Assessment & Plan: - Pending podiatry recs today - BC x2 pending negative - S/P debridement POD #3 - LLE wrapped by podiatry - MRI reviewed- + soft tissue edema - CT LLE + soft tissue edema - WC right big toe + enterobactor - WC left 2nd toe- negative - Continue vanocomycin and zosyn - CBC, CMP reviewed Code(s): E11.621 - TYPE 2 DIABETES MELLITUS WITH FOOT ULCER; L97.509 - NON- PRESSURE CHRONIC ULCER OTH PRT UNSP FOOT W UNSP SEVERITY (2) Normocytic anemia Current Visit: Yes Status: Acute Assessment & Plan: - Hgb 11.6- trend - Iron panel reviewed Code(s): D64.9 - ANEMIA, UNSPECIFIED (3) UTI (urinary tract infection) Current Visit: Yes Status: Acute Qualifiers: Urinary tract infection type: site unspecified Hematuria presence: without hematuria Qualified Code(s): N39.0 - Urinary tract infection, site not specified Assessment & Plan: - + dysuria with hyperglycemia - Continue IV antibiotics - UA reviewed - UC + Staph epidermidis- contaminate Code(s): N39.0 - URINARY TRACT INFECTION, SITE NOT SPECIFIED (4) HLD (hyperlipidemia) Current Visit: Yes Status: Chronic Assessment & Plan: - Lipid panel pending - Per DM guidelines pt should be on a statin Code(s): E78.5 - HYPERLIPIDEMIA, UNSPECIFIED (5) Diabetes mellitus with hyperglycemia Current Visit: Yes Status: Chronic Assessment & Plan: - Carb consistent diet - A1C 12.39- uncontrolled - Accuchecks AC/HS - Humalog 14 units with meals, Lantus 30 units BID, S/ S humlaog - Discussed importance of glycemic control for wound healing - Nutrition consult requested by pt. Code(s): E11.65 - TYPE 2 DIABETES MELLITUS WITH HYPERGLYCEMIA (6) Pseudohyponatremia Current Visit: Yes Status: Resolved Assessment & Plan: - Resolved - 2:2 hyperglycemia VTE: SCD for now due to surgical intervention PPI: Protonix Dispo: pending podiatry recs Code status: Full code Next of Kin: Dayanna Stone [phone] Plan of care time spent > 45 mins Code(s): R79.89 - OTHER SPECIFIED ABNORMAL FINDINGS OF BLOOD CHEMISTRY
[2025-06-09 05:21] LABS: Hematocrit 37.7 % (40.1-51.0); Hemoglobin 12.3 g/dL (13.7-17.5); Mean Corpuscular Hemoglobin 28.0 pg (25.7-32.2); Mean Corpuscular Hgb Concent. 32.6 g/dL (32.3-36.5); Platelet Count 212 x10^3/uL (163-337); Red Blood Count 4.40 x10^6/uL (4.63-6.08); White Blood Count 6.9 x10^3/uL (4.23-9.07)
[2025-06-09 05:36] LABS: Calcium 8.8 mg/dL (8.4-10.2); Carbon Dioxide 27.0 mmol/L (22-30); Creatinine 1 0.7 mg/dL (0.66-1.25); EST GLOMERULAR FILTRATION RATE 108.8 ML/MIN; Glucose 222.0 mg/dL (74-106); Potassium 4.1 mmol/L (3.5-5.1); SGOT/AST 30.0 U/L (17-59); SGPT/ALT 23.0 U/L (0-50); Total Protein 7.3 g/dL (6.3-8.2)
[2025-06-09 05:53] LABS: Cholesterol 173.0 mg/dL (50-200); LDL, DIRECT 109.0 mg/dL (30-100); TRIGLYCERIDE 94.0 mg/dL (30-150)
--- NOTE | 2025-06-09 10:29 | PCM.DS ---
Discharge Summary Date of Admission: 06/05/25 14:50 Date of Discharge: 06/09/25 Admitting Physician: ALLEN WEBER MD Consults: Consults on Case 06/08/25 13:57 Nutritional Consult ROUTINE Primary Care Provider: CAREN GARZA Allergies Allergies No Known Drug Allergies Allergy (Verified 06/05/25 10:57) Hospital Summary - Hospital Course Hospital Course: 06/08/25: No overnight events. Endorses no pain to BLE. No complaints this morning. MRI of the LLE from yesterday shows soft tissue edema. Awaiting Podiatry recs today. Continue Vanc/Zosyn for now pending final culture results of Left foot. Ucult showing staphylococcus epidermidis and right great toe culture with enterobacter clocae complex. Denies fever,cough, sob, cp, abdominal pain, DIAZ, dizziness, N/V/D. Patient is requesting education for diabetes. A1c is 12.39 and discussed long-term side effects of uncontrolled diabetes. Patient states he has been a diabetic for 2 years and does not do well controlling his diabetes. He would like a referral to an facility practice specialist and referral made to Dr. Bose in [place] upon discharge. Humalog changed to 14 units with meals and Lantus changed to 30 units twice daily. Sodium has improved to 133 as it was 128 on admission. Patient complains of dysuria and will continue IV antibiotics for UTI. Wound culture and blood cultures x 2 are pending. Patient denies any further concerns at this time. 06/09/25 Patient resting in bed. He complains of no pain or any concerns. Labs overall nonconcerning. Discussed patient case with podiatry today and he said that he can D/C outpatient with p.o. antibiotics and follow-up in 1 to 2 weeks with him. Discussed A1c again and to try to keep glucose well-controlled to aid in healing of wound of foot. Patient to follow-up with endocrinology outpatient as well as PCP for further evaluation and care. Patient denies any further concerns at this time. - Vitals & Intake/Output Vital Signs: Vital Signs Temperature 98.3 F 06/09/25 07:34 Pulse Rate 84 06/09/25 07:34 Respiratory Rate 18 06/09/25 07:34 Blood Pressure 106/63 06/09/25 07:34 O2 Sat by Pulse Oximetry 96 06/09/25 07:34 Intake & Output: Intake & Output 06/06/25 06/07/25 06/08/25 06/09/25 11:59 11:59 11:59 11:59 Intake Total 2336 5816 2260 3209 Balance 2336 5816 2260 3205 Weight 85 kg 85.3 kg 85.8 kg 85.4 kg - Lab Result Diagrams: 06/09/25 04:25 06/09/25 04:25 Lab Results-Last 24 Hrs: Lab Results-Last 24 Hours 06/08/25 06/08/25 06/08/25 Range/Units 11:00 16:12 21:23 WBC (4.23-9.07) x10^3/uL RBC (4.63-6.08) x10^6/uL Hgb (13.7-17.5) g/dL Hct (40.1-51.0) % MCV (79.0-92.2) fL MCH (25.7-32.2) pg MCHC (32.3-36.5) g/dL RDW (11.6-14.4) % Plt Count (163-337) x10^3/uL MPV (9.4-12.4) fL Sodium (135-145) mmol/L Potassium (3.5-5.1) mmol/L Chloride (98-107) mmol/L Carbon Dioxide (22-30) mmol/L Anion Gap (5-15) MEQ/L BUN (9-20) mg/dL Creatinine (0.66-1.25) mg/dL Estimated GFR ML/MIN Glucose (74-106) mg/dL POC Glucometer 352 H 182 H 252 H (74 to 106) mg/dL Calcium (8.4-10.2) mg/dL Total Bilirubin (0.2-1.3) mg/dL AST (17-59) U/L ALT (0-50) U/L Alkaline Phosphatase (38-126) U/L Serum Total Protein (6.3-8.2) g/dL Albumin (3.5-5.0) g/dL Triglycerides (30-150) mg/dL Cholesterol (50-200) mg/dL LDL Cholesterol (30-100) mg/dL HDL Cholesterol (40-60) mg/dL Heart Disease Risk Ratio 06/09/25 06/09/25 06/09/25 Range/Units 04:25 04:25 04:25 WBC 6.9 (4.23-9.07) x10^3/uL RBC 4.40 L (4.63-6.08) x10^6/uL Hgb 12.3 L (13.7-17.5) g/dL Hct 37.7 L (40.1-51.0) % MCV 85.7 (79.0-92.2) fL MCH 28.0 (25.7-32.2) pg MCHC 32.6 (32.3-36.5) g/dL RDW 13.4 (11.6-14.4) % Plt Count 212 (163-337) x10^3/uL MPV 10.3 (9.4-12.4) fL Sodium 135 (135-145) mmol/L Potassium 4.1 (3.5-5.1) mmol/L Chloride 99 (98-107) mmol/L Carbon Dioxide 27 (22-30) mmol/L Anion Gap 12.7 (5-15) MEQ/L BUN 10 (9-20) mg/dL Creatinine 0.70 (0.66-1.25) mg/dL Estimated GFR 108.8 ML/MIN Glucose 222 H (74-106) mg/dL POC Glucometer (74 to 106) mg/dL Calcium 8.8 (8.4-10.2) mg/dL Total Bilirubin 0.40 (0.2-1.3) mg/dL AST 30 (17-59) U/L ALT 23 (0-50) U/L Alkaline Phosphatase 133 H (38-126) U/L Serum Total Protein 7.3 (6.3-8.2) g/dL Albumin 3.5 (3.5-5.0) g/dL Triglycerides 94 (30-150) mg/dL Cholesterol 173 (50-200) mg/dL LDL Cholesterol 109 H (30-100) mg/dL HDL Cholesterol 52 (40-60) mg/dL Heart Disease Risk Ratio 3.0 06/09/25 Range/Units 07:21 WBC (4.23-9.07) x10^3/uL RBC (4.63-6.08) x10^6/uL Hgb (13.7-17.5) g/dL Hct (40.1-51.0) % MCV (79.0-92.2) fL MCH (25.7-32.2) pg MCHC (32.3-36.5) g/dL RDW (11.6-14.4) % Plt Count (163-337) x10^3/uL MPV (9.4-12.4) fL Sodium (135-145) mmol/L Potassium (3.5-5.1) mmol/L Chloride (98-107) mmol/L Carbon Dioxide (22-30) mmol/L Anion Gap (5-15) MEQ/L BUN (9-20) mg/dL Creatinine (0.66-1.25) mg/dL Estimated GFR ML/MIN Glucose (74-106) mg/dL POC Glucometer 218 H (74 to 106) mg/dL Calcium (8.4-10.2) mg/dL Total Bilirubin (0.2-1.3) mg/dL AST (17-59) U/L ALT (0-50) U/L Alkaline Phosphatase (38-126) U/L Serum Total Protein (6.3-8.2) g/dL Albumin (3.5-5.0) g/dL Triglycerides (30-150) mg/dL Cholesterol (50-200) mg/dL LDL Cholesterol (30-100) mg/dL HDL Cholesterol (40-60) mg/dL Heart Disease Risk Ratio Micro Results-Entire Visit: Microbiology 06/05/25 11:26 Wound Culture - Final Foot - Left Enterobacter Clocae Complex 06/07/25 07:55 Wound Culture - Preliminary Toe - L Second ORGANISMS ISOLATED ARE CONSISTENT WITH NORMAL SKIN ARTIE MODERATE GROWTH, NO PREDOMINANT ORGANISM 06/05/25 11:10 Wound Culture - Final Skin - R Big (Greater) Enterobacter Clocae Complex 06/05/25 11:26 Urine Culture - Final Clean Catch Midstream Staphylococcus Epidermidis 06/05/25 11:10 Blood Culture - Preliminary Blood 06/05/25 11:29 Blood Culture - Preliminary Blood Accuchecks Date 06/09/25 Date 06/08/25 Date 06/08/25 - Procedures and Test Procedures and Tests throughout Hospitalization: Therapy Orders & Screens 06/05/25 15:58 PT Eval & Treat ( Order) ONCE Reason for Eval:: unsteady gait diabetic foot ulcer Diagnosis: Diabetic foot ulcer with gangrenous changes OT Eval and Treat (MD Order) ONCE Comment: Physician Instructions: Reason For Exam: Diagnosis: Diabetic foot ulcer with gangrenous changes 06/05/25 16:30 OT Screen per Nursing Assess ONCE Comment: Protocol Order Physician Instructions: Greater than 3 points order OT Admission Screening Reason For Exam: Triggered on Admission Diagnosis: Diabetic foot ulcer with gangrenous changes Open Wound/Cellutlitis/Pressure Ulcers: Yes: bilat feet Acute Fx/ORIF/Change in wt bearing status: No Severe MUSCULOSKELETAL pain: No ADL Dysfunction: No Acute CVA w/Hemiparesis/Hemiplegia: No Decreased Functional Mobility/Strength: No Sprain/Strain: No Acute Post-op Mobility Dysfunction: No Total Points: 5 PT Screen per Nursing Assess ONCE Comment: Protocol Order Physician Instructions: Greater than 3 points order PT Admission Screenin Reason For Exam: Triggered on Admission Diagnosis: Diabetic foot ulcer with gangrenous changes Open Wound/Cellutlitis/Pressure Ulcers: Yes: bilat feet Acute Fx/ORIF/Change in wt bearing status: No Severe MUSCULOSKELETAL pain: No ADL Dysfunction: No Acute CVA w/Hemiparesis/Hemiplegia: No Decreased Functional Mobility/Strength: No Sprain/Strain: No Acute Post-op Mobility Dysfunction: No Total Points: 5 Discharge Exam General Appearance: no apparent distress, alert Neurologic Exam: alert, oriented x 3, cooperative, normal mood/affect, nml cerebellar function, sensation nml, No motor deficits Eye Exam: PERRL, EOMI, eyes nml inspection Ears, Nose, Throat Exam: normal ENT inspection, pharynx normal, moist mucous membranes Neck Exam: normal inspection, non-tender, supple, full range of motion Respiratory Exam: normal breath sounds, lungs clear, No respiratory distress Cardiovascular Exam: regular rate/rhythm, normal heart sounds Gastrointestinal/Abdomen Exam: soft, No tenderness, No mass Male Genitalia Exam: deferred Rectal Exam: deferred Back Exam: normal inspection, normal range of motion, No CVA tenderness, No vertebral tenderness Extremity Exam: normal inspection, normal range of motion, other (LLE wrapped) Skin Exam: normal color, warm, dry Wound Assessment: Skin/Wound Assessment Wound/Incision Assessment Start: 06/05/25 16:30 Text: Status: Active Freq: Q6H Protocol: Document 06/09/25 09:00 AR (Rec: 06/09/25 09:21 AR [id number]) Wound/Incision Assessment Right Medial Toe Wound Assessment Shift Assessment Wound Type blister s/p I&D Wound Stage Non Pressure Wound Surrounding Tissue [place] Primary Dressing mepilex border Left Foot Wound Assessment Shift Assessment Wound Type blisters s/p I&D Dressing Status Dry & Intact Primary Dressing mepilex Secondary Dressing Gauze Roll/Wrap Comment dressing CDI Wound Photo Photo Taken No Final Diagnosis/Problem List - Final Discharge Diagnosis/Problem (1) Diabetic foot ulcer Current Visit: Yes Status: Acute Code(s): E11.621 - TYPE 2 DIABETES MELLITUS WITH FOOT ULCER; L97.509 - NON-PRESSURE CHRONIC ULCER OTH PRT UNSP FOOT W UNSP SEVERITY (2) Normocytic anemia Current Visit: Yes Status: Acute Code(s): D64.9 - ANEMIA, UNSPECIFIED (3) UTI (urinary tract infection) Current Visit: Yes Status: Acute Code(s): N39.0 - URINARY TRACT INFECTION, SITE NOT SPECIFIED (4) HLD (hyperlipidemia) Current Visit: Yes Status: Chronic Code(s): E78.5 - HYPERLIPIDEMIA, UNSPECIFIED (5) Diabetes mellitus with hyperglycemia Current Visit: Yes Status: Chronic Code(s): E11.65 - TYPE 2 DIABETES MELLITUS WITH HYPERGLYCEMIA (6) Pseudohyponatremia Current Visit: Yes Status: Resolved Assessment & Plan: (1) Diabetic foot ulcer Current Visit: Yes Status: Acute Qualifiers: Diabetic foot ulcer location: unspecified part of foot Diabetes mellitus type: other specified (including JUANCHO) Laterality: unspecified laterality N on-pressure ulcer stage: unspecified non-pressure ulcer stage Qualified Code(s): E13.621 - Other specified diabetes mellitus with foot ulcer; L97.509 - Non-pressure chronic ulcer of other part of unspecified foot with unspecified severity Assessment & Plan: - Pending podiatry recs today - BC x2 pending negative - S/P debridement POD #3 - LLE wrapped by podiatry - MRI reviewed- + soft tissue edema - CT LLE + soft tissue edema - WC right big toe + enterobactor - WC left 2nd toe- negative - Continue vanocomycin and zosyn - CBC, CMP reviewed 06/09 - D/C with PO antibiotics - CBC, CMP reviewed - OK to d/c per podiatry - Wound care per podiatry recs OP Code(s): E11.621 - TYPE 2 DIABETES MELLITUS WITH FOOT ULCER; L97.509 - NON- PRESSURE CHRONIC ULCER OTH PRT UNSP FOOT W UNSP SEVERITY (2) Normocytic anemia Current Visit: Yes Status: Acute Assessment & Plan: - Hgb 11.6- trend - Iron panel reviewed 06/09 - Hgb 12.3 stable Code(s): D64.9 - ANEMIA, UNSPECIFIED (3) UTI (urinary tract infection) Current Visit: Yes Status: Acute Qualifiers: Urinary tract infection type: site unspecified Hematuria presence: without hematuria Qualified Code(s): N39.0 - Urinary tract infection, site not specified Assessment & Plan: - + dysuria with hyperglycemia - UA reviewed - UC + Staph epidermidis- contaminate - On antibiotics for diabetic foot wound Code(s): N39.0 - URINARY TRACT INFECTION, SITE NOT SPECIFIED (4) HLD (hyperlipidemia) Current Visit: Yes Status: Chronic Assessment & Plan: - Lipid panel reviewed- LDL 109 - Per DM guidelines pt should be on a statin- discuss with PCP OP Code(s): E78.5 - HYPERLIPIDEMIA, UNSPECIFIED (5) Diabetes mellitus with hyperglycemia Current Visit: Yes Status: Chronic Assessment & Plan: - Carb consistent diet - A1C 12.39- uncontrolled - Accuchecks AC/HS - Humalog 14 units with meals, Lantus 30 units BID, S/ S humlaog - Discussed importance of glycemic control for wound healing - Nutrition consult requested by pt. Code(s): E11.65 - TYPE 2 DIABETES MELLITUS WITH HYPERGLYCEMIA (6) Pseudohyponatremia Current Visit: Yes Status: Resolved Assessment & Plan: - Resolved - 2:2 hyperglycemia D/C plan of care time > 37 minutes Code(s): R79.89 - OTHER SPECIFIED ABNORMAL FINDINGS OF BLOOD CHEMISTRY - Discharge Discharge Date: 06/09/25 Disposition: Home, Self-Care Condition: Serious Prescriptions: Continue Insulin Glargine [Lantus Insulin] 25 unit SQ BID Insulin Lispro [Humalog] 0 unit SQ .SLIDING SCALE Instructions: Diabetic retinopathy, Carb counting for adults with diabetes, Low blood sugar in people with diabetes, Diabetes and infections, Hemoglobin A1C tests, Diabetes and diet, Foot care for people with diabetes, Diabetic foot ulcer, Keeping track of your blood sugar Additional Instructions: Wound care per podiatry recommendations. Follow up with: JEANE ANDRES DPM [ACTIVE STAFF, PODIATRY] - 06/21/25 8:30 am PAYAL BOSE [NON-STAFF PHY W/O PRIVILEGES, UNKNOWN] - 06/18/25 10:30 am Referral Note: arrive 10 min early for paperwork, bring ins card/drivers license CAREN GARZA NP [Primary Care Provider, [facility]] - 06/15/25 9:30 am
[2025-06-09 11:30] VITALS: BP 99/58; PULSE 85; RESP 20; TEMP 97.9; O2SAT 97
--- NOTE | 2025-06-09 16:39 | PCM.NOTE ---
Date and Time: 06/09/25 1620 Subjective Assessment: Patient progressing without complication at this time and is ready for discharge Physical Exam - Narrative Narrative Physical Exam: Podiatry Physical Exam Objective Data Vital Signs: Vital Signs - 24 hr Temp Pulse Resp BP Pulse Ox 06/09/25 11:29 97.9 F 85 20 99/58 97 06/09/25 07:34 98.3 F 84 18 106/63 96 06/09/25 03:57 98.9 F 82 16 107/72 96 06/09/25 00:00 97.9 F 83 18 104/60 97 06/08/25 20:00 98.3 F 93 H 16 122/69 97 Pain Assessment - Last Documented Pain Intensity 2 Intake and Output: Intake & Output 06/07/25 06/08/25 06/09/25 06/10/25 11:59 11:59 11:59 11:59 Intake Total 5816 2260 3209 480 Balance 5816 2260 3209 480 Weight 85.3 kg 85.8 kg 85.4 kg Lab Results: Lab Results-Last 24 Hours 06/08/25 06/09/25 06/09/25 Range/Units 21:23 04:25 04:25 WBC 6.9 (4.23-9.07) x10^3/uL RBC 4.40 L (4.63-6.08) x10^6/uL Hgb 12.3 L (13.7-17.5) g/dL Hct 37.7 L (40.1-51.0) % MCV 85.7 (79.0-92.2) fL MCH 28.0 (25.7-32.2) pg MCHC 32.6 (32.3-36.5) g/dL RDW 13.4 (11.6-14.4) % Plt Count 212 (163-337) x10^3/uL MPV 10.3 (9.4-12.4) fL Sodium (135-145) mmol/L Potassium (3.5-5.1) mmol/L Chloride (98-107) mmol/L Carbon Dioxide (22-30) mmol/L Anion Gap (5-15) MEQ/L BUN (9-20) mg/dL Creatinine (0.66-1.25) mg/dL Estimated GFR ML/MIN Glucose (74-106) mg/dL POC Glucometer 252 H (74 to 106) mg/dL Calcium (8.4-10.2) mg/dL Total Bilirubin (0.2-1.3) mg/dL AST (17-59) U/L ALT (0-50) U/L Alkaline Phosphatase (38-126) U/L Serum Total Protein (6.3-8.2) g/dL Albumin (3.5-5.0) g/dL Triglycerides 94 (30-150) mg/dL Cholesterol 173 (50-200) mg/dL LDL Cholesterol 109 H (30-100) mg/dL HDL Cholesterol 52 (40-60) mg/dL Heart Disease Risk Ratio 3.0 06/09/25 06/09/25 06/09/25 Range/Units 04:25 07:21 11:06 WBC (4.23-9.07) x10^3/uL RBC (4.63-6.08) x10^6/uL Hgb (13.7-17.5) g/dL Hct (40.1-51.0) % MCV (79.0-92.2) fL MCH (25.7-32.2) pg MCHC (32.3-36.5) g/dL RDW (11.6-14.4) % Plt Count (163-337) x10^3/uL MPV (9.4-12.4) fL Sodium 135 (135-145) mmol/L Potassium 4.1 (3.5-5.1) mmol/L Chloride 99 (98-107) mmol/L Carbon Dioxide 27 (22-30) mmol/L Anion Gap 12.7 (5-15) MEQ/L BUN 10 (9-20) mg/dL Creatinine 0.70 (0.66-1.25) mg/dL Estimated GFR 108.8 ML/MIN Glucose 222 H (74-106) mg/dL POC Glucometer 218 H 208 H (74 to 106) mg/dL Calcium 8.8 (8.4-10.2) mg/dL Total Bilirubin 0.40 (0.2-1.3) mg/dL AST 30 (17-59) U/L ALT 23 (0-50) U/L Alkaline Phosphatase 133 H (38-126) U/L Serum Total Protein 7.3 (6.3-8.2) g/dL Albumin 3.5 (3.5-5.0) g/dL Triglycerides (30-150) mg/dL Cholesterol (50-200) mg/dL LDL Cholesterol (30-100) mg/dL HDL Cholesterol (40-60) mg/dL Heart Disease Risk Ratio Medications: Medications Discontinued Medications Generic Name Dose Route Start Last Admin Trade Name Freq PRN Reason Stop Dose Admin Acetaminophen 650 mg 06/05/25 15:58 Acetaminophen 325 Mg Tablet PO 07/05/25 15:57 Q4H PRN PRN PAIN, FEVER, HEADACHE Hydrocodone Bitart/Acetaminophen 1 tab 06/05/25 15:58 Hydrocodone/Apap 5/325 1 Tab Tablet PO 06/10/25 15:57 Q4H PRN PRN PAIN Device 1 06/07/25 07:30 06/07/25 16:53 Therapuetic Drug Level Monitor Each IJ 06/07/25 07:31 1 1XONLY ONE Administration Hydromorphone HCl 0.5 mg 06/05/25 15:58 Hydromorphone 1 Mg/1ml Inj IV 06/10/25 15:57 Q4H PRN PRN PAIN Sodium Chloride 1,000 mls @ 999 mls/hr 06/05/25 10:51 06/05/25 12:10 Sodium Chloride 0.9% 1000 Ml IV 06/05/25 11:51 Infused .Q1H1M STA Infusion Sodium Chloride Confirm 06/05/25 11:06 Sodium Chloride 0.9% 1000 Ml Administered 06/05/25 11:07 Dose 1,000 mls @ ud .ROUTE .STK-MED ONE Piperacillin Sod/Tazobactam 100 mls @ 200 mls/hr 06/05/25 11:08 06/05/25 11:53 Sod 4.5 gm/ Sodium Chloride IV 06/05/25 11:37 Infused STAT STA Infusion Vancomycin HCl 1.25 gm in 250 mls @ 150 mls/hr 06/05/25 11:15 06/05/25 14:01 Vancomycin 1.25 Gm/250 Ml Bag IV 06/08/25 11:14 Infused Q12H OFELIA Infusion Sodium Chloride Confirm 06/05/25 11:11 Sodium Chloride 0.9% Administered 06/05/25 11:12 Dose 100 mls @ ud .ROUTE .STK-MED ONE Sodium Chloride 1,000 mls @ 999 mls/hr 06/05/25 12:24 06/05/25 13:43 Sodium Chloride 0.9% 1000 Ml IV 06/05/25 13:24 Infused .Q1H1M STA Infusion Sodium Chloride Confirm 06/05/25 12:27 Sodium Chloride 0.9% 1000 Ml Administered 06/05/25 12:28 Dose 1,000 mls @ ud .ROUTE .STK-MED ONE Sodium Chloride 1,000 mls @ 100 mls/hr 06/05/25 16:00 06/06/25 21:55 Sodium Chloride 0.9% 1000 Ml IV 07/05/25 15:59 100 mls/hr .Q10H OFELIA Administration Piperacillin Sod/Tazobactam 100 mls @ 200 mls/hr 06/05/25 18:00 06/08/25 12:24 Sod 3.375 gm/ Sodium Chloride IV 06/08/25 17:59 200 mls/hr Q6HT OFELIA Administration Sodium Chloride Confirm 06/05/25 17:43 Sodium Chloride 0.9% Administered 06/05/25 17:44 Dose 100 mls @ ud .ROUTE .STK-MED ONE Sodium Chloride Confirm 06/05/25 23:35 Sodium Chloride 0.9% Administered 06/05/25 23:36 Dose 100 mls @ ud .ROUTE .STK-MED ONE Sodium Chloride Confirm 06/06/25 05:14 Sodium Chloride 0.9% Administered 06/06/25 05:15 Dose 100 mls @ ud .ROUTE .STK-MED ONE Vancomycin HCl 1 gm in 200 mls @ 125 mls/hr 06/06/25 08:00 06/09/25 08:41 Vancomycin 1 Gram/200 Ml Bag IV 07/06/25 07:59 125 mls/hr Q8H OFELIA Administration Sodium Chloride Confirm 06/07/25 14:59 Sodium Chloride 0.9% 1000 Ml Administered 06/07/25 15:00 Dose 1,000 mls @ ud .ROUTE .STK-MED ONE Piperacillin Sod/Tazobactam 100 mls @ 200 mls/hr 06/09/25 08:00 06/09/25 13:16 Sod 3.375 gm/ Sodium Chloride IV 06/12/25 07:59 200 mls/hr Q6HT OFELIA Administration Insulin Glargine 25 unit 06/05/25 22:00 06/07/25 22:08 Insulin Glargine 1 Unit SQ 07/05/25 21:59 25 unit BID OFELIA Administration Insulin Glargine 25 unit 06/05/25 16:50 06/05/25 16:56 Insulin Glargine 1 Unit 06/05/25 16:51 25 unit ONCE ONE Administration Insulin Glargine 30 unit 06/08/25 10:00 06/09/25 08:37 Insulin Glargine 1 Unit 07/08/25 09:59 30 unit BID OFELIA Administration Insulin Human Lispro 0 unit 06/05/25 15:58 06/06/25 08:37 Insulin Lispro 1 Unit 07/05/25 15:57 10 unit UD PRN Administration HYPERGLYCEMIA Insulin Human Lispro 0 unit 06/06/25 09:04 06/06/25 12:33 Insulin Lispro 1 Unit 07/06/25 09:03 7 unit UD PRN Administration HYPERGLYCEMIA Insulin Human Lispro 5 unit 06/06/25 12:00 06/06/25 12:33 Insulin Lispro 1 Unit 07/06/25 11:59 5 unit TIDWM OFELIA Administration Insulin Human Lispro 0 unit 06/06/25 16:37 06/07/25 16:37 Insulin Lispro 1 Unit 07/06/25 16:36 10 unit UD PRN Administration HYPERGLYCEMIA Insulin Human Lispro 8 unit 06/06/25 16:37 06/07/25 16:36 Insulin Lispro 1 Unit 07/06/25 11:59 8 unit TIDWM OFELIA Administration Insulin Human Lispro 0 unit 06/07/25 17:08 06/09/25 13:16 Insulin Lispro 1 Unit 07/07/25 17:07 6 unit UD PRN Administration HYPERGLYCEMIA Insulin Human Lispro 14 unit 06/08/25 08:00 06/09/25 13:16 Insulin Lispro 1 Unit 07/08/25 07:59 14 unit TIDWM [facility] Administration Non-Formulary Medication 1 each 06/05/25 16:00 Pharmacy Dose Request: Vancomycin 1 Each IV 07/05/25 15:59 ONCALLTOOR OFELIA Ondansetron HCl 4 mg 06/05/25 15:58 Ondansetron Hcl 4 Mg/2 Ml Vial IV 07/05/25 15:57 Q6H PRN PRN NAUSEA/VOMITING Pantoprazole Sodium 40 mg 06/06/25 10:00 06/09/25 08:37 Protonix (Pantoprazole) 40 Mg Tablet PO 07/06/25 09:59 40 mg DAILY OFELIA Administration Piperacillin Sod/Tazobactam Sod Confirm 06/05/25 11:11 Piperacillin/Tazobactam Sodium 4.5 Gm Vial Administered 06/05/25 11:12 Dose 4.5 gm IV .STK-MED ONE Piperacillin Sod/Tazobactam Sod Confirm 06/05/25 17:43 Piperacillin/Tazobactam Sodium 3.375 Gm Vial Administered 06/05/25 17:44 Dose 3.375 gm IV .STK-MED ONE Piperacillin Sod/Tazobactam Sod Confirm 06/05/25 23:35 Piperacillin/Tazobactam Sodium 3.375 Gm Vial Administered 06/05/25 23:36 Dose 3.375 gm IV .STK-MED ONE Piperacillin Sod/Tazobactam Sod Confirm 06/06/25 05:14 Piperacillin/Tazobactam Sodium 3.375 Gm Vial Administered 06/06/25 05:15 Dose 3.375 gm IV .STK-MED ONE Multi-Disciplinary Progress Notes: Multi-Disciplinary Progress Notes 06/09/25 14:22 Case Management Note by Lisa Rodriguez ROUNDED ON PATIENT, DRESSING CHANGE ORDERS RECEIVED-PLACED IN DC INSTRUCTIONS. Lorenzo DUNHAM PLANS TO CHANGE DRESSINGS PRIOR TO DC. SHE WILL ALSO SEND HOME WITH A COUPLE OF DAYS OF DRESSING CHANGE SUPPLIES UNTIL HE IS ABLE TO GET HIS OWN. 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 PATIENT CAN WORK WITH WOUNDS COVERED AND COMPRESSION STOCKINGS IN PLACE. PATIENT WILL NEED SENT HOME WITH SURGICAL SANDEL TO WEAR WHEN NOT DRIVING. Initialized on 06/09/25 14:22 - END OF NOTE 06/09/25 10:46 Case Management Note by Lisa Rodriguez S/W PATIENT - HE CONTINUES TO PLAN TO DC HOME AT TIME OF DC. PER NURSING- PATIENT AMBULATING WITHOUT DIFFICULTY. WILL NEED DRESSING CHANGES FIGURED OUT WITH DR. CHING. 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 PATIENT PLANS TO DISCUSS THIS WITH DR. CHING WHEN HE ROUNDS TODAY Initialized on 06/09/25 10:46 - END OF NOTE Assessment/Plan (1) Cellulitis and abscess Status: Acute Code(s): L03.90 - CELLULITIS, UNSPECIFIED; L02.91 - CUTANEOUS ABSCESS, UNSPECIFIED (2) Diabetic foot ulcer Status: Acute Qualifiers: Diabetic foot ulcer location: unspecified part of foot Diabetes mellitus type: other specified (including JUANCHO) Laterality: unspecified laterality Non-pressure ulcer stage: unspecified non-pressure ulcer stage Qualified Code(s): E13.621 - Other specified diabetes mellitus with foot ulcer; L97.509 - Non-pressure chronic ulcer of other part of unspecified foot with unspecified severity Assessment & Plan: Patient examination and evaluation. MRI reviewed demonstrating soft tissue swelling with no evidence of osteomyelitis. Wounds appear to be improving at this time to the dorsal aspect of the left foot and medial plantar aspect of the right foot. Cultures have returned demonstrating largely sensitive bacterial growth to the right lower extremity and a negative culture to the left. At this time recommendation has been made for Levaquin 500 mg p.o. daily for the next 10 days. Patient has provide been provided instructions for wound care on discharge as he will not be able to follow-up with his occupation for approximately 3 weeks. We have set up a follow-up appointment for July 05, 2025 however patient has been advised to call us for any worsening symptoms while he is on the road. Code(s): E11.621 - TYPE 2 DIABETES MELLITUS WITH FOOT ULCER; L97.509 - NON- PRESSURE CHRONIC ULCER OTH PRT UNSP FOOT W UNSP SEVERITY (3) Pseudohyponatremia Status: Resolved Code(s): R79.89 - OTHER SPECIFIED ABNORMAL FINDINGS OF BLOOD CHEMISTRY
== END 2025-06-09 15:45 | disposition home or self-care (01) | DRG 638 ==
LOC: ED 10:39 → MED SURG 14:50
PROVIDERS: ADMIT Internal Medicine; ATTEND Internal Medicine
DX: E11.621 Type 2 diabetes mellitus with foot ulcer (principal); N39.0 Urinary tract infection, site not specified; L97.519 Non-pressure chronic ulcer of other part of right foot with unspecified severity; L97.529 Non-pressure chronic ulcer of other part of left foot with unspecified severity; D64.9 Anemia, unspecified; E78.5 Hyperlipidemia, unspecified; E11.65 Type 2 diabetes mellitus with hyperglycemia; B95.8 Unspecified staphylococcus as the cause of diseases classified elsewhere; R79.89 Other specified abnormal findings of blood chemistry; Z79.899 Other long term (current) drug therapy; R60.0 Localized edema